=== PATIENT | female | born 1975 | race Hispanic/Latino ===

== ENCOUNTER 2019-12-01 23:22 | Emergency (ER) | payer SELFPAY ==
[2019-12-01] MEDS ORDERED: ONDANSETRON 4 MG (ODT) TAB ONE (23:56)
[2019-12-01] MEDS ORDERED: MECLIZINE HCL 12.5 MG TAB ONE (23:56)
--- NOTE | 2019-12-02 01:10 | ER ---
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 No other neuro deficits reported or assessed at this time. Coronavirus screen: The patient has NOT traveled to a country currently being monitored by the [facility] within the last 14 days. The patient has NOT had contact with any known and/or suspected case of coronavirus. Ebola Screen: Patient negative for fever greater than or equal to 101.5 degrees Fahrenheit, and additional compatible Ebola Virus Disease symptoms Patient denies exposure to infectious person. Patient denies travel to an Ebola-affected area in the 21 days before illness onset. No symptoms or risks identified at this time. Initial Sepsis Screen: Does the patient meet any 2 criteria? HR > 90 bpm. Does the patient have a suspected source of infection? No. Patient's initial sepsis screen is negative. Risk Assessment: Do you want to hurt yourself or someone else? Patient reports no desire to harm self or others. 23:40 Method Of Arrival: Ambulatory sg 23:40 Acuity: JOE 2 sg 23:40 Note pt observed to be incontinent of urine at this time. sg Historical: - Allergies: 23:42 No Known Allergies; sg - PMHx: 23:42 Hypothyroidism; sg - PSHx: 23:42 brain sugery; sg - Immunization history:: Adult Immunizations not up to date. - Social history:: Smoking status: Patient denies any tobacco usage or history of. Screenin:40 Abuse screen: Denies threats or abuse. Denies injuries from another. Nutritional sg screening: No deficits noted. Tuberculosis screening: No symptoms or risk factors identified. Never had TB. Fall Risk None identified. Assessment: 23:40 General: Appears in no apparent distress. well groomed, well developed, well nourished, sg Behavior is calm, cooperative, appropriate for age. Pain: Denies pain. 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 Gait is steady, Speech is normal, Facial symmetry appears normal, Reports dizziness, since 2300. Cardiovascular: Patient's skin is warm and dry. Respiratory: Airway is patent Respiratory effort is even, unlabored, Respiratory pattern is regular, symmetrical. GI: Abdomen is round non-distended, Reports nausea, vomiting. : No signs and/or symptoms were reported regarding the genitourinary system. EENT: No signs and/or symptoms were reported regarding the EENT system. Derm: Skin is pink, warm \\T\\ dry. Musculoskeletal: Circulation, motion, and sensation intact. Range of motion: intact in all extremities. 12/01 00:15 Reassessment: Patient and/or family updated on plan of care and expected duration. Pain ea level reassessed. Patient is alert, oriented x 3, equal unlabored respirations, skin warm/dry/pink. 01:43 Reassessment: Patient and/or family updated on plan of care and expected duration. Pain ea level reassessed. Patient is alert, oriented x 3, equal unlabored respirations, skin warm/dry/pink. Discharge instruction given to patient, verbalized the understanding of instruction, pt left ED accompanied by family. Pt tolerating well. Vital Signs: 11/30 23:40 BP 152 / 80; Pulse 80; Resp 18; Temp 97.7; Pulse Ox 100% on R/A; sg 12/01 01:43 BP 107 / 68; Pulse 68; Resp 18; Pulse Ox 100% on R/A; ea ED Course: 11/30 23:33 Patient arrived in ED. es 23:36 Alvin Jones MD is Attending Physician. tw4 23:42 Triage completed. sg 23:42 Arm band placed on. sg 23:42 Patient has correct armband on for positive identification. Bed in low position. Call ea light in reach. Side rails up X2. 23:49 Saumya Chi, MANUELA is Primary Nurse. ea 12/01 01:44 No provider procedures requiring assistance completed. Patient did not have IV access ea during this emergency room visit. Administered Medications: 11/30 23:54 Drug: Zofran (Ondansetron) 4 mg Route: PO; ea 12/01 01:40 Follow up: Response: No adverse reaction ea 00:15 Drug: Meclizine 25 mg Route: PO; ea 01:40 Follow up: Response: No adverse reaction ea Outcome: 01:09 Discharge ordered by . tw4 01:46 Discharged to home ambulatory, with family. ea 01:46 Condition: stable 01:46 Discharge instructions given to patient, Instructed on discharge instructions, follow up and referral plans. medication usage, Demonstrated understanding of instructions, follow-up care, medications, Prescriptions given X 2. 01:47 Patient left the ED. ea Signatures: Kuldeep Gallego, RN RN Elsa Somers Elena RN RN Alvin Martines MD MD tw4
[2019-12-02 01:55] VITALS: BP 107/68; O2SAT 100
[2019-12-02 02:28] VITALS: TEMP 97.7
--- NOTE | 2019-12-03 01:54 | EDPHYS ---
Physician Documentation [facility] Name: Mayra Gallo Age: 44 yrs Sex: Female : 1975 Arrival Date: 12/01/2019 Time: 23:33 Bed 5 Private MD: ED Physician Alvin Jones HPI: 12/01 03:56 This 44 yrs old Female presents to ER via Ambulatory with complaints of tw4 Dizziness, Headache, Vomiting. 03:56 The patient presents with sense of spinning. Onset: The symptoms/episode began/occurred tw4 just prior to arrival, today. Context: occurred at home. Modifying factors: The symptoms are alleviated by nothing, the symptoms are aggravated by nothing. Associated signs and symptoms: The patient has no apparent associated signs or symptoms. Severity of symptoms: At their worst the symptoms were mild in the emergency department the symptoms are unchanged. The patient has not experienced similar symptoms in the past. Historical: - Allergies: 11/30 23:42 No Known Allergies; sg - PMHx: 23:42 Hypothyroidism; sg - PSHx: 23:42 brain sugery; sg - Immunization history:: Adult Immunizations not up to date. - Social history:: Smoking status: Patient denies any tobacco usage or history of. ROS: 12/01 03:56 Constitutional: Negative for fever, chills, and weight loss, Eyes: Negative for injury, tw4 pain, redness, and discharge. ENT: Positive for ear pain. 03:56 Cardiovascular: Negative for chest pain, palpitations, and edema, Respiratory: Negative tw4 for shortness of breath, cough, wheezing, and pleuritic chest pain, Abdomen/GI: Negative for abdominal pain, nausea, vomiting, diarrhea, and constipation, Skin: Negative for injury, rash, and discoloration. 03:56 Neuro: Positive for dizziness, Negative for altered mental status, headache, hearing loss, loss of consciousness, numbness, seizure activity, speech changes, syncope, near syncope, tinnitus, tremor, visual changes, weakness. Exam: 03:56 Constitutional: This is a well developed, well nourished patient who is awake, alert, tw4 and in no acute distress. Head/Face: Normocephalic, atraumatic. Chest/axilla: Normal chest wall appearance and motion. Nontender with no deformity. No lesions are appreciated. Cardiovascular: Regular rate and rhythm with a normal S1 and S2. No gallops, murmurs, or rubs. Normal PMI, no JVD. No pulse deficits. Respiratory: Lungs have equal breath sounds bilaterally, clear to auscultation and percussion. No rales, rhonchi or wheezes noted. No increased work of breathing, no retractions or nasal flaring. Abdomen/GI: Soft, non-tender, with normal bowel sounds. No distension or tympany. No guarding or rebound. No evidence of tenderness throughout. MS/ Extremity: Pulses equal, no cyanosis. Neurovascular intact. Full, normal range of motion. Neuro: Awake and alert, GCS 15, oriented to person, place, time, and situation. Cranial nerves II-XII grossly intact. Motor strength 5/5 in all extremities. Sensory grossly intact. Cerebellar exam normal. Normal gait. Vital Signs: 11/30 23:40 BP 152 / 80; Pulse 80; Resp 18; Temp 97.7; Pulse Ox 100% on R/A; sg 12/01 01:43 BP 107 / 68; Pulse 68; Resp 18; Pulse Ox 100% on R/A; ea MDM: 00:04 Patient medically screened. tw4 03:56 Differential diagnosis: generalized weakness, idiopathic dizziness, near-syncope, tw4 vertigo. Data reviewed: vital signs, nurses notes. Counseling: I had a detailed discussion with the patient and/or guardian regarding: the historical points, exam findings, and any diagnostic results supporting the discharge/admit diagnosis. Medication response: Zofran relieved the patient's nausea. meclizine. Response to treatment: the patient's symptoms have markedly improved after treatment, and as a result, I will discharge patient. Special discussion: I discussed with the patient/guardian in detail that at this point there is no indication for admission to the hospital. It is understood, however, that if the symptoms persist or worsen the patient needs to return immediately for re-evaluation. Administered Medications: 11/30 23:54 Drug: Zofran (Ondansetron) 4 mg Route: PO; ea 12/01 01:40 Follow up: Response: No adverse reaction ea 00:15 Drug: Meclizine 25 mg Route: PO; ea 01:40 Follow up: Response: No adverse reaction ea Disposition: 04:05 Chart complete. tw4 Disposition: 12/02/19 01:09 Discharged to Home. Impression: Vertigo of central origin, right ear. - Condition is Stable. - Discharge Instructions: Dizziness, Vertigo, Vertigo, [id number]. - Prescriptions for Meclizine 25 mg Oral Tablet - take 1 tablet by ORAL route every 8 hours As needed; 30 tablet. Zofran 4 mg Oral Tablet - take 1 tablet by ORAL route every 12 hours As needed; 20 tablet. - Medication Reconciliation Form, Thank You Letter, Antibiotic Education, Prescription Opioid Use form. - Follow up: Private Physician; When: Upon discharge from the Emergency Department; Reason: Recheck today's complaints, Continuance of care, Re-evaluation by your physician. - Problem is new. - Symptoms have improved. Signatures: Kuldeep Gallego RN Saumya Rivers RN Alvin Anderson ea, MD MD tw4 Corrections: (The following items were deleted from the chart) 01:47 01:09 12/02/2019 01:09 Discharged to Home. Impression: Vertigo of central origin, right ea ear. Condition is Stable. Forms are Medication Reconciliation Form, Thank You Letter, Antibiotic Education, Prescription Opioid Use. Follow up: Private Physician; When: Upon discharge from the Emergency Department; Reason: Recheck today's complaints, Continuance of care, Re-evaluation by your physician. Problem is new. Symptoms have improved. tw4 03:59 03:56 Cardiovascular: Negative for chest pain, palpitations, and edema, Respiratory: tw4 Negative for shortness of breath, cough, wheezing, and pleuritic chest pain, Abdomen/GI: Negative for abdominal pain, nausea, vomiting, diarrhea, and constipation, Back: Negative for injury and pain, Skin: Negative for injury, rash, and discoloration, Neuro: Negative for headache, weakness, numbness, tingling, and seizure, tw4
== END 2019-12-02 01:47 | disposition home or self-care (01) ==
LOC: ER 23:22
DX: H81.4 Vertigo of central origin (principal)
CPT/HCPCS: 99283; J8597

== ENCOUNTER 2020-01-04 19:10 | Emergency (ER) | payer SELFPAY ==
--- NOTE | 2020-01-04 20:41 | EDPHYS ---
Physician Documentation [facility] Name: Mayra Gallo Age: 44 yrs Sex: Female : 1975 Arrival Date: 01/04/2020 Time: 19:12 Bed 15 Private MD: ED Physician Alvin Jones HPI: 01/03 23:53 This 44 yrs old Female presents to ER via Ambulatory with complaints of tw4 Anxious. 23:53 The patient presents to the emergency department with anxiety. Onset: The tw4 symptoms/episode began/occurred today. Past psychiatric history: Prior diagnosis: no previous psychiatric diagnosis known. Associated signs and symptoms: The patient has no apparent associated signs or symptoms. The patient has not experienced similar symptoms in the past. 23:53 Severity of symptoms: At their worst the symptoms were mild in the emergency department tw4 the symptoms are unchanged. 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 - Social history:: Smoking status: Patient denies any tobacco usage or history of. ROS: 23:53 Psych: Positive for anxiety, Negative for depression, drug dependence, alcohol tw4 dependence, auditory hallucinations. 23:53 Constitutional: Negative for fever, chills, and weight loss, Eyes: Negative for injury, tw4 pain, redness, and discharge, Respiratory: Negative for shortness of breath, cough, wheezing, and pleuritic chest pain, Abdomen/GI: Negative for abdominal pain, nausea, vomiting, diarrhea, and constipation. 23:53 Back: Negative for injury and pain, MS/Extremity: Negative for injury and deformity, Skin: Negative for injury, rash, and discoloration. 23:53 Cardiovascular: Positive for palpitations, Negative for chest pain, edema, orthopnea. Exam: 23:53 Constitutional: This is a well developed, well nourished patient who is awake, alert, tw4 and in no acute distress. Head/Face: Normocephalic, atraumatic. Chest/axilla: Normal chest wall appearance and motion. Nontender with no deformity. No lesions are appreciated. Cardiovascular: Regular rate and rhythm with a normal S1 and S2. No gallops, murmurs, or rubs. Normal PMI, no JVD. No pulse deficits. Respiratory: Lungs have equal breath sounds bilaterally, clear to auscultation and percussion. No rales, rhonchi or wheezes noted. No increased work of breathing, no retractions or nasal flaring. Abdomen/GI: Soft, non-tender, with normal bowel sounds. No distension or tympany. No guarding or rebound. No evidence of tenderness throughout. Skin: Warm, dry with normal turgor. Normal color with no rashes, no lesions, and no evidence of cellulitis. MS/ Extremity: Pulses equal, no cyanosis. Neurovascular intact. Full, normal range of motion. Neuro: Awake and alert, GCS 15, oriented to person, place, time, and situation. Cranial nerves II-XII grossly intact. Motor strength 5/5 in all extremities. Sensory grossly intact. Cerebellar exam normal. Normal gait. Vital Signs: 19:18 BP 126 / 88; Pulse 97; Resp 16 S; Temp 97.5(TE); Pulse Ox 99% on R/A; Weight 69.85 kg ca1 (R); Height 5 ft. 3 in. (160.02 cm) (R); 20:45 BP 122 / 68; Pulse 92; Resp 18; Temp 97.8; Pulse Ox 100% on R/A; mg2 19:18 Body Mass Index 27.28 (69.85 kg, 160.02 cm) ca1 MDM: 19:42 Patient medically screened. tw4 23:55 Differential diagnosis: acute psychotic break, depression. Data reviewed: vital signs, tw4 nurses notes, EKG. Data interpreted: Pulse oximetry: Interpretation: normal. Counseling: I had a detailed discussion with the patient and/or guardian regarding: the historical points, exam findings, and any diagnostic results supporting the discharge/admit diagnosis. Special discussion: I discussed with the patient/guardian in detail that at this point there is no indication for admission to the hospital. It is understood, however, that if the symptoms persist or worsen the patient needs to return immediately for re-evaluation. 01/03 19:44 Order name: EKG; Complete Time: 19:45 tw4 EC:53 Rate is 92 beats/min. Rhythm is regular. QRS [place] is Normal. [place] interval is normal. QRS tw4 interval is normal. QT interval is normal. No Q waves. T waves are Normal. No ST changes noted. Clinical impression: Normal ECG. Interpreted by me. Reviewed by me. Administered Medications: No medications were administered Disposition: 01/04/20 20:41 Discharged to Home. Impression: Anxiety disorder, unspecified. - Condition is Stable. - Discharge Instructions: Panic Attacks, Palpitations, Social Anxiety Disorder. - Medication Reconciliation Form, Thank You Letter, Antibiotic Education, Prescription Opioid Use form. - Follow up: Private Physician; When: Upon discharge from the Emergency Department; Reason: Recheck today's complaints, Continuance of care, Re-evaluation by your physician. - Problem is new. - Symptoms have improved. Signatures: Alvin Jones MD MD tw4 Luiz Laguna RN RN mg2 Sandeep, MANUELA Valentine RN ca1 Corrections: (The following items were deleted from the chart) 21:00 20:41 01/04/2020 20:41 Discharged to Home. Impression: Anxiety disorder, unspecified. mg2 Condition is Stable. Forms are Medication Reconciliation Form, Thank You Letter, Antibiotic Education, Prescription Opioid Use. Follow up: Private Physician; When: Upon discharge from the Emergency Department; Reason: Recheck today's complaints, Continuance of care, Re-evaluation by your physician. Problem is new. Symptoms have improved. tw4 23:55 23:53 Constitutional: Negative for fever, chills, and weight loss, Eyes: Negative for tw4 injury, pain, redness, and discharge, Cardiovascular: Negative for chest pain, palpitations, and edema, Respiratory: Negative for shortness of breath, cough, wheezing, and pleuritic chest pain, Abdomen/GI: Negative for abdominal pain, nausea, vomiting, diarrhea, and constipation, Back: Negative for injury and pain, MS/Extremity: Negative for injury and deformity, tw4
--- NOTE | 2020-01-04 20:41 | ER ---
Nurse's Notes [facility] Name: Mayra Gallo Age: 44 yrs Sex: Female : 1975 Arrival Date: 01/04/2020 Time: 19:12 Bed 15 Private MD: Diagnosis: Anxiety disorder, unspecified Presentation: 01/03 19:18 Chief complaint: Patient states: Took Cephalexin 500 mg, Ibuprofen 600 mg, energy ca1 drink, tea and coffee at the same time. I feel weird, blood rushing to me head, nervous and anxious. Coronavirus screen: Proceed with normal triage. Patient denies a cough. Patient denies shortness of breath or difficulty breathing. Patient denies measured and/or subjective temperature greater than 100.4F prior to today's visit. Patient denies travel on a cruise ship or to a country the [facility] currently lists as an affected area. Patient denies contact with known and/or suspected case of COVID-19. Ebola Screen: Patient negative for fever greater than or equal to 101.5 degrees Fahrenheit, and additional compatible Ebola Virus Disease symptoms Patient denies exposure to infectious person. Patient denies travel to an Ebola-affected area in the 21 days before illness onset. No symptoms or risks identified at this time. Initial Sepsis Screen: Does the patient meet any 2 criteria? No. Patient's initial sepsis screen is negative. Does the patient have a suspected source of infection? No. Patient's initial sepsis screen is negative. Risk Assessment: Do you want to hurt yourself or someone else? Patient reports no desire to harm self or others. Onset of symptoms was January 04, 2020 at 16:30. 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 - Social history:: Smoking status: Patient denies any tobacco usage or history of. Screenin:58 Abuse screen: Denies threats or abuse. Denies injuries from another. Nutritional mg2 screening: No deficits noted. Tuberculosis screening: No symptoms or risk factors identified. Fall Risk None identified. Assessment: 20:58 General: Appears in no apparent distress. comfortable, Behavior is calm, cooperative. mg2 Pain: Denies pain. Neuro: Level of Consciousness is awake, alert, obeys commands, Oriented to person, place, time, situation. Cardiovascular: Capillary refill < 3 seconds Patient's skin is warm and dry. Cardiovascular: Reports palpitations. Respiratory: Airway is patent Respiratory effort is even, unlabored, Respiratory pattern is regular, symmetrical. GI: No signs and/or symptoms were reported involving the gastrointestinal system. : No signs and/or symptoms were reported regarding the genitourinary system. EENT: No signs and/or symptoms were reported regarding the EENT system. Derm: Skin is intact, is healthy with good turgor, Skin is pink, warm \T\ dry. normal. Musculoskeletal: Circulation, motion, and sensation intact. Capillary refill < 3 seconds. Vital Signs: 19:18 BP 126 / 88; Pulse 97; Resp 16 S; Temp 97.5(TE); Pulse Ox 99% on R/A; Weight 69.85 kg ca1 (R); Height 5 ft. 3 in. (160.02 cm) (R); 20:45 BP 122 / 68; Pulse 92; Resp 18; Temp 97.8; Pulse Ox 100% on R/A; mg2 19:18 Body Mass Index 27.28 (69.85 kg, 160.02 cm) ca1 ED Course: 19:12 Patient arrived in ED. cl3 19:22 Triage completed. ca1 19:24 Arm band placed on right wrist. ca1 19:30 Luiz Laguna, RN is Primary Nurse. mg2 19:40 EKG done, by ED staff. lt1 19:41 Call light in reach. Door closed. Lights dimmed. Warm blanket given. Verbal reassurance lt1 given. 19:42 Alvin Jones MD is Attending Physician. tw4 20:59 No provider procedures requiring assistance completed. Patient did not have IV access mg2 during this emergency room visit. Administered Medications: No medications were administered Outcome: 20:41 Discharge ordered by . tw4 20:59 Discharged to home ambulatory. mg2 20:59 Condition: stable 20:59 Discharge instructions given to patient, Instructed on discharge instructions, follow up and referral plans. Demonstrated understanding of instructions, follow-up care. 21:00 Patient left the ED. mg2 Signatures: Alvin Jones MD MD tw4 Luiz Laguna RN RN mg2 Meme Hopkins RN RN ca1 Maryuri, Teetee 1 Brayden Chawla cl3
[2020-01-04 21:20] VITALS: BP 122/68; TEMP 97.8; O2SAT 100
--- NOTE | 2020-01-06 07:41 | EKG ---
Test Date: 2020-01-04 Test Time: 19:36:50 Certified Ophthalmic Technologist: XIAOT MEASUREMENT RESULTS: Intervals: Rate: 92 DE: 160 QRSD: 74 QT: 378 QTc: 467 [place]: P: 45 DE: 160 QRS: 18 T: 33 INTERPRETIVE STATEMENTS: Normal sinus rhythm Normal ECG No previous ECG available for comparison Electronically Signed On 01-06-20 07:39:14 CDT by Naveen Reynoso
== END 2020-01-04 21:00 | disposition home or self-care (01) ==
LOC: ER 19:10
DX: F41.9 Anxiety disorder, unspecified (principal); E03.9 Hypothyroidism, unspecified
CPT/HCPCS: 93005; 99283

== ENCOUNTER 2021-04-29 12:01 | Emergency (ER) | payer SELFPAY ==
--- OUTSIDE RECORDS SUMMARY | 2021-04-29 12:03 | XMS REPORT | Continuity of Care Document ---
:1975 Author Organization [facility] t Address [address] [place] [address] Care Team Providers Name Role Phone Unavailable Unavailable Unavailable Problems This patient has no known problems. Allergies, Adverse Reactions, Alerts This patient has no known allergies or adverse reactions. Medications This patient has no known medications. Procedures This patient has no known procedures. Results Test Description Test Time Test Comments Results Result [facility] e Comments SCR MAMM 2021-01-21 BILATERAL MARICARMEN 09:50:45 CAD DIGITAL Name: Mercedes : 1975 Sex: F - SCR MAMM BILATERAL MARICARMEN CAD DIGITALBILATERAL DIGITAL SCREENING MAMMOGRAM 3D/2D WITH CAD: 01/16/2021LINICAL: Asymptomatic. Digital breast tomosynthesis was performed in addition to routine CC and MLO views. Current mammographic images were evaluated by [employer] ImageVeriShow CAD (computed aided detection) software. Comparison is made to exam dated 12/09/2014 mammogram - [facility] Mammography. The tissue of both breasts is extremely dense, which lowers the sensitivity of mammography. There are nodular densities bilaterally that most likely represent benign fibroadenomas, cysts, or nodular breast tissue, however this must be confirmed with ultrasound. No suspicious mass, architectural distortion, malignant type calcification, or lymph node abnormality detected. IMPRESSION: INCOMPLETE: ADDITIONAL IMAGING EVALUATION NEEDEDBilateral ultrasound recommended. Chelsea castro/randi:01/21/2021 09:50:45 Trade Economist: Brittney Cardozo MM, [facility] Mammographyletter sent: Additional Imaging Mammogram BI-RADS: 0 Incomplete: Additional Imaging Evaluation Needed
[2021-04-29] MEDS ORDERED: ONDANSETRON 4 MG (ODT) TAB ONE (13:55)
[2021-04-29] MEDS ORDERED: NA CHLORIDE 0.9% 1,000 ML ONE (13:55)
[2021-04-29 14:05] LABS: Absolute Lymphocytes (CBC) 0.8 K/uL (0.7-4.9); Basophils % 0.6 % (0-1.3); Hematocrit 38.2 % (36.0-45.0); Lymphocytes % 19.4 % (15.3-44.8); MPV 7.7 fL (7.6-11.3); RBC Red Blood Cell Count 4.68 M/uL (3.86-4.86)
[2021-04-29 14:08] LABS: ALT/SGPT 24 U/L (12-78); AST/SGOT 16 U/L (15-37); Alkaline Phosphatase 63 U/L (45-117); BUN Blood Urea Nitrogen 11 mg/dL (7-18); Bicarbonate 28 mmol/L (21-32); Bilirubin Direct < 0.1 mg/dL (0-0.2); Bilirubin Total 0.1 mg/dL (0.2-1.0); Glucose Level 104 mg/dL (74-106); Lipase 132 U/L (73-393); Potassium 3.8 mmol/L (3.5-5.1); Sodium Level 138 mmol/L (136-145)
--- NOTE | 2021-04-29 14:50 | RAD REPORT ---
EXAM DESCRIPTION: CT - Abdomen Pelvis W Contrast - 04/29/2021 2:28 pm CLINICAL HISTORY: Abdominal pain COMPARISON: none. TECHNIQUE: Computed axial tomography of the abdomen pelvis was obtained. 100 cc Isovue-300 was admin istered intravenously. Oral contrast was not requested which limits evaluation of bowel. All CT scans are performed using dose optimization technique as appropriate and may include automated exposure control or mA/KV adjustment according to patient size. FINDINGS: Small hepatic cysts Spleen, pancreas, adrenal and kidneys appear unremarkable. There is no evidence of diverticulitis. Normal appendix IMPRESSION: No acute abnormality is displayed.
--- NOTE | 2021-04-29 16:12 | ER ---
Nurse's Notes [facility] Name: Mayra Gallo Age: 45 yrs Sex: Female : 1975 Arrival Date: 04/29/2021 Time: 12:04 Bed DIS11 Private MD: Diagnosis: Coronavirus infection, unspecified Presentation: 04/29 13:28 Chief complaint: Patient states: N/V x 2 days. Coronavirus screen: Client denies travel jl7 out of the [place] in the last 14 days. nausea, vomiting. Client presents with at least one sign or symptom that may indicate coronavirus-19. Standard/surgical mask placed on the client. Provider contacted for isolation considerations. Ebola Screen: No symptoms or risks identified at this time. Initial Sepsis Screen: Does the patient meet any 2 criteria? No. Patient's initial sepsis screen is negative. Does the patient have a suspected source of infection? No. Patient's initial sepsis screen is negative. Risk Assessment: Do you want to hurt yourself or someone else? Patient reports no desire to harm self or others. Onset of symptoms was April 28, 2021. 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 - Social history:: Smoking status: Patient denies any tobacco usage or history of. Vital Signs: 13:28 BP 99 / 81; Pulse 124; Resp 15; Temp 98.5; Pulse Ox 100% ; jl7 16:00 BP 105 / 72; Pulse 88; Resp 16 S; Pulse Ox 99% on R/A; aa5 ED Course: 12:04 Patient arrived in ED. ds1 13:30 Triage completed. jl7 13:30 Lyssa Nunez FNP-C is [facility]. kb 13:30 Steve Cole MD is Attending Physician. kb 13:30 Arm band placed on right wrist. Patient placed in waiting room, Patient notified of jl7 wait time. 14:28 CT Abd/Pelvis - IV Contrast Only In Process Unspecified. EDMS 16:30 IV discontinued, intact, bleeding controlled, No redness/swelling at site. ld1 Administered Medications: 13:35 Drug: NS 0.9% 1000 ml Route: IV; Rate: 1000 ml; Site: right antecubital; jl7 13:35 Drug: Zofran (Ondansetron) 4 mg Route: PO; aa5 14:48 Not Given (Physician Discretion): Zofran (Ondansetron) 4 mg IVP once; over 2 minutes aa5 Outcome: 16:12 Discharge ordered by . adonis 16:29 Discharged to home ambulatory. ld1 16:29 Condition: stable 16:29 Discharge instructions given to patient, Instructed on discharge instructions, follow up and referral plans. medication usage, Demonstrated understanding of instructions, follow-up care, medications. 16:30 Patient left the ED. ld1 Signatures: Dispatcher [employer] EDDC Lyssa Nunez, PASTRY SUPERVISOR-C PASTRY SUPERVISOR-Ckb Cyndi Geronimo ds1 Nevin Dyer RN RN aa5 Winsome Edouard RN RN jl7 Brittney Alexandre RN RN ld1
--- NOTE | 2021-04-29 16:12 | EDPHYS ---
Physician Documentation [facility] Name: Mayra Gallo Age: 45 yrs Sex: Female : 1975 Arrival Date: 04/29/2021 Time: 12:04 Bed DIS11 Private MD: ED Physician Steve Cole HPI: 04/29 14:11 This 45 yrs old Female presents to ER via Ambulatory with complaints of kb Abdominal Pain, Vomiting. 14:22 The patient presents to the emergency department with nausea, vomiting. Onset: The kb symptoms/episode began/occurred yesterday. Possible causes: unknown. The symptoms are aggravated by nothing. The symptoms are alleviated by nothing. Associated signs and symptoms: Pertinent positives: nausea, vomiting. Severity of symptoms: At their worst the symptoms were mild moderate in the emergency department the symptoms are unchanged. The patient has not experienced similar symptoms in the past. The patient has not recently seen a physician. 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 - Social history:: Smoking status: Patient denies any tobacco usage or history of. ROS: 14:11 Constitutional: Negative for fever, chills, and weight loss. kb 14:11 Respiratory: Positive for cough. 14:11 Abdomen/GI: Positive for nausea and vomiting. 14:11 All other systems are negative. Exam: 14:11 Constitutional: This is a well developed, well nourished patient who is awake, alert, kb and in no acute distress. Head/Face: Normocephalic, atraumatic. ENT: Moist Mucous membranes Cardiovascular: Regular rate and rhythm with a normal S1 and S2. No gallops, murmurs, or rubs. No pulse deficits. Respiratory: Respirations even and unlabored. No increased work of breathing, no retractions or nasal flaring. Skin: Warm, dry with normal turgor. Normal color. MS/ Extremity: Pulses equal, no cyanosis. Neurovascular intact. Full, normal range of motion. Neuro: Awake and alert, GCS 15, oriented to person, place, time, and situation. Moves all extremities. Normal gait. Psych: Awake, alert, with orientation to person, place and time. Behavior, mood, and affect are within normal limits. 14:12 Abdomen/GI: Inspection: abdomen appears normal, Bowel sounds: normal, in all quadrants, kb Palpation: soft, in all quadrants, mild abdominal tenderness, in the left upper quadrant and left lower quadrant. Vital Signs: 13:28 BP 99 / 81; Pulse 124; Resp 15; Temp 98.5; Pulse Ox 100% ; jl7 16:00 BP 105 / 72; Pulse 88; Resp 16 S; Pulse Ox 99% on R/A; aa5 MDM: 13:30 Patient medically screened. kb 14:11 Data reviewed: vital signs, nurses notes. Data interpreted: Pulse oximetry: on room air kb is 100 %. Interpretation: normal. 16:11 Counseling: I had a detailed discussion with the patient and/or guardian regarding: the kb historical points, exam findings, and any diagnostic results supporting the discharge/admit diagnosis, lab results, radiology results, the need for outpatient follow up, a family practitioner, to return to the emergency department if symptoms worsen or persist or if there are any questions or concerns that arise at home. 04/29 13:31 Order name: Basic Metabolic Panel; Complete Time: 14:09 kb 04/29 13:31 Order name: CBC with Diff; Complete Time: 14:26 kb 04/29 13:31 Order name: Hepatic Function; Complete Time: 14:09 kb 04/29 13:31 Order name: Lipase; Complete Time: 14:09 kb 04/29 16:12 Order name: SARS-COV-2 RT PCR; Complete Time: 16:12 EDMS 04/29 13:31 Order name: IV Saline Lock; Complete Time: 14:05 kb 04/29 13:31 Order name: Labs collected and sent; Complete Time: 14:05 kb 04/29 14:10 Order name: CT Abd/Pelvis - IV Contrast Only; Complete Time: 14:53 kb Administered Medications: 13:35 Drug: NS 0.9% 1000 ml Route: IV; Rate: 1000 ml; Site: right antecubital; jl7 13:35 Drug: Zofran (Ondansetron) 4 mg Route: PO; aa5 14:48 Not Given (Physician Discretion): Zofran (Ondansetron) 4 mg IVP once; over 2 minutes aa5 Disposition: 04/30 07:20 Co-signature as Attending Physician, Steve Cole MD I agree with the assessment and kdr plan of care. Disposition Summary: 04/29/21 16:12 Discharge Ordered Location: Home kb Condition: Stable kb Diagnosis - Coronavirus infection, unspecified kb Followup: kb - With: Emergency Department - When: As needed - Reason: Worsening of condition Followup: kb - With: Private Physician - When: 2 - 3 days - Reason: Recheck today's complaints, Continuance of care, Re-evaluation by your physician Discharge Instructions: - Discharge Summary Sheet kb - Viral Respiratory Infection, [id number] kb - COVID-19 kb Forms: - Medication Reconciliation Form kb - Thank You Letter kb - Antibiotic Education kb - Prescription Opioid Use kb Prescriptions: - Zofran 4 mg Oral Tablet - take 1 tablet by ORAL route every 6 hours As needed; 20 tablet; Refills: 0, kb Product Selection Permitted Signatures: Dispatcher [employer] EDMS Lyssa Nunez FNP-C FNP-Ckb Rittger, Kevin, MD MD kdr Calderon, Audri, RN RN aa5 Winsome Edouard RN RN jl7 Corrections: (The following items were deleted from the chart) 04/29 14:21 14:11 Constitutional: This is a well developed, well nourished patient who is awake, kb alert, and in no acute distress. Head/Face: Normocephalic, atraumatic. ENT: Moist Mucous membranes Cardiovascular: Regular rate and rhythm with a normal S1 and S2. No gallops, murmurs, or rubs. No pulse deficits. Respiratory: Respirations even and unlabored. No increased work of breathing, no retractions or nasal flaring. Abdomen/GI: Soft, non-tender. No distention Skin: Warm, dry with normal turgor. Normal color. MS/ Extremity: Pulses equal, no cyanosis. Neurovascular intact. Full, normal range of motion. Neuro: Awake and alert, GCS 15, oriented to person, place, time, and situation. Moves all extremities. Normal gait. Psych: Awake, alert, with orientation to person, place and time. Behavior, mood, and affect are within normal limits. kb 14:55 13:32 CORONAVIRUS+MR.LAB.BRZ ordered. EDMS EDMS
[2021-04-29 16:53] VITALS: TEMP 98.5
[2021-04-29 16:55] VITALS: BP 105/72; O2SAT 99
== END 2021-04-29 16:30 | disposition home or self-care (01) ==
LOC: ER 12:01
DX: U07.1 COVID-19 (principal)
CPT/HCPCS: 36415; 74177; 80048; 80076; 83690; 85025; 99283; J7030; Q9967; U0003

== ENCOUNTER 2021-05-07 19:32 | Emergency (ER) | payer SELFPAY ==
--- OUTSIDE RECORDS SUMMARY | 2021-05-07 19:36 | XMS REPORT | Continuity of Care Document ---
:1975 Author Organization [facility] t Address [address] [place] [address] Care Team Providers Name Role Phone Unavailable Unavailable Unavailable Problems This patient has no known problems. Allergies, Adverse Reactions, Alerts This patient has no known allergies or adverse reactions. Medications This patient has no known medications. Procedures This patient has no known procedures. Results Test Description Test Time Test Comments Results Result [facility] e Comments SCR MAMM 2021-01-21 BILATERAL MARICARMEN 09:50:45 CAD DIGITAL Name: Mercedes : 1975 Sex: F - SCR MAMM BILATERAL MARICARMEN CAD DIGITALBILATERAL DIGITAL SCREENING MAMMOGRAM 3D/2D WITH CAD: 01/16/2021LINICAL: Asymptomatic. Digital breast tomosynthesis was performed in addition to routine CC and MLO views. Current mammographic images were evaluated by [employer] CAD (computed aided detection) software. Comparison is made to exam dated 12/09/2014 mammogram - [facility]. The tissue of both breasts is extremely dense, which lowers the sensitivity of mammography. There are nodular densities bilaterally that most likely represent benign fibroadenomas, cysts, or nodular breast tissue, however this must be confirmed with ultrasound. No suspicious mass, architectural distortion, malignant type calcification, or lymph node abnormality detected. IMPRESSION: INCOMPLETE: ADDITIONAL IMAGING EVALUATION NEEDEDBilateral ultrasound recommended. Chelsea castro/randi:01/21/2021 09:50:45 Employment Appeals Examiner: Brittney Cardozo MM, [facility] Mammography[facility] sent: Additional Imaging Mammogram BI-RADS: 0 Incomplete: Additional Imaging Evaluation Needed
--- NOTE | 2021-05-07 22:22 | EDPHYS ---
Physician Documentation [facility] Name: Mayra Gallo Age: 45 yrs Sex: Female : 1975 Arrival Date: 05/07/2021 Time: 19:35 Bed DX1 Private MD: ED Physician Shy Rosas HPI: 05/07 22:17 This 45 yrs old Female presents to ER via Ambulatory with complaints of sp3 Anxiety. 22:17 45-year-old female with history of hypothyroidism and anxiety treated with sp3 [id number] [place]'s wort presents to the ED for anxiety and questions regarding her COVID-19 diagnosis made on 04/29. Patient states that she was anxious upon arrival but during her wait her anxiety has ceased as evident by her heart rate coming down. All questions regarding her COVID-19 have been answered as they were mainly surrounding, she will be infectious and questions regarding her isolation status. Patient has no further symptoms. She did mention knee pain and abdominal pain when she first got here but she states that those were completely minor and she no longer has them and does not wish to be evaluated for them.. 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 - Social history:: Smoking status: Patient denies any tobacco usage or history of. ROS: 22:19 Constitutional: Negative for fever, chills, and weight loss, Eyes: Negative for injury, sp3 pain, redness, and discharge, Cardiovascular: Negative for chest pain, palpitations, and edema, Respiratory: Negative for shortness of breath, cough, wheezing, and pleuritic chest pain, Abdomen/GI: Negative for abdominal pain, nausea, vomiting, diarrhea, and constipation, MS/Extremity: Negative for injury and deformity, Skin: Negative for injury, rash, and discoloration, Neuro: Negative for headache, weakness, numbness, tingling, and seizure, Allergy/Immunology: Negative for hives, rash, and allergies, Endocrine: Negative for neck swelling, polydipsia, polyuria, polyphagia, and marked weight changes. 22:19 All other systems are negative. Exam: 22:19 Constitutional: This is a well developed, well nourished patient who is awake, alert, sp3 and in no acute distress. Head/Face: Normocephalic, atraumatic. Eyes: Pupils equal round and reactive to light, extra-ocular motions intact. Lids and lashes normal. Conjunctiva and sclera are non-icteric and not injected. Cornea within normal limits. Periorbital areas with no swelling, redness, or edema. Neck: Trachea midline, no thyromegaly or masses palpated, and no cervical lymphadenopathy. Supple, full range of motion without nuchal rigidity, or vertebral point tenderness. No Meningismus. Chest/axilla: Normal chest wall appearance and motion. Nontender with no deformity. No lesions are appreciated. Cardiovascular: Regular rate and rhythm with a normal S1 and S2. No gallops, murmurs, or rubs. Normal PMI, no JVD. No pulse deficits. Respiratory: Lungs have equal breath sounds bilaterally, clear to auscultation and percussion. No rales, rhonchi or wheezes noted. No increased work of breathing, no retractions or nasal flaring. Abdomen/GI: Soft, non-tender, with normal bowel sounds. No distension or tympany. No guarding or rebound. No evidence of tenderness throughout. Back: No spinal tenderness. No costovertebral tenderness. Full range of motion. Skin: Warm, dry with normal turgor. Normal color with no rashes, no lesions, and no evidence of cellulitis. MS/ Extremity: Pulses equal, no cyanosis. Neurovascular intact. Full, normal range of motion. Neuro: Awake and alert, GCS 15, oriented to person, place, time, and situation. Cranial nerves II-XII grossly intact. Motor strength 5/5 in all extremities. Sensory grossly intact. Cerebellar exam normal. Normal gait. Vital Signs: 19:58 Weight 63.5 kg (R); Height 5 ft. 3 in. (160.02 cm) (R); Pain 1/10; kg 20:05 BP 106 / 71; Pulse 108; Resp 20; Temp 98.2(O); Pulse Ox 98% on R/A; Weight 63.5 kg (R); kg Height 5 ft. 3 in. (160.02 cm); Pain 1/10; 21:50 BP 110 / 75; Pulse 99; Resp 19; Pulse Ox 98% on R/A; ld1 20:05 Body Mass Index 24.80 (63.50 kg, 160.02 cm) kg MDM: 22:17 Patient medically screened. sp3 22:20 Data reviewed: vital signs, nurses notes. ED course: Patient sitting calmly in no acute sp3 distress with no further anxiety. Heart rate is 88 on my evaluation. Remainder vital signs remained normal and stable. I have advised her to follow-up with her PCP regarding her anxiety and all questions regarding COVID-19 have been answered. We will discharge patient at this time. No further work-up indicated and no critical emergency exists. Patient is not homicidal, suicidal or psychotic.. Administered Medications: No medications were administered Disposition Summary: 05/07/21 22:21 Discharge Ordered Location: Home sp3 Condition: Stable sp3 Diagnosis - Anxiety disorder, unspecified sp3 Followup: sp3 - With: Private Physician - When: - Reason: Recheck today's complaints, Re-evaluation by your physician Discharge Instructions: - Discharge Summary Sheet sp3 - Generalized Anxiety Disorder, Adult sp3 - 10 Things You Can Do to Manage Your COVID-19 Symptoms at Home - [facility] sp3 - COVID-19: Quarantine vs. Isolation - [facility] sp3 Forms: - Medication Reconciliation Form sp3 - Thank You Letter sp3 - Antibiotic Education sp3 - Prescription Opioid Use sp3 Signatures: India Mauricio, RN RN Shy Del Valle sp3
--- NOTE | 2021-05-07 22:22 | ER ---
Nurse's Notes [facility] Name: Mayra Gallo Age: 45 yrs Sex: Female : 1975 Arrival Date: 05/07/2021 Time: 19:35 Bed DX1 Private MD: Diagnosis: Anxiety disorder, unspecified Presentation: 05/07 19:58 Chief complaint:. Chief complaint: Patient states: Anxiety x 2 days, left knee pain kg that started on her drive to the ER. Pt stated she was diagnosed COVID + 04/29. Coronavirus screen: Client denies travel out of the [place] in the last 14 days. At this time, unable to obtain information related to travel outside the [place] At this time, the client does not indicate any symptoms associated with coronavirus-19. Ebola Screen: Patient negative for fever greater than or equal to 101.5 degrees Fahrenheit, and additional compatible Ebola Virus Disease symptoms Patient denies exposure to infectious person. Patient denies travel to an Ebola-affected area in the 21 days before illness onset. Initial Sepsis Screen: Does the patient meet any 2 criteria? No. Patient's initial sepsis screen is negative. Does the patient have a suspected source of infection? No. Patient's initial sepsis screen is negative. Risk Assessment: Do you want to hurt yourself or someone else? Patient reports no desire to harm self or others. Onset of symptoms was May 05, 2021. 19:58 Method Of Arrival: Ambulatory kg 19:58 Acuity: JOE 4 kg Triage Assessment: 20:01 General: Appears in no apparent distress. Behavior is calm, cooperative, appropriate kg for age, quiet. Pain: Complains of pain in left knee. 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 - Social history:: Smoking status: Patient denies any tobacco usage or history of. Screenin:50 Abuse screen: Denies threats or abuse. Denies injuries from another. Nutritional ld1 screening: No deficits noted. Tuberculosis screening: No symptoms or risk factors identified. Fall Risk None identified. Assessment: 21:50 General: Appears in no apparent distress. comfortable, Behavior is appropriate for age, ld1 anxious. Pain: Denies pain. Neuro: Level of Consciousness is awake, alert, obeys commands, Oriented to person, place, time, situation. Cardiovascular: Capillary refill < 3 seconds Patient's skin is warm and dry. Respiratory: Airway is patent Respiratory effort is even, unlabored, Respiratory pattern is regular, symmetrical. 21:50 GI: Abdomen is flat, non-distended, Bowel sounds present X 4 quads. Abd is soft Abdomen ld1 is tender to palpation X 4 quads. : No signs and/or symptoms were reported regarding the genitourinary system. EENT: No signs and/or symptoms were reported regarding the EENT system. Derm: No signs and/or symptoms reported regarding the dermatologic system. Musculoskeletal: No signs and/or symptoms reported regarding the musculoskeletal system. Vital Signs: 19:58 Weight 63.5 kg (R); Height 5 ft. 3 in. (160.02 cm) (R); Pain 1/10; kg 20:05 BP 106 / 71; Pulse 108; Resp 20; Temp 98.2(O); Pulse Ox 98% on R/A; Weight 63.5 kg (R); kg Height 5 ft. 3 in. (160.02 cm); Pain 1/10; 21:50 BP 110 / 75; Pulse 99; Resp 19; Pulse Ox 98% on R/A; ld1 20:05 Body Mass Index 24.80 (63.50 kg, 160.02 cm) kg ED Course: 19:35 Patient arrived in ED. cf2 20:01 Triage completed. kg 20:01 Arm band placed on left wrist. kg 21:50 Patient has correct armband on for positive identification. Bed in low position. Call ld1 light in reach. Pulse ox on. NIBP on. Warm blanket given. 21:50 No provider procedures requiring assistance completed. Patient did not have IV access ld1 during this emergency room visit. 22:12 Shy Rosas is Attending Physician. sp3 22:36 Brittney Alexandre, MANUELA is Primary Nurse. ld1 Administered Medications: No medications were administered Outcome: 22:21 Discharge ordered by . sp3 22:38 Discharged to home ambulatory. ld1 22:38 Condition: stable 22:38 Discharge instructions given to patient, Instructed on discharge instructions, follow up and referral plans. Demonstrated understanding of instructions, follow-up care. 22:38 Patient left the ED. ld1 Signatures: Guero Ceron cf2 Brittney Alexandre RN RN ld1 India Mauricio RN RN Shy Del Valle sp3 Corrections: (The following items were deleted from the chart) 22:37 21:50 BP 110 / 75; Pulse 99bpm; Resp 19bpm; Pulse Ox 98% RA; ld1 ld1
[2021-05-08 00:56] VITALS: TEMP 98.2; O2SAT 98
[2021-05-08 00:58] VITALS: BP 110/75
== END 2021-05-07 22:38 | disposition home or self-care (01) ==
LOC: ER 19:32
DX: F41.9 Anxiety disorder, unspecified (principal)
CPT/HCPCS: 99283

== ENCOUNTER 2022-02-26 19:44 | Emergency (ER) | payer SELFPAY ==
--- OUTSIDE RECORDS SUMMARY | 2022-02-26 19:47 | XMS REPORT | Continuity of Care Document ---
:1975 Author Organization [facility] t Address [address] [place] [address] [place] [id number] Care Team Providers Name Role Phone Unavailable Unavailable Unavailable Problems This patient has no known problems. Allergies, Adverse Reactions, Alerts This patient has no known allergies or adverse reactions. Medications This patient has no known medications. Procedures This patient has no known procedures. Results Test Description Test Time Test Comments Results Result Comments Source LIPID PANEL 2021-11-16 01:22:39 Test Item Value Reference Range Interpretation Comme nts CHOLESTEROL (test code = 2210) 226 MG/DL <200 H TRIGLYCERIDES (test code = 480 MG/DL <150 H 2231) HDL CHOLESTEROL (test code = 41 MG/DL >39 2219) CALC LDL CHOL (test code = (NOTE) MG/DL <100 U NABLE TO CALCULATE A VALID LDL 2236) CHOLESTEROL WHE N THE TRIGLYCERIDEVAL UE IS GREATER THAN 400 MG/DL. NOTE : CALCULATED LDL IS BASED ON PATRICK -ROBB METHOD WHICHINCLUDES A DJUSTABLE TRIGLYCERIDE:VL DL CHOLESTEROL RATIO.THIS FACT OR VARIES BY MEASURED TRIGLY CERIDE AND NON-HDLCHOLESTE ROL CONCENTRATIONS WITH INCREASED CALCULATED LDL SEENIN HIGHER T RIGLYCERIDE OR LOWER NON-HDL S PECIMENS. FOR MOREINFORMATION , SEE CLIENT ANNOUNCEMENT AT [email or web address] RISK RATIO LDL/HDL (test code 3.07 RATIO <3.22 UNABLE TO = 2238) CALCULATE COMPREHENSIVE METABOLIC [id number] 01:22:39 Test Item Value Reference Range Interpretation Comments GLUCOSE (test code = 107 MG/DL 70-99 H 2216) BUN (test code = 15 MG/DL 6-20 2207) CREATININE (test 0.58 MG/DL 0.60-1.30 L code = 2214) eGFR (2020 CKD-EPI) 112 >60 (test code = 43524) ML/MIN/1.73 CALC BUN/CREAT (test 26 RATIO 6-28 code = 2235) SODIUM (test code = 137 MEQ/L 272-239 1830) POTASSIUM (test code 4.6 MEQ/L 3.5-5.4 = 2228) CHLORIDE (test code 100 MEQ/L 95-107 = 2215) CARBON DIOXIDE (test 18 MEQ/L 19-31 L code = 2206) CALCIUM (test code = 8.9 MG/DL 8.5-10.5 2208) PROTEIN, TOTAL (test 7.2 G/DL 6.1-8.3 code = 222) ALBUMIN (test code = 4.3 G/DL 3.5-5.2 2200) CALC GLOBULIN (test 2.9 G/DL 1.9-3.7 code = 2240) CALC A/G RATIO (test 1.5 RATIO 1.0-2.6 code = 2234) BILIRUBIN, TOTAL <0.2 MG/DL See_Comment [Automated message] (test code = 2207) The [employer] which generated this result transmitted ref erence range: <=1.2. T he reference range was not used to int erpret this result as normal/abnormal . ALKALINE PHOSPHATASE 59 U/L 40-123 (test code = 220) AST (test code = 20 U/L 9-40 2217) ALT (test code = 16 U/L 5-40 UNLE SS 2218) OTHERWISE INDIC ATED, ALL TESTING PER [facility], I [address] [place] [address] LABORATORY DIRE CTOR: STEPHON GOMEZ M.D. CLIA NUMBER [id number] CAP ACCREDITATION N O. [id number] TSH, THIRD [id number] 01:03:53 Test Item Value Reference Range Interpretation Comments TSH, THIRD GENERATION (test code 3.030 UIU/ML 0.400-4.100 = 2821) HEMOGLOBIN [id number] 05:54:09 Test Item Value Reference Range Interpretation Comments HEMOGLOBIN A1c (test code = 31947) 5.5 % 4.2-5.6 CBC W/AUTO DIFF WITH [id number] 04:21:47 Test Item Value Reference Range Interpretation Comments WBC (test code = 7.6 K/UL 3.5-11.0 1001) RBC (test code = 4.41 M/UL 3.80-5.40 1002) HEMOGLOBIN (test code 12.5 G/DL 11.5-15.5 = 1003) HEMATOCRIT (test code 37.7 % 34.0-45.0 = 1004) MCV (test code = 85.5 fL 80.0-99.0 1005) MCH (test code = 28.3 PG 25.0-33.0 1006) MCHC (test code = 33.2 G/DL 31.0-36.0 1007) RDW (test code = 14.9 % 11.5-15.0 1038) NEUTROPHILS (test 60.6 % code = 1008) LYMPHOCYTES (test 27.9 % code = 1010) MONOCYTES (test code 7.4 % = 1011) EOSINOPHILS (test 3.0 % code = 1012) BASOPHILS (test code 0.7 % = 1013) IMMATURE GRANULOCYTES 0.4 % (test code = 1036) NUCLEATED RBCS (test 0.0 /100 See_Comment [Autom ated code = 1065) WBC'S message] The sy stem which generated this result transmitted reference range : 0.0. The refere nce range was not u sed to interpret th is result as normal/abnormal . PLATELET COUNT (test 367 K/UL 130-400 code = 1015) ABSOLUTE NEUTROPHILS 4.58 K/UL 1.50-7.50 (test code = 1066) ABSOLUTE LYMPHOCYTES 2.11 K/UL 1.00-4.00 (test code = 1067) ABSOLUTE MONOCYTES 0.56 K/UL 0.20-1.00 (test code = 1068) ABSOLUTE EOSINOPHILS 0.23 K/UL 0.00-0.50 (test code = 1040) ABSOLUTE BASOPHILS 0.05 K/UL 0.00-0.20 (test code = 1069) ABS IMMATURE 0.03 K/UL 0.00-0.10 GRANULOCYTES (test code = 1020) ABS NUCLEATED RBCS 0.00 K/UL 0.00-0.11 (test code = 65815) SCR MAMM BILATERAL MARICARMEN CAD [id number] 09:50:45 Name: Mercedes : 1975 Sex: F - SCR MAMM BILATERAL MARICARMEN CAD DIGITALBILATERAL DIGITAL SCREENING MAMMOGRAM 3D/2D WITH CAD: 01/16/2021LINICAL: Asymptomatic. Digital breast tomosynthesis was performed in addition to routine CC and MLO views. Current mammographic images were evaluated by [employer] CAD (computed aided detection) software. Com parison is made to exam dated 12/09/2014 mammogram - [facility]. The tissue of both breasts is extremely dense, which lowers the sensitivity of mammography. There are nodular densities bilaterally that most likely represent benign fibroadenomas, cysts, or nodular breast tissue, however this must be confirmed with ultrasound. No suspicious mass, architectural distortion, malignant type calcification, or lymph node abnormality detected. IMPRESSION: INCOMPLETE: ADDITIONAL IMAGING EVALUATION NEEDEDBilateral ultrasound recommended. Chelsea castro/penrad:01/21/2021 09:50:45 Ammonia Solution Preparer: Brittney Cardozo MM, [facility] sent: Additional Imaging Mammogram BI-RADS: 0 Incomplete: Additional Imaging Evaluation Needed
[2022-02-26] MEDS ORDERED: METHYLPREDNISOLONE 125 MG INJ ONE (20:21)
[2022-02-26] MEDS ORDERED: FAMOTIDINE 20 MG TAB ONE (20:22)
[2022-02-26] MEDS ORDERED: NA CHLORIDE 0.9% 1,000 ML ONE (20:22)
[2022-02-26] MEDS ORDERED: DIPHENHYDRAMINE 50 MG/ML VIAL ONE (20:22)
[2022-02-26 20:32] LABS: Absolute Lymphocytes (CBC) 2.2 K/uL (0.7-4.9); Hematocrit 37.9 % (36.0-45.0); Lymphocytes % 32.7 % (15.3-44.8); MPV 7.5 fL (7.6-11.3); RBC Red Blood Cell Count 4.44 M/uL (3.86-4.86)
[2022-02-26 21:01] LABS: AST/SGOT 22 U/L (15-37); Albumin 3.6 g/dL (3.4-5.0); Alkaline Phosphatase 62 U/L (45-117); BUN Blood Urea Nitrogen 16 mg/dL (7-18); Bicarbonate 29 mmol/L (21-32); Bilirubin Total 0.1 mg/dL (0.2-1.0); Glomerular Filtration Rate 107 ml/min (=/>90); Glucose Level 99 mg/dL (74-106); Potassium 3.6 mmol/L (3.5-5.1); Protein, Total 7.3 g/dL (6.4-8.2); Sodium Level 138 mmol/L (136-145)
--- NOTE | 2022-02-26 21:38 | RAD REPORT ---
EXAM DESCRIPTION: CT - Soft Tissue Neck W/Contr - 02/26/2022 9:25 pm CLINICAL HISTORY: possible fb COMPARISON: No comparisons TECHNIQUE: During dynamic enhancement using 100 milliliters nonionic IV contrast, axial 5 millimeter thick images of the neck were obtained. All CT scans are performed using dose optimization technique as appropriate and may include automated exposure control or mA/KV adjustment according to patient size. FINDINGS: Intracranial portion the examination is unremarkable. No globe or orbital content abnormal ity. Mastoid air cells and paranasal sinuses are clear. There is significant left deviation of the na michell septum. No pharyngeal mucosal mass or asymmetry. Tonsillar and tongue base tissues are unremarkable. Epiglott is is normal. No laryngeal abnormality seen. No vascular abnormality seen. No mass or lymphadenopathy in the soft tissues. A few nonspecific bilat eral cervical lymph nodes are present. Cervical esophagus shows no retained food or foreign body within the lumen. No wall thickening or brandee ma. IMPRESSION: Unremarkable contrast soft tissue neck examination. No retained food, foreign body or other abnormality of the cervical esophagus.
--- NOTE | 2022-02-26 21:54 | ER ---
Nurse's Notes [facility] Name: Mayra Gallo Age: 46 yrs Sex: Female : 1975 Arrival Date: 02/26/2022 Time: 19:47 Bed 6 Private MD: Diagnosis: Allergic Reaction Presentation: 02/26 19:51 Chief complaint: Patient states: I ate tunafish sandwich - I think it is lodged in my ld1 throat. Pt c/o difficulty speaking/ throat pain. SpO2 98% RA. Coronavirus screen: At this time, the client does not indicate any symptoms associated with coronavirus-19. Ebola Screen: No symptoms or risks identified at this time. Initial Sepsis Screen: Does the patient meet any 2 criteria? No. Patient's initial sepsis screen is negative. Does the patient have a suspected source of infection? No. Patient's initial sepsis screen is negative. Risk Assessment: Do you want to hurt yourself or someone else? Patient reports no desire to harm self or others. Onset of symptoms was February 26, 2022. 19:51 Method Of Arrival: Ambulatory ld1 19:51 Acuity: JOE 2 ld1 Triage Assessment: 19:51 General: Appears in no apparent distress. uncomfortable, Behavior is calm, cooperative, ld1 appropriate for age. Pain: Complains of pain in uvula, left aspect of posterior pharynx, right aspect of posterior pharynx and tongue Pain does not radiate. Pain currently is 8 out of 10 on a pain scale. EENT: Reports Something lodged in throat. Painful. Neuro: Level of Consciousness is awake, alert, obeys commands, Oriented to person, place, time, situation. Cardiovascular: Capillary refill < 3 seconds Patient's skin is warm and dry. Respiratory: Airway obstructed, Respiratory effort is even, unlabored. GI: No signs and/or symptoms were reported involving the gastrointestinal system. : No signs and/or symptoms were reported regarding the genitourinary system. Derm: No signs and/or symptoms reported regarding the dermatologic system. Musculoskeletal: No signs and/or symptoms reported regarding the musculoskeletal system. 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 - Social history:: Smoking status: Patient denies any tobacco usage or history of. Patient/guardian denies using alcohol. Screenin:09 Abuse screen: Denies threats or abuse. Denies injuries from another. Nutritional sm5 screening: No deficits noted. Tuberculosis screening: No symptoms or risk factors identified. Fall Risk None identified. 20:33 The patient has not been NPO before screening. The patient is alert, able to follow sm5 commands. The patient does not exhibit slurred or garbled speech The patient is not exhibiting difficulty speaking. The patient does not exhibit difficulty understanding words. The patient is able to swallow own secretions with no drooling or need for suction. Patient tolerated one teaspoon of water. No drooling, immediate coughing, gurgling, or clearing of the throat was noted. The patient tolerated 90mL of water. No drooling, immediate coughing, gurgling, or clearing of the throat was noted. The patient passed the bedside swallow screening. Oral medications may be given as ordered. Contact Physician for further diet orders. Assessment: 20:32 General: Appears in no apparent distress. Behavior is cooperative. Neuro: No deficits sm5 noted. Solomon Agitation-Sedation Scale (RASS): 0 - Alert and Calm Level of Consciousness is awake, alert, obeys commands, Oriented to person, place, time, situation. Cardiovascular: No deficits noted. Capillary refill < 3 seconds Patient's skin is warm and dry. Respiratory: Reports throat swelling, feels like something is stuck Airway is patent Trachea midline Respiratory effort is even, unlabored. Vital Signs: 19:51 BP 135 / 76; Pulse 98; Resp 18; Temp 98.6(TE); Pulse Ox 98% on R/A; Weight 68.49 kg; ld1 Height 5 ft. 6 in. (167.64 cm); Pain 8/10; 22:04 Pulse 83; Resp 17; Pulse Ox 97% ; kd3 19:51 Body Mass Index 24.37 (68.49 kg, 167.64 cm) ld1 NIH Stroke Scale Scores: 19:55 NIHSS Score: 0 [facility] ED Course: 19:47 Patient arrived in ED. jj6 19:51 Arm band placed on right wrist. ld1 19:53 Triage completed. ld1 19:59 [facility] jh7 19:59 Clay Jose MD is Attending Physician. jh7 20:05 Nena Han, MANUELA is Primary Nurse. sm5 20:08 Inserted saline lock: 20 gauge in right antecubital area, using aseptic technique. sm5 Blood collected. 21:27 CT Soft Tissue Neck W/contr In Process Unspecified. EDMS 22:04 Patient has correct armband on for positive identification. kd3 22:04 No provider procedures requiring assistance completed. IV discontinued, intact, kd3 bleeding controlled, No redness/swelling at site. Pressure dressing applied. Administered Medications: 20:20 Drug: NS 0.9% 1000 ml Route: IV; Rate: 1 bolus; Site: right antecubital; sm5 21:00 Follow up: IV Status: Completed infusion; IV Intake: 1000ml sm5 20:20 Drug: Pepcid (famotidine) 20 mg Route: PO; sm5 21:31 Follow up: Response: No adverse reaction sm5 20:32 Drug: SOLU-Medrol (methylPrednisoLONE) 125 mg Route: IVP; Site: right antecubital; sm5 21:31 Follow up: Response: No adverse reaction sm5 20:32 Drug: diphenhydrAMINE 25 mg Route: IVP; Site: right antecubital; sm5 21:31 Follow up: Response: No adverse reaction sm5 Medication: 22:04 VIS not applicable for this client. kd3 Intake: 21:00 IV: 1000ml; Total: 1000ml. 5 Outcome: 21:53 Discharge ordered by . 7 22:04 Discharged to home ambulatory, with family. kd3 22:04 Condition: stable 22:04 Condition: stable 22:04 Discharge instructions given to patient, Instructed on discharge instructions, follow up and referral plans. Demonstrated understanding of instructions, follow-up care. 22:05 Patient left the ED. kd3 NIH Stroke Scale - NIH Stroke Score Date: 02/26/2022 Time: 19:55 Total Score = 0 1a. Level of Consciousness (LOC) - 0(Alert) 1b. Level of Consciousness (LOC) (Month \T\ Age) - 0(Both) 1c. LOC Commands (Open \T\ Closes Eyes/Envelope Machine Operator) - 0(Both) 2. Best Gaze (Lateral Gaze Paresis) - 0(Normal) 3. Visual Field Loss - 0(No visual loss) 4. Facial Palsy - 0(Normal) 5a. Left Arm: Motor (10-second hold) - 0(No drift) 5b. Right Arm: Motor (10-second hold) - 0(No drift) 6a. Left Leg: Motor (5-second hold - always test supine) - 0(No drift) 6b. Right Leg: Motor (5-second hold - always test supine) - 0(No drift) 7. Limb Ataxia (finger/nose \T\ heel/fritz - test with eyes open) - 0(Absent) 8. Sensory Loss (pinprick arms/legs/face) - 0(Normal) 9. Best Language: Aphasia (description/naming/reading) - 0(No aphasia) 10. Dysarthria (speech clarity - read or repeat words) - 0(Normal) 11. Extinction and Inattention (visual/tactile/auditory/spatial/personal) - 0(No abnormality) Initials: jh7 Signatures: Dispatcher [employer] EDIL Brittney Alexandre RN RN ld1 Brooke Garcia jj6 Dipika Rueda RN RN kd3 Nena Han RN RN sm5 Brooke Barnett, PAL PERSONNEL WORKER 7
--- NOTE | 2022-02-26 21:54 | EDPHYS ---
Physician Documentation [facility] Name: Mayra Gallo Age: 46 yrs Sex: Female : 1975 Arrival Date: 02/26/2022 Time: 19:47 Bed 6 Private MD: ED Physician Clay Jose HPI: 02/26 19:55 This 46 yrs old Female presents to ER via Ambulatory with complaints of jh7 Patient is having difficulty speaking, sore throat, and facial rash. Patient states it feels like there is a foreign body lodged in throat, Also c/o tingling to her lips. 19:55 Onset: The symptoms/episode began/occurred acutely. Patient states she was eating jh7 chicken and rice and suddenly felt like her throat was closing and that something was caught in her throat. Also complains of tingling to her lips and facial itching. Denies difficulty with speech, weakness, facial droop, or any other symptoms at this time.. 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 - Social history:: Smoking status: Patient denies any tobacco usage or history of. Patient/guardian denies using alcohol. ROS: 19:55 ENT: Positive for foreign body sensation, sore throat. jh7 19:55 Constitutional: Negative for fever, chills, and weight loss, Eyes: Negative for injury, jh7 pain, redness, and discharge, Cardiovascular: Negative for chest pain, palpitations, and edema, Respiratory: Negative for shortness of breath, cough, wheezing, and pleuritic chest pain, Abdomen/GI: Negative for abdominal pain, nausea, vomiting, diarrhea, and constipation, MS/Extremity: Negative for injury and deformity, Skin: Negative for injury, rash, and discoloration. 19:55 Neuro: Positive for tingling, Negative for altered mental status, dizziness, headache, loss of consciousness, numbness, speech changes, syncope, visual changes, weakness. 19:55 All other systems are negative. Exam: 19:55 Constitutional: This is a well developed, well nourished patient who is awake, alert, jh7 and in no acute distress. Cardiovascular: Regular rate and rhythm with a normal S1 and S2. No gallops, murmurs, or rubs. Normal PMI, no JVD. No pulse deficits. Respiratory: Lungs have equal breath sounds bilaterally, clear to auscultation and percussion. No rales, rhonchi or wheezes noted. No increased work of breathing, no retractions or nasal flaring. 19:55 Neck: Trachea midline, no thyromegaly or masses palpated, and no cervical lymphadenopathy. Supple, full range of motion without nuchal rigidity, or vertebral point tenderness. No Meningismus. Chest/axilla: Normal chest wall appearance and motion. Nontender with no deformity. No lesions are appreciated. Abdomen/GI: Soft, non-tender, with normal bowel sounds. No distension or tympany. No guarding or rebound. No evidence of tenderness throughout. Back: No spinal tenderness. No costovertebral tenderness. Full range of motion. Skin: Warm, dry with normal turgor. Normal color with no rashes, no lesions, and no evidence of cellulitis. MS/ Extremity: Pulses equal, no cyanosis. Neurovascular intact. Full, normal range of motion. Neuro: Awake and alert, GCS 15, oriented to person, place, time, and situation. Cranial nerves II-XII grossly intact. Motor strength 5/5 in all extremities. Sensory grossly intact. Cerebellar exam normal. Normal gait. 19:55 ENT: Posterior pharynx: is normal, airway is patent, no acute changes. 19:55 ENT: FB sensation in the back of throat. Reports that it "feels swollen and that food may be stuck".. 19:55 Skin: Appearance: flushing, that are mild. Vital Signs: 19:51 BP 135 / 76; Pulse 98; Resp 18; Temp 98.6(TE); Pulse Ox 98% on R/A; Weight 68.49 kg; ld1 Height 5 ft. 6 in. (167.64 cm); Pain 8/10; 22:04 Pulse 83; Resp 17; Pulse Ox 97% ; kd3 19:51 Body Mass Index 24.37 (68.49 kg, 167.64 cm) ld1 NIH Stroke Scale Scores: 19:55 NIHSS Score: 0 [facility] MDM: 19:59 Patient medically screened. [facility] 21:00 Differential diagnosis: Allergic reaction. [facility] 21:00 Data reviewed: vital signs, nurses notes, lab test result(s), radiologic studies, CT [facility] scan. Data interpreted: Pulse oximetry: is 97 %. Interpretation: normal. Counseling: I had a detailed discussion with the patient and/or guardian regarding: the historical points, exam findings, and any diagnostic results supporting the discharge/admit diagnosis, to return to the emergency department if symptoms worsen or persist or if there are any questions or concerns that arise at home. Response to treatment: the patient's symptoms have resolved after treatment, Patient reports symptoms have resolved. ED course: The patient stated that her symptoms resolved after medication administration. Informed her that her CT scan and lab work were normal. Advised her to return to the ER if her symptoms return, or she develops any new concerning symptoms.. 02/26 20:04 Order name: CBC with Diff; Complete Time: 20:53 [facility] 02/26 20:04 Order name: CMP [facility] 02/26 20:24 Order name: CT Soft Tissue Neck W/contr; Complete Time: 22:46 [facility] 02/26 20:04 Order name: Swallow Screen; Complete Time: 20:32 [facility] Administered Medications: 20:20 Drug: NS 0.9% 1000 ml Route: IV; Rate: 1 bolus; Site: right antecubital; sm5 21:00 Follow up: IV Status: Completed infusion; IV Intake: 1000ml 5 20:20 Drug: Pepcid (famotidine) 20 mg Route: PO; sm5 21:31 Follow up: Response: No adverse reaction sm5 20:32 Drug: SOLU-Medrol (methylPrednisoLONE) 125 mg Route: IVP; Site: right antecubital; sm5 21:31 Follow up: Response: No adverse reaction sm5 20:32 Drug: diphenhydrAMINE 25 mg Route: IVP; Site: right antecubital; sm5 21:31 Follow up: Response: No adverse reaction 5 Disposition: 02/27 04:58 Co-signature as Attending Physician, Brooke GARCIA [facility] Disposition Summary: 02/26/22 21:53 Discharge Ordered Location: Home [facility] Problem: new [facility] Symptoms: have improved [facility] Condition: Stable [facility] Diagnosis - Allergic Reaction [facility] Followup: [facility] - With: Private Physician - When: 1 - 2 days - Reason: Recheck today's complaints Discharge Instructions: - Discharge Summary Sheet [facility] - Anaphylactic Reaction, Adult [facility] Forms: - Medication Reconciliation Form [facility] - Thank You Letter [facility] NIH Stroke Scale - NIH Stroke Score Date: 02/26/2022 Time: 19:55 Total Score = 0 1a. Level of Consciousness (LOC) - 0(Alert) 1b. Level of Consciousness (LOC) (Month \\T\\ Age) - 0(Both) 1c. LOC Commands (Open \\T\\ Closes Eyes/Medieval English Literature Professor) - 0(Both) 2. Best Gaze (Lateral Gaze Paresis) - 0(Normal) 3. Visual Field Loss - 0(No visual loss) 4. Facial Palsy - 0(Normal) 5a. Left Arm: Motor (10-second hold) - 0(No drift) 5b. Right Arm: Motor (10-second hold) - 0(No drift) 6a. Left Leg: Motor (5-second hold - always test supine) - 0(No drift) 6b. Right Leg: Motor (5-second hold - always test supine) - 0(No drift) 7. Limb Ataxia (finger/nose \\T\\ heel/fritz - test with eyes open) - 0(Absent) 8. Sensory Loss (pinprick arms/legs/face) - 0(Normal) 9. Best Language: Aphasia (description/naming/reading) - 0(No aphasia) 10. Dysarthria (speech clarity - read or repeat words) - 0(Normal) 11. Extinction and Inattention (visual/tactile/auditory/spatial/personal) - 0(No abnormality) Initials: [facility] Signatures: Dispatcher [employer] EDClay Vargas MD MD 7 Brittney Alexandre RN RN ld1 Nena Han RN RN [id number] Brooke Barnett FNP FNP [facility] Corrections: (The following items were deleted from the chart) 02/26 22:34 19:55 Patient states she was eating chicken and rice and suddenly felt like her [facility] throat was closing and that something was caught in her throat. Also complains of numbness/tingling to her lips and facial itching. Denies difficulty with speech, weakness, facial droop, or any other symptoms at this time.. jh7 22:34 19:55 This 46 yrs old Female presents to ER via Ambulatory with jh7 complaints of Patient is having difficulty speaking, sore throat, and facial rash. Patient states it feels like there is a foreign body lodged in throat, Also c/o numbness/tingling to her lips. jh7 :34 19:55 Neuro: Positive for karolyn7 jh7
[2022-02-26 22:36] VITALS: BP 135/76; TEMP 98.6
[2022-02-26 22:42] VITALS: O2SAT 97
[2022-02-26 23:08] LABS: ALT/SGPT ND U/L (12-78)
== END 2022-02-26 22:05 | disposition home or self-care (01) ==
LOC: ER 19:44
DX: T78.1XXA Other adverse food reactions, not elsewhere classified, initial encounter (principal)
CPT/HCPCS: 36415; 70491; 80053; 85025; 96361; 96374; 96375; 99284; J1200; J2930; J7030; Q9967

== ENCOUNTER 2022-02-27 15:36 | Emergency (ER) | payer SELFPAY ==
--- OUTSIDE RECORDS SUMMARY | 2022-02-27 15:39 | XMS REPORT | Continuity of Care Document ---
:1975 Author Organization [facility] t Address [address] [place] [address] [place] [id number] Care Team Providers Name Role Phone Unavailable [...] UNABLE TO = [phone]) CALCULATE COMPREHENSIVE METABOLIC [id number] 01:22:39 Test Item Value Reference Range Interpretation Comments GLUCOSE (test code = 107 MG/DL 70-99 H 2216) BUN (test code = 15 MG/DL 6-20 2207) CREATININE (test 0.58 MG/DL 0.60-1.30 L code = 2214) eGFR (2020 CKD-EPI) 112 >60 (test code = 15547) ML/MIN/1.73 CALC BUN/CREAT (test 26 RATIO 6-28 code = 2235) SODIUM (test code = 137 MEQ/L 630-103 7599) POTASSIUM (test code 4.6 MEQ/L 3.5-5.4 = [...] [Automated message] (test code = 2207) The [employer] which generated this result transmitted ref erence range: <=1.2. T he reference range was not used to int erpret this result as normal/abnormal . ALKALINE PHOSPHATASE 59 U/L 40-123 (test code = 220) AST (test code = 20 U/L 9-40 2217) ALT (test code = 16 U/L 5-40 UNLE SS 2218) OTHERWISE INDIC ATED, ALL TESTING PER [facility] [address] [place] [address] LABORATORY DIRE CTOR: STEHPON GOMEZ M.D. CLIA NUMBER [id number] CAP ACCREDITATION N O. [id number] TSH, THIRD [id number] 01:03:53 Test Item Value Reference Range Interpretation Comments TSH, THIRD GENERATION (test code 3.030 UIU/ML 0.400-4.100 = 2821) HEMOGLOBIN [id number] 05:54:09 Test Item Value Reference Range Interpretation Comments HEMOGLOBIN A1c (test code = 61957) 5.5 % 4.2-5.6 CBC W/AUTO DIFF WITH [id number] 04:21:47 Test Item Value Reference Range Interpretation [...] RBCS 0.00 K/UL 0.00-0.11 (test code = 18359) SCR MAMM BILATERAL MARICARMEN CAD [id number] 09:50:45 Name: Mercedes : 1975 Sex: F - SCR MAMM BILATERAL MARICARMEN CAD DIGITALBILATERAL DIGITAL SCREENING MAMMOGRAM 3D/2D WITH CAD: 01/16/2021LINICAL: Asymptomatic. Digital breast tomosynthesis was performed in addition to routine CC and MLO views. Current mammographic images were evaluated by ComplyMD CAD (computed aided detection) software. Com parison is made to exam dated 12/09/2014 mammogram - [facility]. The tissue of both breasts is extremely dense, which lowers the sensitivity of mammography. There are nodular densities bilaterally that most likely represent benign fibroadenomas, cysts, or nodular breast tissue, however this must be confirmed with ultrasound. No suspicious mass, architectural distortion, malignant type calcification, or lymph node abnormality detected. IMPRESSION: INCOMPLETE: ADDITIONAL IMAGING EVALUATION NEEDEDBilateral ultrasound recommended. Chelsea castro/penrad:01/21/2021 09:50:45 Boat Hand: Brittney Cardozo MM, [facility] sent: Additional Imaging Mammogram BI-RADS: 0 Incomplete: Additional Imaging Evaluation Needed
[2022-02-27] MEDS ORDERED: MORPHINE 2 MG/ML SYR ONE (16:16)
[2022-02-27] MEDS ORDERED: ONDANSETRON 4 MG/2 ML VIAL ONE (16:16)
[2022-02-27 16:32] LABS: Absolute Lymphocytes (CBC) 2.7 K/uL (0.7-4.9); Hematocrit 37.2 % (36.0-45.0); Lymphocytes % 21.7 % (15.3-44.8); MPV 7.3 fL (7.6-11.3); RBC Red Blood Cell Count 4.39 M/uL (3.86-4.86)
--- NOTE | 2022-02-27 16:48 | RAD REPORT ---
EXAM DESCRIPTION: CT - Head Brain Wo Cont - 02/27/2022 4:28 pm CLINICAL HISTORY: Headache, sudden, severe COMPARISON: CT January 2015 TECHNIQUE: Axial 5 mm thick images of the head were obtained without IV contrast. All CT scans are performed using dose optimization technique as appropriate and may include automated exposure control or mA/KV adjustment according to patient size. FINDINGS: No intracranial hemorrhage, mass, edema or shift of mid-line structures. No acute infarcti on changes seen. No abnormal extra-axial fluid collections. Ventricles are normal. Intracranial simil ar comparison. Mastoid air cells and visualized portions of the paranasal sinuses are clear. No acute bony findings. IMPRESSION: Negative non-contrast CT head examination for acute finding.
[2022-02-27 16:49] LABS: Potassium 2.9 mmol/L (3.5-5.1)
[2022-02-27] MEDS ORDERED: POTASSIUM 25 MEQ EFFERV TAB ONE (17:03)
[2022-02-27] MEDS ORDERED: NA CHLORIDE 0.9% 500 ML ONE (17:04)
[2022-02-27] MEDS ORDERED: KCL 20 MEQ/100 mL IVPB 100 ML IV ONE (17:04)
[2022-02-27 19:15] LABS: CSF Glucose 75 mg/dL (40-70)
--- NOTE | 2022-02-27 19:18 | RAD REPORT ---
EXAM DESCRIPTION: CT - Head angio - 02/27/2022 7:09 pm CLINICAL HISTORY: Headache, sudden, severe TECHNIQUE: During dynamic enhancement using nonionic IV contrast, axial 1 millimeter thick images of the head were obtained. Sagittal and axial reconstruction images were generated using MIP technique and reviewed. All CT scans are performed using dose optimization technique as appropriate and may include automated exposure control or mA/KV adjustment according to patient size. COMPARISON: CT head same date FINDINGS: No aneurysm or vascular malformation identified. Major venous sinuses are patent. No stenosis, named branch occlusion, vasculitis or other significant vascular finding identifiable. IMPRESSION: Negative CT angio head examination.
[2022-02-27 20:08] LABS: Appearance CLEAR (CLEAR); Body Fluid Source CSF; Color of fluid Colorless (COLORLESS); Fluid Total Volume 15.5 ml
[2022-02-27 20:09] LABS: Body Fluid WBC 0 /mm^3
[2022-02-27 20:10] LABS: Appearance CLEAR (CLEAR); Body Fluid Source CSF; Body Fluid WBC 0 /mm^3; Color of fluid Colorless (COLORLESS)
[2022-02-27] MEDS ORDERED: METOCLOPRAMIDE 10 MG/2mL INJ ONE (20:10)
[2022-02-27] MEDS ORDERED: NA CHLORIDE 0.9% 1,000 ML ONE (20:10)
[2022-02-27] MEDS ORDERED: DIPHENHYDRAMINE 50 MG/ML VIAL ONE (20:10)
[2022-02-27 20:16] LABS: Urine Blood Trace-intact (Negative); Urine Glucose Negative (Negative); Urine Protein Negative (Negative); Urine pH 8.5 (5.0-7.0)
--- NOTE | 2022-02-27 23:01 | EDPHYS ---
Physician Documentation [facility] Name: Mayra Gallo Age: 46 yrs Sex: Female : 1975 Arrival Date: 02/27/2022 Time: 15:38 Bed 8 Private MD: ED Physician Clay Jose HPI: 02/27 17:05 This 46 yrs old Female presents to ER via Ambulatory with complaints of kdr Headache, Nausea. 17:05 The patient complains of pain to the top of head and forehead. The patient describes kdr the headache as aching, a pressure. Onset: The symptoms/episode began/occurred acutely, just prior to arrival. Associated signs and symptoms: The patient has no apparent associated signs or symptoms. Severity of symptoms: At its worst the pain was mild, in the emergency department the pain is unchanged. Headache History: The patient has had previous headaches and this one is less severe than previous episodes. The symptoms are alleviated by nothing. the symptoms are aggravated by nothing. The patient has not experienced similar symptoms in the past, The patient has experienced similar episodes in the past, several times. Patient states that she had acute onset of a headache about 30 minutes prior to arrival. She states that about an hour and a half prior to that she had drank a cappuccino. She is feeling nauseated with the current headache. This is not the worst headache of her life. She has had some bleeding previously which was reportedly more severe than this current headache. Nonetheless she is concerned about possibly having a bleed. She appears mildly uncomfortable but otherwise not in significant acute distress. 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 - Social history:: Smoking status: Patient denies any tobacco usage or history of. ROS: 17:05 Constitutional: Negative for fever, chills, and weight loss, Eyes: Negative for injury, kdr pain, redness, and discharge, ENT: Negative for injury, pain, and discharge, Neck: Negative for injury, pain, and swelling, Cardiovascular: Negative for chest pain, palpitations, and edema, Respiratory: Negative for shortness of breath, cough, wheezing, and pleuritic chest pain, Abdomen/GI: Negative for abdominal pain, nausea, vomiting, diarrhea, and constipation, Back: Negative for injury and pain, : Negative for injury, bleeding, discharge, and swelling, MS/Extremity: Negative for injury and deformity, Skin: Negative for injury, rash, and discoloration, Psych: Negative for depression, anxiety, suicide ideation, homicidal ideation, and hallucinations, Allergy/Immunology: Negative for hives, rash, and allergies, Endocrine: Negative for neck swelling, polydipsia, polyuria, polyphagia, and marked weight changes, Hematologic/Lymphatic: Negative for swollen nodes, abnormal bleeding, and unusual bruising. 17:05 Neuro: Positive for headache, Negative for altered mental status, dizziness, gait disturbance, loss of consciousness, seizure activity, speech changes, syncope, tinnitus, tremor, visual changes, weakness, acute changes. Exam: 17:05 Constitutional: This is a well developed, well nourished patient who is awake, alert, kdr and in mild distress. Head/Face: Normocephalic, atraumatic. Eyes: Pupils equal round and reactive to light, extra-ocular motions intact. Lids and lashes normal. Conjunctiva and sclera are non-icteric and not injected. Cornea within normal limits. Periorbital areas with no swelling, redness, or edema. Neck: Trachea midline, no thyromegaly or masses palpated, and no cervical lymphadenopathy. Supple, full range of motion without nuchal rigidity, or vertebral point tenderness. No Meningismus. Chest/axilla: Normal chest wall appearance and motion. Nontender with no deformity. No lesions are appreciated. Cardiovascular: Regular rate and rhythm with a normal S1 and S2. No gallops, murmurs, or rubs. Normal PMI, no JVD. No pulse deficits. Respiratory: Lungs have equal breath sounds bilaterally, clear to auscultation and percussion. No rales, rhonchi or wheezes noted. No increased work of breathing, no retractions or nasal flaring. Abdomen/GI: Soft, non-tender, with normal bowel sounds. No distension or tympany. No guarding or rebound. No evidence of tenderness throughout. Back: No spinal tenderness. No costovertebral tenderness. Full range of motion. Skin: Warm, dry with normal turgor. Normal color with no rashes, no lesions, and no evidence of cellulitis. MS/ Extremity: Pulses equal, no cyanosis. Neurovascular intact. Full, normal range of motion. Neuro: Awake and alert, GCS 15, oriented to person, place, time, and situation. Cranial nerves II-XII grossly intact. Motor strength 5/5 in all extremities. Sensory grossly intact. Cerebellar exam normal. Normal gait. Psych: Awake, alert, with orientation to person, place and time. Behavior, mood, and affect are within normal limits. Vital Signs: 15:46 BP 137 / 65; Pulse 103; Resp 16; Temp 97.8(TE); Pulse Ox 100% on R/A; Weight 68.49 kg jb4 (R); Height 5 ft. 3 in. (160.02 cm) (R); Pain 5/10; 17:09 BP 95 / 72; Pulse 86; Resp 16; Pulse Ox 100% on R/A; iw 18:27 BP 98 / 76; Pulse 87; Resp 17 S; Pulse Ox 100% on R/A; jd3 19:45 BP 115 / 61; Pulse 74; Resp 19; Pulse Ox 97% on R/A; ll3 20:30 BP 97 / 63; Pulse 93; Resp 20; Pulse Ox 99% on R/A; ll3 21:50 BP 93 / 61; Pulse 92; Resp 18; Pulse Ox 100% on R/A; ll3 22:29 BP 101 / 70; Pulse 76; Resp 14; Pulse Ox 100% on R/A; ll3 15:46 Body Mass Index 26.75 (68.49 kg, 160.02 cm) jb4 Norma Coma Score: 22:53 Eye Response: spontaneous(4). Verbal Response: oriented(5). Motor Response: obeys mh7 commands(6). Total: 15. Procedures: 18:36 Lumbar Puncture: Patient placed in left lateral decubitus position. Prepped with kdr Betadine. Draped using sterile technique. Collected 160 ml's of clear fluid. Sample sent to lab. Puncture site dressed with band aid, Patient tolerated well. MDM: 17:05 Data reviewed: vital signs, nurses notes, lab test result(s), radiologic studies. kdr Counseling: I had a detailed discussion with the patient and/or guardian regarding: lab results, radiology results, the need for outpatient follow up. 22:53 Differential diagnosis: cluster headache, intracerebral hemorrhage, migraine, mh7 subarachnoid bleed, tension headache. Data interpreted: Pulse oximetry: on room air is 100 %. Interpretation: normal. Response to treatment: the patient's symptoms have resolved after treatment, the patient's blood pressure is in an acceptable range, mental status has returned to baseline, the patient no longer shows bradycardia, the patient is not short of breath, the patient is not tachycardic, the patient's pain is gone, the patient's temperature has normalized, the patient is now symptom free, patient is well hydrated. ED course: Feels better, well appearing, NAD, VSS, no focal neurological deficits. No headache, nausea, vomiting, or other complaints. Tolerating PO intake and ambulating without difficulty. Discussed test results and findings and offered admission for observation and further evaluation. Patient declined and requested to be discharged home. She will follow up with her doctor. Advised to return to the ER if return of symptoms.. 23:00 Patient medically screened. mh7 02/27 16:08 Order name: CBC with Diff; Complete Time: 16:55 [facility] 02/27 16:08 Order name: Chem 7; Complete Time: 16:55 [facility] 02/27 18:35 Order name: Csf Culture; Complete Time: 08:08 [facility] 02/27 18:35 Order name: Spinal Fluid Profile; Complete Time: 22:15 [facility] 02/27 16:07 Order name: CT Head Brain wo Cont; Complete Time: 16:55 [facility] 02/27 18:35 Order name: CT Head Angio; Complete Time: 19:43 [facility] 02/27 18:36 Order name: Fluid Cell Count,Body; Complete Time: 22:15 eb 02/27 20:16 Order name: Urine Dipstick-Ancillary; Complete Time: 20:18 EDMS 02/27 20:16 Order name: Urine --Ancillary (enter results); Complete Time: 20:34 2 02/27 18:35 Order name: LP Consents; Complete Time: 18:39 [facility] 02/27 18:35 Order name: LP Setup; Complete Time: 18:39 [facility] 02/27 20:00 Order name: Urine Dipstick-Ancillary (obtain specimen); Complete Time: 20:16 [facility] 02/27 20:00 Order name: Urine Test (obtain specimen); Complete Time: 20:16 7 Administered Medications: 16:20 Drug: morphine 2 mg Route: IVP; Infused Over: 4 mins; Site: left antecubital; jd3 17:00 Follow up: Response: No adverse reaction; RASS: Alert and Calm (0) jd3 16:20 Drug: Zofran (Ondansetron) 2 mg Route: IVP; Site: left antecubital; jd3 17:00 Follow up: Response: No adverse reaction jd3 17:09 Drug: Potassium Chloride 20 mEq Route: IV; Rate: calculated rate; Site: left iw antecubital; 17:09 Drug: Potassium Effervescent Tablet 50 mEq Route: PO; iw 18:00 Follow up: Response: No adverse reaction jd3 20:10 Drug: Reglan (metoCLOPramide) 10 mg Route: IVP; Site: left antecubital; sm5 20:10 Drug: Benadryl (diphenhydrAMINE) 50 mg Route: IVP; Site: left antecubital; sm5 20:10 Drug: NS 0.9% 1000 ml Route: IV; Rate: 1000 ml; Site: left antecubital; sm5 Disposition Summary: 02/27/22 23:00 Discharge Ordered Location: Home [facility] Problem: an acute exacerbation 7 Symptoms: have improved 7 Condition: Stable 7 Diagnosis - Headache 7 Followup: 7 - With: Private Physician - When: 1 - 2 days - Reason: Worsening of condition, Recheck today's complaints, Continuance of care, Re-evaluation by your physician Followup: [facility] - With: Shukri Soares MD - When: 1 - 2 days - Reason: Worsening of condition, Recheck today's complaints Discharge Instructions: - Discharge Summary Sheet 7 - General Headache Without Cause [facility] Forms: - Medication Reconciliation Form [facility] - Thank You Letter 7 - Antibiotic Education 7 - Prescription Opioid Use [facility] Signatures: Dispatcher [employer] EDMS Steve Cole MD MD kdr Williams, Irene, RN RN iw Adam Hinson RN RN jb4 Elton Patel RN RN jClay Benites MD MD 7 Emely, Nena, RN RN sm5 Corrections: (The following items were deleted from the chart) 19: 18:36 FLUID CELL COUNT,BODY+H.LAB.BRZ ordered. EDMS EDMS : 18:36 CSF Culture+BA.LAB.BRZ ordered. EDMS EDMS : 18:36 SPINAL FLUID PROFILE+LAB.LAB.BRZ ordered. EDMS EDMS
--- NOTE | 2022-02-27 23:01 | ER ---
Nurse's Notes [facility] Name: Mayra Gallo Age: 46 yrs Sex: Female : 1975 Arrival Date: 02/27/2022 Time: 15:38 Bed 8 Private MD: Diagnosis: Headache Presentation: 02/27 15:46 Chief complaint: Patient states: I have a headache that started 20 minutes ago. I have jb4 had a headache like this before. It started about an hour and 30 minutes after drinking a capuccino. Its making me feel nauseous. Coronavirus screen: At this time, the client does not indicate any symptoms associated with coronavirus-19. Ebola Screen: No symptoms or risks identified at this time. Initial Sepsis Screen: Does the patient meet any 2 criteria? HR > 90 bpm. Yes Does the patient have a suspected source of infection? No. Patient's initial sepsis screen is negative. Risk Assessment: Do you want to hurt yourself or someone else? Patient reports no desire to harm self or others. Onset of symptoms was February 27, 2022. Transition of care: patient was not received from another setting of care. 15:46 Method Of Arrival: Ambulatory [facility] 15:46 Acuity: JOE 3 jb4 Triage Assessment: 15:48 Headache History: The patient has had previous headaches and this one is similar to jb4 previous episodes. General: Appears in no apparent distress. comfortable, Behavior is calm, cooperative. Pain: Pain currently is 5 out of 10 on a pain scale. Pain began 30 min ago. Also complains of nausea. Neuro: Solomon Agitation-Sedation Scale (RASS): 0 - Alert and Calm Level of Consciousness is awake, alert, obeys commands, Oriented to person, place, time, situation. 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 - Social history:: Smoking status: Patient denies any tobacco usage or history of. Screenin:53 Abuse screen: Denies threats or abuse. Nutritional screening: No deficits noted. jd3 Tuberculosis screening: No symptoms or risk factors identified. Fall Risk Ambulatory Aid- None/Bed Rest/Nurse Assist (0 pts). Gait- Normal/Bed Rest/Wheelchair (0 pts) Mental Status- Oriented to own ability (0 pts). Total Veliz Fall Scale indicates No Risk (0-24 pts). Assessment: 16:00 General: Appears in no apparent distress. comfortable, Behavior is calm, cooperative, jd3 appropriate for age, Reports "I am having a funny feeling in my head. and all over my body. and I am nauseous, and my head hurts.". Pain: Complains of pain in head Quality of pain is described as aching, pressure. Neuro: Solomon Agitation-Sedation Scale (RASS): +1 Restless Level of Consciousness is awake, alert, obeys commands, Oriented to person, place, time, situation, Moves all extremities. Full function Speech is normal, Facial symmetry appears normal, Pupils are PERRLA, Reports headache. Cardiovascular: Denies chest pain, Capillary refill < 3 seconds Patient's skin is warm and dry. Respiratory: Airway is patent Respiratory effort is even, unlabored, Respiratory pattern is regular, symmetrical, Denies cough, shortness of breath. GI: Abdomen is non-distended, Reports nausea. : No signs and/or symptoms were reported regarding the genitourinary system. EENT: No signs and/or symptoms were reported regarding the EENT system. Derm: Skin is intact, Skin is dry, Skin is normal, Skin temperature is warm. Musculoskeletal: Circulation, motion, and sensation intact. Range of motion: intact in all extremities. 18:08 Reassessment: pt set up for LP, consent form signed. 18:27 Reassessment: Patient appears in no apparent distress at this time. Patient and/or jd3 family updated on plan of care and expected duration. Pain level reassessed. Patient is alert, oriented x 3, equal unlabored respirations, skin warm/dry/pink. provider at bedside preforming LP. 18:37 Reassessment: LP complete, pt tolerated procedure well, CSF collected, walked to Lab by field technician , pt educated on need to lie in supine position. 21:50 Reassessment: Patient and/or family updated on plan of care and expected duration. Pain ll3 level reassessed. Patient is alert, oriented x 3, equal unlabored respirations, skin warm/dry/pink. 22:30 Reassessment: Patient and/or family updated on plan of care and expected duration. Pain ll3 level reassessed. Patient is alert, oriented x 3, equal unlabored respirations, skin warm/dry/pink. Patient states feeling better. 23:18 Reassessment: No changes from previously documented assessment. Patient and/or family sm5 updated on plan of care and expected duration. Pain level reassessed. Vital Signs: 15:46 BP 137 / 65; Pulse 103; Resp 16; Temp 97.8(TE); Pulse Ox 100% on R/A; Weight 68.49 kg jb4 (R); Height 5 ft. 3 in. (160.02 cm) (R); Pain 5/10; 17:09 BP 95 / 72; Pulse 86; Resp 16; Pulse Ox 100% on R/A; iw 18:27 BP 98 / 76; Pulse 87; Resp 17 S; Pulse Ox 100% on R/A; jd3 19:45 BP 115 / 61; Pulse 74; Resp 19; Pulse Ox 97% on R/A; ll3 20:30 BP 97 / 63; Pulse 93; Resp 20; Pulse Ox 99% on R/A; ll3 21:50 BP 93 / 61; Pulse 92; Resp 18; Pulse Ox 100% on R/A; ll3 22:29 BP 101 / 70; Pulse 76; Resp 14; Pulse Ox 100% on R/A; ll3 15:46 Body Mass Index 26.75 (68.49 kg, 160.02 cm) jb4 Norma Coma Score: 22:53 Eye Response: spontaneous(4). Verbal Response: oriented(5). Motor Response: obeys mh7 commands(6). Total: 15. ED Course: 15:38 Patient arrived in ED. jj6 15:48 Triage completed. jb4 15:52 Elton Patel RN is Primary Nurse. jd3 15:52 Arm band placed on. jd3 15:53 Steve Cole MD is Attending Physician. kdr 15:53 Patient has correct armband on for positive identification. Bed in low position. Call jd3 light in reach. Side rails up X 1. Pulse ox on. NIBP on. 16:20 Inserted saline lock: 22 gauge in left antecubital area, using aseptic technique. Blood jd3 collected. 16:30 CT Head Brain wo Cont In Process Unspecified. EDMS 18:07 Consent for a lumbar puncture explained by staff, explained by physician, signed by patient. 18:28 Assist provider with lumbar puncture: Set up LP tray. Performed by Steve Cole MD CSF jd3 is clear. Puncture site dressed with band aid, Procedure was successful. Patient tolerated well. 19:05 Attending Physician role handed off by Steve Cole MD [facility] 19:05 Clay Jose MD is Attending Physician. 7 19:11 CT Head Angio In Process Unspecified. EDMS 19:18 Primary Nurse role handed off by Elton Patel RN 19:18 Nena Han, MANUELA is Primary Nurse. sm5 23:00 Shukri Soares MD is Referral Physician. 7 23:19 IV discontinued, intact, bleeding controlled, No redness/swelling at site. Pressure sm5 dressing applied. Administered Medications: 16:20 Drug: morphine 2 mg Route: IVP; Infused Over: 4 mins; Site: left antecubital; jd3 17:00 Follow up: Response: No adverse reaction; RASS: Alert and Calm (0) jd3 16:20 Drug: Zofran (Ondansetron) 2 mg Route: IVP; Site: left antecubital; jd3 17:00 Follow up: Response: No adverse reaction jd3 17:09 Drug: Potassium Chloride 20 mEq Route: IV; Rate: calculated rate; Site: left iw antecubital; 17:09 Drug: Potassium Effervescent Tablet 50 mEq Route: PO; iw 18:00 Follow up: Response: No adverse reaction jd3 20:10 Drug: Reglan (metoCLOPramide) 10 mg Route: IVP; Site: left antecubital; sm5 20:10 Drug: Benadryl (diphenhydrAMINE) 50 mg Route: IVP; Site: left antecubital; sm5 20:10 Drug: NS 0.9% 1000 ml Route: IV; Rate: 1000 ml; Site: left antecubital; sm5 Medication: 15:53 VIS not applicable for this client. jd3 Outcome: 23:00 Discharge ordered by . sherrill 23:18 Discharged to home ambulatory, with family. [email or web address] 23:18 Condition: stable 23:18 Discharge instructions given to patient, family, Instructed on discharge instructions, follow up and referral plans. Demonstrated understanding of instructions, follow-up care. 23:19 Patient left the ED. sm5 Signatures: Dispatcher [employer] EDMS Steve Cole MD MD kdr Williams, Irene RN RN iw Adam Hinson RN RN jb4 Elton Patel RN RN jd3 Meghan Lobo Maurice, MD MD 7 Brooke Garciaj6 López Posey RN RN ll3 Nena Han RN RN sm5
[2022-02-27 23:24] VITALS: TEMP 97.8
[2022-02-27 23:32] VITALS: O2SAT 100
[2022-02-27 23:33] VITALS: BP 101/70
== END 2022-02-27 23:19 | disposition home or self-care (01) ==
LOC: ER 15:36
PROC: 009U3ZX Drainage of Spinal Canal, Percutaneous Approach, Diagnostic (ICD-10-PCS; principal; 2022-02-27)
DX: R51.9 Headache, unspecified (principal); R11.0 Nausea; E03.9 Hypothyroidism, unspecified
CPT/HCPCS: 36415; 62270; 70450; 70496; 80048; 81003; 81025; 82945; 84157; 85025; 87070; 89050; 96374; 96375; 99285; J1200; J2270; J2405; J2765; J3480; J7030; J7040; Q9967

== ENCOUNTER 2023-08-31 10:14 | Emergency (ER) | payer SELFPAY ==
--- OUTSIDE RECORDS SUMMARY | 2023-08-31 10:19 | XMS REPORT | Continuity of Care Document ---
Author Name Unknown Address [address] [facility] [address] [place] [address] [facility] thconnect Address [address] [facility] 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 Name Role Phone Pcp, Patient Does Not Have A Primary Care Physic zenaida Mario Ramirez MD Attending Clinician Lab, Ang - Db Attending Clinician Unavailable MARIO RAMIREZ Attending Clinician Unavail able MARIO RAMIREZ Attending Clinician Unavail able Doctor Unassigned, [place] Attending Clinician U navailable MARIO RAMIREZ Admitting Clinician Unavail able Problems Condition Name Condition Details Condition Category Status Onset Date Resolution Date Last Treatment Date Treating Clinician Comments Source H/O aneurysm H/O aneurysm Disease Active 01-28 00:00: 00 [facility] Memory changes Memory changes Disease Active 01-28 00:00: 00 [facility] History of stroke History of stroke Disease Active 12-24 00:00: 00 [facility] Family history of brain aneurysm Family history of brain aneurysm Disease Active 12-24 00:00: 00 [facility] General counseling and advice for contracept aimee management General counseling and advice for contracept aimee management Disease Active 12-24 00:00: 00 [facility] Hypothyroi d Hypothyroi d Disease Active 12-24 00:00: 00 [facility] High cholestero l High cholestero l Disease Active 12-24 00:00: 00 [facility] Allergies, Adverse Reactions, Alerts Allergy Name Allergy Type Status Severity Reaction(s) Onset Date Inactive Date Treating Clinician Comments Source NO KNOWN ALLERGIE S Drug Class Active [facility] Social History Social Habit Start Date Stop Date Quantity Comments Source Exposure to SARS-CoV-2 (event) 2022-06-26 00:00:00 2022-07-06 09:37:00 Not sure [facility] Alcohol intake 2016-01-29 00:00:00 2016-01-29 00:00:00 0 /d [facility] Sex Assigned At 1975 00:00:00 1975 00:00:00 [facility] Smoking Status Start Date Stop Date Source Never smoked tobacco [facility] Medications Ordered Medication Name Filled Medication Name Start Date Stop Date Current Medication? Ordering Clinician Indication Dosage Frequency Signature (SIG) Comments Components Source Dose Unknown 2021-09 00:00: 00 No rosuvastati n (CRESTOR) 10 mg tablet 2021-09 10:25: 19 Yes 10mg Take 10 mg by mouth at bedtime. [facility] levothyroxi ne (SYNTHROID) 75 mcg tablet 2021-09 10:25: 19 Yes 75ug Take 75 mcg by mouth every morning. [facility] rosuvastati n (CRESTOR) 10 mg tablet 2021-09 10:25: 19 Yes 10mg Take 10 mg by mouth at bedtime. [facility] levothyroxi ne (SYNTHROID) 75 mcg tablet 2021-09 10:25: 19 Yes 75ug Take 75 mcg by mouth every morning. [facility] rosuvastati n (CRESTOR) 10 mg tablet 2021-09 10:25: 19 Yes 10mg Take 10 mg by mouth at bedtime. [facility] levothyroxi ne (SYNTHROID) 75 mcg tablet 2021-09 10:25: 19 Yes 75ug Take 75 mcg by mouth every morning. [facility] rosuvastati n (CRESTOR) 10 mg tablet 2021-09 10:25: 19 Yes 10mg Take 10 mg by mouth at bedtime. [facility] levothyroxi ne (SYNTHROID) 75 mcg tablet 2021-09 0-18 10:25: 19 Yes 75ug Take 75 mcg by mouth every morning. [facility] Dose Unknown 8 00:00: 00 No Dose Unknown 8 00:00: 00 No Dose Unknown 7 00:00: 00 No Dose Unknown 2- 00:00: 00 No Dose Unknown 0 2 00:00: 00 No Dose Unknown 8 00:00: 00 No Dose Unknown 8 00:00: 00 No hydroxyzine HCl 25 mg tablet 04-13 00:00: 00 No 1mg Dose Unknown 5 00:00: 00 No levothyroxi ne 75 mcg capsule 2-05 00:00: 00 No 1mcg meclizine 25 mg tablet 0 04-10 00:00: 00 No 1mg levothyroxi ne 75 mcg capsule 7 00:00: 00 No 1mcg mupirocin 2 % topical ointment 6- 00:00: 00 No 1% hydroxyzine HCl 25 mg tablet 6 00:00: 00 No 1mg hydroxyzine HCl 25 mg tablet 6- 00:00: 00 No 1mg levothyroxi ne 75 mcg capsule 0 4-20 00:00: 00 No 1mcg ibuprofen 600 mg tablet -18 00:00: 00 No 1mg cephalexin 500 mg tablet 4-18 00:00: 00 No 1mg ondansetron 4 mg disintegrat ing tablet 3-16 00:00: 00 No 1mg meclizine 25 mg tablet -16 00:00: 00 No 1mg levothyroxi ne 75 mcg capsule 3-16 00:00: 00 No 1mcg Debrox 6.5 % ear drops 0 3-12 00:00: 00 No 5% amoxicillin 500 mg capsule 3-12 00:00: 00 No 1mg Debrox 6.5 % ear drops 01-09 00:00: 00 No 5% rosuvastati n (CRESTOR) 10 mg tablet 01-28 15:34: 27 Yes 10mg Take 10 mg by mouth at bedtime. [facility] levothyroxi ne (SYNTHROID) 75 mcg tablet 01-28 15:34: 27 Yes 75ug Take 75 mcg by mouth every morning. [facility] rosuvastati n (CRESTOR) 10 mg tablet 01-28 15:34: 27 Yes 10mg Take 10 mg by mouth at bedtime. [facility] levothyroxi ne (SYNTHROID) 75 mcg tablet 01-28 15:34: 27 Yes 75ug Take 75 mcg by mouth every morning. [facility] rosuvastati n (CRESTOR) 10 mg tablet 01-28 15:34: 27 Yes 10mg Take 10 mg by mouth at bedtime. [facility] levothyroxi ne (SYNTHROID) 75 mcg tablet 01-28 15:34: 27 Yes 75ug Take 75 mcg by mouth every morning. [facility] levothyroxi ne 75 mcg capsule 2014-09 00:00: 00 No 1mcg Vital Signs Vital Name Observation Time Observation Value Comments S sridevifausto Systolic blood pressure 2022-07-06 15:11:00 113 mm[Hg] [facility] Diastolic blood pressure 2022-07-06 15:11:00 76 mm[Hg] [facility] Body height 2022-07-06 15:11:00 160 cm [facility] Body weight 2022-07-06 15:11:00 70.761 kg [facility] BMI 2022-07-06 15:11:00 27.63 kg/m2 [facility] Oxygen saturation in Arterial blood by Pulse oximetry 2022-07-06 15:11:00 96 /min [facility] BP Systolic 2022-07-29 08:19:00 106 mm[Hg] BP Diastolic 2022-07-29 08:19:00 74 mm[Hg] Weight Measured 2022-07-29 08:19:00 156.00 pounds Height Measured 2022-07-29 08:19:00 62.00 inches Body Temperature 2022-07-29 08:19:00 98.20 degrees Heart Rate 2022-07-29 08:19:00 78.00 /min Respiratory Rate 2022-07-29 08:19:00 18.00 /min BP Systolic 2022-03-05 11:29:00 107 mm[Hg] BP Diastolic 2022-03-05 11:29:00 75 mm[Hg] Weight Measured 2022-03-05 11:29:00 157.00 pounds Height Measured 2022-03-05 11:29:00 62.00 inches Body Temperature 2022-03-05 11:29:00 98.40 degrees Heart Rate 2022-03-05 11:29:00 94.00 /min Respiratory Rate 2022-03-05 11:29:00 18.00 /min BP Systolic 2021-11-14 14:01:00 105 mm[Hg] BP Diastolic 2021-11-14 14:01:00 70 mm[Hg] Weight Measured 2021-11-14 14:01:00 155.80 pounds Height Measured 2021-11-14 14:01:00 62.00 inches Body Temperature 2021-11-14 14:01:00 97.40 degrees Heart Rate 2021-11-14 14:01:00 89.00 /min Respiratory Rate 2021-11-14 14:01:00 BP Systolic 2021-06-04 16:53:00 113 mm[Hg] BP Diastolic 2021-06-04 16:53:00 79 mm[Hg] Weight Measured 2021-06-04 16:53:00 132.40 pounds Height Measured 2021-06-04 16:53:00 62.00 inches Body Temperature 2021-06-04 16:53:00 98.60 degrees Heart Rate 2021-06-04 16:53:00 96.00 /min Respiratory Rate 2021-06-04 16:53:00 BP Systolic 2021-02-09 08:56:00 90 mm[Hg] BP Diastolic 2021-02-09 08:56:00 56 mm[Hg] Weight Measured 2021-02-09 08:56:00 143.60 pounds Height Measured 2021-02-09 08:56:00 62.00 inches Body Temperature 2021-02-09 08:56:00 97.60 degrees Heart Rate 2021-02-09 08:56:00 74.00 /min Respiratory Rate 2021-02-09 08:56:00 BP Systolic 2021-02-09 08:48:00 90 mm[Hg] BP Diastolic 2021-02-09 08:48:00 56 mm[Hg] Weight Measured 2021-02-09 08:48:00 143.60 pounds Height Measured 2021-02-09 08:48:00 62.00 inches Body Temperature 2021-02-09 08:48:00 97.60 degrees Heart Rate 2021-02-09 08:48:00 74.00 /min Respiratory Rate 2021-02-09 08:48:00 BP Systolic 2020-10-24 08:59:00 102 mm[Hg] BP Diastolic 2020-10-24 08:59:00 71 mm[Hg] Weight Measured 2020-10-24 08:59:00 151.40 pounds Height Measured 2020-10-24 08:59:00 62.50 inches Body Temperature 2020-10-24 08:59:00 97.90 degrees Heart Rate 2020-10-24 08:59:00 77.00 /min Respiratory Rate 2020-10-24 08:59:00 17.00 /min BP Systolic 2020-04-10 08:18:00 92 mm[Hg] BP Diastolic 2020-04-10 08:18:00 66 mm[Hg] Weight Measured 2020-04-10 08:18:00 159.00 pounds Height Measured 2020-04-10 08:18:00 62.50 inches Body Temperature 2020-04-10 08:18:00 98.00 degrees Heart Rate 2020-04-10 08:18:00 79.00 /min Respiratory Rate 2020-04-10 08:18:00 16.00 /min BP Systolic 2020-04-04 15:43:00 102 mm[Hg] BP Diastolic 2020-04-04 15:43:00 69 mm[Hg] Weight Measured 2020-04-04 15:43:00 160.00 pounds Height Measured 2020-04-04 15:43:00 62.50 inches Body Temperature 2020-04-04 15:43:00 98.70 degrees Heart Rate 2020-04-04 15:43:00 80.00 /min Respiratory Rate 2020-04-04 15:43:00 16.00 /min BP Systolic 2020-03-07 10:22:00 101 mm[Hg] BP Diastolic 2020-03-07 10:22:00 69 mm[Hg] Weight Measured 2020-03-07 10:22:00 162.00 pounds Height Measured 2020-03-07 10:22:00 62.50 inches Body Temperature 2020-03-07 10:22:00 98.00 degrees Heart Rate 2020-03-07 10:22:00 68.00 /min Respiratory Rate 2020-03-07 10:22:00 16.00 /min Procedures Procedure Date / Time Performed Performing Clinicia n Source MR BRAIN WO CONTRAST 2022-06-29 16:46:[address] [facility] ASSIGNMENT OF BENEFITS 2022-06-29 14:25:57 Docto r Unassigned, [facility] Plan of Care Planned Activity Planned Date Details Comments Source Goal Plan of Care Note [code = 22759-4] Goal Plan of Care Note [code = 97305-4] Goal Plan of Care Note [code = 91459-0] Goal Plan of Care Note [code = 92194-9] Goal Plan of Care Note [code = 01058-8] Goal Plan of Care Note [code = 94419-1] Goal Plan of Care Note [code = 86531-7] Goal Plan of Care Note [code = 19500-5] Goal Plan of Care Note [code = 16155-0] Goal Plan of Care Note [code = 23366-3] Goal Plan of Care Note [code = 93739-8] Goal Plan of Care Note [code = 14067-5] Goal Plan of Care Note [code = 50672-3] Goal Plan of Care Note [code = 27017-6] Goal Plan of Care Note [code = 00606-7] Goal Plan of Care Note [code = 12335-8] Goal Plan of Care Note [code = 28527-6] Goal Plan of Care Note [code = 96373-6] Goal Plan of Care Note [code = 38508-9] Goal Plan of Care Note [code = 06625-9] Goal Plan of Care Note [code = 72407-4] Goal Plan of Care Note [code = 24236-8] Goal Plan of Care Note [code = 30315-6] Goal Plan of Care Note [code = 73921-6] Goal Plan of Care Note [code = 18920-8] Goal Plan of Care Note [code = 06106-8] Goal Plan of Care Note [code = 68889-6] Goal Plan of Care Note [code = 21954-4] Goal Plan of Care Note [code = 20851-2] Goal Plan of Care Note [code = 92026-1] Goal Plan of Care Note [code = 64430-8] Goal Plan of Care Note [code = 53757-1] Goal Plan of Care Note [code = 05889-1] Goal Plan of Care Note [code = 30111-7] Goal Plan of Care Note [code = 22005-5] Goal Plan of Care Note [code = 68475-5] Goal Plan of Care Note [code = 55118-9] Encounters Start Date/Time End Date/Time Encounter Type Admission Type Attending [facility] Facility Care Department Encounter ID Source 2023-08-30 10:31:38 2023-08-30 10:31:38 Outpatient [facility] [id number] 2023-07-11 15:37:34 2023-07-11 15:37:34 Outpatient S[facility] 10[address] 2023-07-06 08:56:19 2023-07-06 08:56:19 Outpatient SFA [facility] 1018 N[address] Rivas 2023-07-05 16:39:34 2023-07-05 16:39:34 Outpatient SFA [facility] 1017 N[address] Rivas 2023-03-03 14:33:33 2023-03-03 14:33:33 Outpatient SFA [facility] 0615 N[address]away 2023-02-18 09:37:52 2023-02-18 09:37:52 Outpatient SFA [facility] [id number] [address] Rivas 2022-11-11 08:19:07 2022-11-11 08:19:07 Outpatient S[facility] 0223 Nilo Hathaway 2022-09-07 00:00:00 2022-09-07 00:00:00 Telephone James Mario [facility] [id number] 350.1.13.10 4.2.7.2.686 [id number] [facility] 2022-08-17 08:41:39 2022-08-17 08:41:39 Outpatient SFA [facility] [id number] 2022-07-29 08:08:27 2022-07-29 08:08:27 Outpatient [facility] [id number] 2022-07-29 00:00:00 2022-07-29 00:00:00 Outpatient Visit [id number] 2022-07-06 10:45:00 2022-07-06 11:00:00 Payroll Manager Visit Lab, Hao - Mario Olson [facility] [id number] 350.1.13.10 4.2.7.2.686 [id number] [facility] 2022-07-06 10:00:00 2022-07-06 10:36:22 Outpatient MARIO PAL HOWARD [facility] [id number] [facility] 2022-07-06 10:00:00 2022-07-06 10:36:22 Office Visit Mario aRmirez [facility] [id number] 350.1.13.10 4.2.7.2.686 [id number] [facility] 2022-06-29 09:29:26 2022-06-29 23:59:00 Outpatient MARIO PAL HOWARD [facility] [id number] [facility] 2022-06-29 09:29:26 2022-06-29 23:59:00 Hospital Encounter Mario Ramirez [facility] 1.284.114 350.1.13.10 4.2.7.2.686 [id number] [facility] 2022-06-29 00:00:00 2022-06-29 00:00:00 Orders Only Doctor Unassigned, [place] [facility] 1.2.114 350.1.13.10 4.2.7.2.686 [id number] [facility] 2022-05-04 10:00:00 2022-05-04 10:00:00 [facility] 1.84.114 350.1.13.10 4.2.7.2.686 [id number] [facility] 2022-05-04 10:00:00 2022-05-04 09:30:52 Outpatient MARIO PAL HOWARD [facility] [id number] [facility] 2022-05-04 10:00:00 2022-05-04 09:30:52 Outpatient MARIO PAL HOWARD [facility] [id number] [facility] 2022-05-04 00:00:00 2022-05-04 00:00:00 Telephone Mario Ramirez [facility] 1.840.114 350.1.13.10 4.2.7.2.686 [id number] [facility] 2022-05-04 00:00:00 2022-05-04 00:00:00 Orders Only Doctor Unassigned, [place] [facility] 1.2.114 350.1.13.10 4.2.7.2.686 [id number] [facility] 2022-05-04 00:00:00 2022-05-04 00:00:00 Telephone Mario Ramirez [facility] [id number] 350.1.13.10 4.2.7.2.686 [id number] [facility] Results Test Description Test Time Test Comments Results Result Co mments Source HEMOGLOBIN [id number] 03:08:03* Test Item Value Reference Range Interpretation Comme nts HEMOGLOBIN A1c (test code = 39810) 5.3 % 4.2-5.6 CLOVER (ANTI-NUCLEAR AB) WITH REFLEX [id number] 01:09:29* Test Item Value Reference Range Interpretation Comme nts ANTI-NUCLEAR ANTIBODIES (test code = 3506) NEGATIVE NEGATIVE Methodology is I ndirect Immunofluorescent Assay (IFA) with a titering system using [id number] cells (Hep2 cells transfected with SS-A/Ro). CLOVER PATTERN (REPORTED TITER) (test code = 22647) SEE BELOW HOMOGENEOUS (test code = 96624) NEGATIVE TITER NEGATIVE SPECKLED (test code = 993697) NEGATIVE TITER NEGATIVE DENSE FINE SPECKLED (test code = 21277) NEGATIVE TITER NEGATIVE CENTROMERE (test code = 820658) NEGATIVE TITER NEGATIVE COARSE SPECKLED (test code = 232825) NEGATIVE TITER NEGATIVE DISCRETE NUCLEAR DOTS (test code = 619751) NEGATIVE TITER NEGATIVE NUCLEOLAR (test code = 029151) NEGATIVE TITER NEGATIVE NUCLEAR MEMBRANE (test code = 049868) NEGATIVE TITER NEGATIVE CYTO. RETICULAR (YVONNE) (test code = 239510) NEGATIVE NEGATIVE COMMENTS (test code = 236653) NONE METHOD (test code = 28774) (NOTE) TESTING PERFORME D BY [employer] IFA PLATFORM.THE METHOD INCLUDES A SCREEN THRESHOLD OF 1:80, DIGITIZED AND COMPUTER ALGORITHM-ASSISTED INTERPRETATION OF TITERS AND DIGITAL PATTERNS, AND HEp-2 CELL LINE SUBSTRATE. ADDITIONAL UNUSUAL PATTERNS WILL BE GIVEN COMMENTS.FOR MORE INFORMATION, SEE [email or web address] CCP [id number] 06:11:34* Test Item Value Reference Range Interpretation Comme nts CCP IgG (test code = 19564) <0.5 U/ML <3.0 INTERPRETIVE INFORMATION INTERPRETATION RESULT NEGATIVE <3.0 U/ML POSITIVE >=3.0 U/ML RHEUMATOID FACTOR, [id number] 04:38:41* Test Item Value Reference Range Interpretation Comme nts RHEUMATOID FACTOR, QUANT (te st code = 3502) <10 IU/ML <14 SEDIMENTATION [id number] 04:27:55* Test Item Value Reference Range Interpretation Comme nts SEDIMENTATION RATE (test code = 1017) 24 MM/HOUR 0-20 H UNLESS OTHERW ISE INDICATED, ALL TESTING PERFORMED AT [facility] [address] [place] [address] EXECUTIVE TEAM LEADER: RICK WHITING M.D. CLIA NUMBER [id number] [facility] [place]. [id number] URIC [id number] 04:10:25* Test Item Value Reference Range Interpretation Comme nts URIC ACID (test code = 2233) 3.3 MG/DL 2.7-6.1 TSH, THIRD [id number] 04:24:19* Test Item Value Reference Range Interpretation Comme nts TSH, THIRD GENERATION (test code = 2821) 2.970 UIU/ML 0.400-4.100 LIPID [id number] 04:21:31* Test Item Value Reference Range Interpretation Comme nts CHOLESTEROL (test code = 2210) 200 MG/DL <200 H TRIGLYCERIDES (test code = 2232) 83 MG/DL <150 HDL CHOLESTEROL (test code = 2220) 52 MG/DL >39 CALC LDL CHOL (test code = 2237) 130 MG/DL <100 H NOTE: CALCULATED LDL IS BASED ON PATRICK-ROBB METHOD WHICHINCLUDES ADJUSTABLE TRIGLYCERIDE:VLDL CHOLESTEROL RATIO.THIS FACTOR VARIES BY MEASURED TRIGLYCERIDE AND NON-HDLCHOLESTEROL CONCENTRATIONS WITH INCREASED CALCULATED LDL SEENIN HIGHER TRIGLYCERIDE OR LOWER NON-HDL SPECIMENS. FOR MOREINFORMATION, SEE CLIENT ANNOUNCEMENT AT [email or web address] /CalcLDL-C RISK RATIO LDL/HDL (test code = 2238) 2.50 RATIO <3.22 [facility] has i mportant pathology staff changes effective 11/17/2022. New pathology staff will provide uninterrupted, excellent patient care and clinical consultation. See URL: [email or web address]. UNLESS OTHERWISE INDICATED, ALL TESTING PERFORMED AT [facility] [address] [place] [address] EXECUTIVE TEAM LEADER: STEPHON FRANKLIN M.D. [place] NUMBER [id number] [facility] [place]. [id number] COMPREHENSIVE METABOLIC [id number] 05:18:29* Test Item Value Reference Range Interpretation Comme nts GLUCOSE (test code = 2217) 84 MG/DL 70-99 BUN (test code = 2208) 11 MG/DL 6-20 CREATININE (test code = 2214) 0.73 MG/DL 0.60-1.30 eGFR (2020 CKD-EPI) (test code = 35383) 101 ML/MIN/1.73 >60 CALC BUN/CREAT (test code = 2235) 15 RATIO 6-28 SODIUM (test code = 2231) 137 MEQ/L 133-146 POTASSIUM (test code = 2228) 4.5 MEQ/L 3.5-5.4 CHLORIDE (test code = 2215) 99 MEQ/L 95-107 CARBON DIOXIDE (test code = 2206) 26 MEQ/L 19-31 CALCIUM (test code = 2209) 8.9 MG/DL 8.5-10.5 PROTEIN, TOTAL (test code = 2229) 6.8 G/DL 6.1-8.3 ALBUMIN (test code = 2201) 4.3 G/DL 3.5-5.2 CALC GLOBULIN (test code = 2240) 2.5 G/DL 1.9-3.7 CALC A/G RATIO (test code = 2234) 1.7 RATIO 1.0-2.6 BILIRUBIN, TOTAL (test code = 2207) <0.2 MG/DL See_Comment [Automated me ssage] The system which generated this result transmitted reference range: <=1.2. The reference range was not used to interpret this result as normal/abnormal. ALKALINE PHOSPHATASE (test code = 2204) 59 U/L 40-123 AST (test code = 2218) 16 U/L 9-40 ALT (test code = 2219) 17 U/L 5-40 UNLESS OTHERWISE INDICATED, [facility] [address] [place] [address] EXECUTIVE TEAM LEADER: STEPHON FRANKLIN M.D. CLIA NUMBER [id number] [facility] [place]. [id number] CBC W/AUTO DIFF WITH [id number] 03:18:03* Test Item Value Reference Range Interpretation Comme nts WBC (test code = 1001) 7.4 K/UL 3.5-11.0 RBC (test code = 1002) 4.39 M/UL 3.80-5.40 HEMOGLOBIN (test code = 1003) 12.4 G/DL 11.5-15.5 HEMATOCRIT (test code = 1004) 37.9 % 34.0-45.0 MCV (test code = 1005) 86.3 fL 80.0-99.0 MCH (test code = 1006) 28.2 PG 25.0-33.0 MCHC (test code = 1007) 32.7 G/DL 31.0-36.0 RDW (test code = 1038) 15.7 % 11.5-15.0 H NEUTROPHILS (test code = 1008) 62.6 % LYMPHOCYTES (test code = 1010) 25.7 % MONOCYTES (test code = 1011) 7.8 % EOSINOPHILS (test code = 1012) 2.7 % BASOPHILS (test code = 1013) 0.8 % IMMATURE GRANULOCYTES (test code = 1036) 0.4 % NUCLEATED RBCS (test code = 1065) 0.0 /100 WBC'S See_Comment [Automated messa ge] The system which generated this result transmitted reference range: 0.0. The reference range was not used to interpret this result as normal/abnormal. PLATELET COUNT (test code = 1015) 328 K/UL 130-400 ABSOLUTE NEUTROPHILS (test code = 1066) 4.64 K/UL 1.50-7.50 ABSOLUTE LYMPHOCYTES (test code = 1067) 1.91 K/UL 1.00-4.00 ABSOLUTE MONOCYTES (test code = 1068) 0.58 K/UL 0.20-1.00 ABSOLUTE EOSINOPHILS (test code = 1040) 0.20 K/UL 0.00-0.50 ABSOLUTE BASOPHILS (test code = 1069) 0.06 K/UL 0.00-0.20 ABS IMMATURE GRANULOCYTES (test code = 1020) 0.03 K/UL 0.00-0.10 ABS NUCLEATED RBCS (test code = 37646) 0.00 K/UL 0.00-0.11 CBC W/AUTO [id number] 00:00:00* Test Item Value Reference Range Interpretation Comme nts WBC (test code = 1001) 7.4 K/UL RBC (test code = 1002) 4.39 M/UL HEMOGLOBIN (test code = 1003) 12.4 G/DL HEMATOCRIT (test code = 1004) 37.9 % MCV (test code = 1005) 86.3 fL MCH (test code = 1006) 28.2 PG MCHC (test code = 1007) 32.7 G/DL RDW (test code = 1038) 15.7 % NEUTROPHILS (test code = 1008) 62.6 % LYMPHOCYTES (test code = 1010) 25.7 % MONOCYTES (test code = 1011) 7.8 % EOSINOPHILS (test code = 1012) 2.7 % BASOPHILS (test code = 1013) 0.8 % IMMATURE GRANULOCYTES (test code = 1036) 0.4 % NUCLEATED RBCS (test code = 1065) 0.0 /100WBC'S PLATELET COUNT (test code = 1015) 328 K/UL ABSOLUTE NEUTROPHILS (test c ode = 1066) 4.64 K/UL ABSOLUTE LYMPHOCYTES (test c ode = 1067) 1.91 K/UL ABSOLUTE MONOCYTES (test cod e = 1068) 0.58 K/UL ABSOLUTE EOSINOPHILS (test c ode = 1040) 0.20 K/UL ABSOLUTE BASOPHILS (test cod e = 1069) 0.06 K/UL ABS IMMATURE GRANULOCYTES (t est code = 1020) 0.03 K/UL ABS NUCLEATED RBCS (test cod e = 99281) 0.00 K/UL CBC W/AUTO [id number] 00:00:00* Test Item Value Reference Range Interpretation Comme nts WBC (test code = 1001) 7.4 K/UL RBC (test code = 1002) 4.39 M/UL HEMOGLOBIN (test code = 1003) 12.4 G/DL HEMATOCRIT (test code = 1004) 37.9 % MCV (test code = 1005) 86.3 fL MCH (test code = 1006) 28.2 PG MCHC (test code = 1007) 32.7 G/DL RDW (test code = 1038) 15.7 % NEUTROPHILS (test code = 1008) 62.6 % LYMPHOCYTES (test code = 1010) 25.7 % MONOCYTES (test code = 1011) 7.8 % EOSINOPHILS (test code = 1012) 2.7 % BASOPHILS (test code = 1013) 0.8 % IMMATURE GRANULOCYTES (test code = 1036) 0.4 % NUCLEATED RBCS (test code = 1065) 0.0 /100WBC'S PLATELET COUNT (test code = 1015) 328 K/UL ABSOLUTE NEUTROPHILS (test c ode = 1066) 4.64 K/UL ABSOLUTE LYMPHOCYTES (test c ode = 1067) 1.91 K/UL ABSOLUTE MONOCYTES (test cod e = 1068) 0.58 K/UL ABSOLUTE EOSINOPHILS (test c ode = 1040) 0.20 K/UL ABSOLUTE BASOPHILS (test cod e = 1069) 0.06 K/UL ABS IMMATURE GRANULOCYTES (t est code = 1020) 0.03 K/UL ABS NUCLEATED RBCS (test cod e = 55547) 0.00 K/UL CBC W/AUTO [id number] 00:00:00* Test Item Value Reference Range Interpretation Comme nts WBC (test code = 1001) 7.4 K/UL RBC (test code = 1002) 4.39 M/UL HEMOGLOBIN (test code = 1003) 12.4 G/DL HEMATOCRIT (test code = 1004) 37.9 % MCV (test code = 1005) 86.3 fL MCH (test code = 1006) 28.2 PG MCHC (test code = 1007) 32.7 G/DL RDW (test code = 1038) 15.7 % NEUTROPHILS (test code = 1008) 62.6 % LYMPHOCYTES (test code = 1010) 25.7 % MONOCYTES (test code = 1011) 7.8 % EOSINOPHILS (test code = 1012) 2.7 % BASOPHILS (test code = 1013) 0.8 % IMMATURE GRANULOCYTES (test code = 1036) 0.4 % NUCLEATED RBCS (test code = 1065) 0.0 /100WBC'S PLATELET COUNT (test code = 1015) 328 K/UL ABSOLUTE NEUTROPHILS (test c ode = 1066) 4.64 K/UL ABSOLUTE LYMPHOCYTES (test c ode = 1067) 1.91 K/UL ABSOLUTE MONOCYTES (test cod e = 1068) 0.58 K/UL ABSOLUTE EOSINOPHILS (test c ode = 1040) 0.20 K/UL ABSOLUTE BASOPHILS (test cod e = 1069) 0.06 K/UL ABS IMMATURE GRANULOCYTES (t est code = 1020) 0.03 K/UL ABS NUCLEATED RBCS (test cod e = 98569) 0.00 K/UL COMPREHENSIVE METABOLIC [id number] 00:00:00* Test Item Value Reference Range Interpretation Comme nts GLUCOSE (test code = 2217) 84 MG/DL BUN (test code = 2208) 11 MG/DL CREATININE (test code = 2214) 0.73 MG/DL eGFR (2020 CKD-EPI) (test code = 60399) 101 ML/MIN/1.73 CALC BUN/CREAT (test code = 2235) 15 RATIO SODIUM (test code = 2231) 137 MEQ/L POTASSIUM (test code = 2228) 4.5 MEQ/L CHLORIDE (test code = 2215) 99 MEQ/L CARBON DIOXIDE (test code = 2206) 26 MEQ/L CALCIUM (test code = 2209) 8.9 MG/DL PROTEIN, TOTAL (test code = 2229) 6.8 G/DL ALBUMIN (test code = 2201) 4.3 G/DL CALC GLOBULIN (test code = 2240) 2.5 G/DL CALC A/G RATIO (test code = 2234) 1.7 RATIO BILIRUBIN, TOTAL (test code = 2207) <0.2 MG/DL ALKALINE PHOSPHATASE (test code = 2204) 59 U/L AST (test code = 2218) 16 U/L ALT (test code = 2219) 17 U/L COMPREHENSIVE METABOLIC [id number] 00:00:00* Test Item Value Reference Range Interpretation Comme nts GLUCOSE (test code = 2217) 84 MG/DL BUN (test code = 2208) 11 MG/DL CREATININE (test code = 2214) 0.73 MG/DL eGFR (2020 CKD-EPI) (test code = 97759) 101 ML/MIN/1.73 CALC BUN/CREAT (test code = 2235) 15 RATIO SODIUM (test code = 2231) 137 MEQ/L POTASSIUM (test code = 2228) 4.5 MEQ/L CHLORIDE (test code = 2215) 99 MEQ/L CARBON DIOXIDE (test code = 2206) 26 MEQ/L CALCIUM (test code = 2209) 8.9 MG/DL PROTEIN, TOTAL (test code = 222) 6.8 G/DL ALBUMIN (test code = 2201) 4.3 G/DL CALC GLOBULIN (test code = 2240) 2.5 G/DL CALC A/G RATIO (test code = 2234) 1.7 RATIO BILIRUBIN, TOTAL (test code = 2206) <0.2 MG/DL ALKALINE PHOSPHATASE (test code = 220) 59 U/L AST (test code = 2218) 16 U/L ALT (test code = 221) 17 U/L LIPID [id number] 01:22:39* Test Item Value Reference Range Interpretation Comme nts CHOLESTEROL (test code = 2209) 226 MG/DL <200 H TRIGLYCERIDES (test code = 2231) 480 MG/DL <150 H HDL CHOLESTEROL (test code = 2219) 41 MG/DL >39 CALC LDL CHOL (test code = 2236) (NOTE) MG/DL <100 UNABLE TO CALCUL ATE A VALID LDL CHOLESTEROL WHEN THE TRIGLYCERIDEVALUE IS GREATER THAN 400 MG/DL. NOTE: CALCULATED LDL IS BASED ON PATRICK-ROBB METHOD WHICHINCLUDES ADJUSTABLE TRIGLYCERIDE:VLDL CHOLESTEROL RATIO.THIS FACTOR VARIES BY MEASURED TRIGLYCERIDE AND NON-HDLCHOLESTEROL CONCENTRATIONS WITH INCREASED CALCULATED LDL SEENIN HIGHER TRIGLYCERIDE OR LOWER NON-HDL SPECIMENS. FOR MOREINFORMATION, SEE CLIENT ANNOUNCEMENT AT [email or web address]/ CalcLDL-C RISK RATIO LDL/HDL (test code = 2237) 3.07 RATIO <3.22 UNABLE TO CAIT CULATE COMPREHENSIVE METABOLIC [id number] 01:22:39* Test Item Value Reference Range Interpretation Comme nts GLUCOSE (test code = 2216) 107 MG/DL 70-99 H BUN (test code = 2207) 15 MG/DL 6-20 CREATININE (test code = 2214) 0.58 MG/DL 0.60-1.30 L eGFR (2020 CKD-EPI) (test code = 89937) 112 ML/MIN/1.73 >60 CALC BUN/CREAT (test code = 2235) 26 RATIO 6-28 SODIUM (test code = 223) 137 MEQ/L 133-146 POTASSIUM (test code = 2228) 4.6 MEQ/L 3.5-5.4 CHLORIDE (test code = 2215) 100 MEQ/L 95-107 CARBON DIOXIDE (test code = 2206) 18 MEQ/L 19-31 L CALCIUM (test code = 2209) 8.9 MG/DL 8.5-10.5 PROTEIN, TOTAL (test code = 2229) 7.2 G/DL 6.1-8.3 ALBUMIN (test code = 2201) 4.3 G/DL 3.5-5.2 CALC GLOBULIN (test code = 2240) 2.9 G/DL 1.9-3.7 CALC A/G RATIO (test code = 2234) 1.5 RATIO 1.0-2.6 BILIRUBIN, TOTAL (test code = 2207) <0.2 MG/DL See_Comment [Automated me ssage] The system which generated this result transmitted reference range: <=1.2. The reference range was not used to interpret this result as normal/abnormal. ALKALINE PHOSPHATASE (test code = 2204) 59 U/L 40-123 AST (test code = 2218) 20 U/L 9-40 ALT (test code = 2219) 16 U/L 5-40 UNLESS OTHERWISE INDICATED, ALL TESTING PERFORMED [facility] [employer] [employer] [address] [place] [address] EXECUTIVE TEAM LEADER: STEPHON FRANKLIN M.D. CLIA NUMBER [id number] [facility] [place]. [id number] TSH, THIRD [id number] 01:03:53* Test Item Value Reference Range Interpretation Comme nts TSH, THIRD GENERATION (test code = 2821) 3.030 UIU/ML 0.400-4.100 LIPID [id number] 00:00:00* Test Item Value Reference Range Interpretation Comme nts CHOLESTEROL (test code = 2210) 226 MG/DL TRIGLYCERIDES (test code = 2232) 480 MG/DL HDL CHOLESTEROL (test code = 2220) 41 MG/DL CALC LDL CHOL (test code = 2237) (NOTE) MG/DL RISK RATIO LDL/HDL (test cod e = 2238) 3.07 RATIO COMPREHENSIVE METABOLIC [id number] 00:00:00* Test Item Value Reference Range Interpretation Comme nts GLUCOSE (test code = 2217) 107 MG/DL BUN (test code = 2208) 15 MG/DL CREATININE (test code = 2214) 0.58 MG/DL eGFR (2020 CKD-EPI) (test code = 47680) 112 ML/MIN/1.73 CALC BUN/CREAT (test code = 2235) 26 RATIO SODIUM (test code = 2231) 137 MEQ/L POTASSIUM (test code = 2228) 4.6 MEQ/L CHLORIDE (test code = 2215) 100 MEQ/L CARBON DIOXIDE (test code = 2206) 18 MEQ/L CALCIUM (test code = 2209) 8.9 MG/DL PROTEIN, TOTAL (test code = 2229) 7.2 G/DL ALBUMIN (test code = 2201) 4.3 G/DL CALC GLOBULIN (test code = 2240) 2.9 G/DL CALC A/G RATIO (test code = 2234) 1.5 RATIO BILIRUBIN, TOTAL (test code = 2207) <0.2 MG/DL ALKALINE PHOSPHATASE (test code = 2204) 59 U/L AST (test code = 2218) 20 U/L ALT (test code = 2219) 16 U/L COMPREHENSIVE METABOLIC [id number] 00:00:00* Test Item Value Reference Range Interpretation Comme nts GLUCOSE (test code = 2217) 107 MG/DL BUN (test code = 2208) 15 MG/DL CREATININE (test code = 2214) 0.58 MG/DL eGFR (2020 CKD-EPI) (test code = 21831) 112 ML/MIN/1.73 CALC BUN/CREAT (test code = 2235) 26 RATIO SODIUM (test code = 2231) 137 MEQ/L POTASSIUM (test code = 2228) 4.6 MEQ/L CHLORIDE (test code = 2215) 100 MEQ/L CARBON DIOXIDE (test code = 2206) 18 MEQ/L CALCIUM (test code = 2209) 8.9 MG/DL PROTEIN, TOTAL (test code = 2229) 7.2 G/DL ALBUMIN (test code = 2201) 4.3 G/DL CALC GLOBULIN (test code = 2240) 2.9 G/DL CALC A/G RATIO (test code = 2234) 1.5 RATIO BILIRUBIN, TOTAL (test code = 2207) <0.2 MG/DL ALKALINE PHOSPHATASE (test code = 2204) 59 U/L AST (test code = 2218) 20 U/L ALT (test code = 2219) 16 U/L [id number] 00:00:00* Test Item Value Reference Range Interpretation Comme nts TSH, THIRD GENERATION (test code = 2821) 3.030 UIU/ML [id number] 00:00:00* Test Item Value Reference Range Interpretation Comme nts TSH, THIRD GENERATION (test code = 2821) 3.030 UIU/ML [id number] 00:00:00* Test Item Value Reference Range Interpretation Comme nts TSH, THIRD GENERATION (test code = 2821) 3.030 UIU/ML LIPID [id number] 00:00:00* Test Item Value Reference Range Interpretation Comme nts CHOLESTEROL (test code = 2210) 226 MG/DL TRIGLYCERIDES (test code = 2232) 480 MG/DL HDL CHOLESTEROL (test code = 2220) 41 MG/DL CALC LDL CHOL (test code = 2237) (NOTE) MG/DL RISK RATIO LDL/HDL (test cod e = 2238) 3.07 RATIO HEMOGLOBIN [id number] 05:54:09* Test Item Value Reference Range Interpretation Comme nts HEMOGLOBIN A1c (test code = 29804) 5.5 % 4.2-5.6 CBC W/AUTO DIFF WITH [id number] 04:21:47* Test Item Value Reference Range Interpretation Comme nts WBC (test code = 1001) 7.6 K/UL 3.5-11.0 RBC (test code = 1002) 4.41 M/UL 3.80-5.40 HEMOGLOBIN (test code = 1003) 12.5 G/DL 11.5-15.5 HEMATOCRIT (test code = 1004) 37.7 % 34.0-45.0 MCV (test code = 1005) 85.5 fL 80.0-99.0 MCH (test code = 1006) 28.3 PG 25.0-33.0 MCHC (test code = 1007) 33.2 G/DL 31.0-36.0 RDW (test code = 1038) 14.9 % 11.5-15.0 NEUTROPHILS (test code = 1008) 60.6 % LYMPHOCYTES (test code = 1010) 27.9 % MONOCYTES (test code = 1011) 7.4 % EOSINOPHILS (test code = 1012) 3.0 % BASOPHILS (test code = 1013) 0.7 % IMMATURE GRANULOCYTES (test code = 1036) 0.4 % NUCLEATED RBCS (test code = 1065) 0.0 /100 WBC'S See_Comment [Automated messa ge] The system which generated this result transmitted reference range: 0.0. The reference range was not used to interpret this result as normal/abnormal. PLATELET COUNT (test code = 1015) 367 K/UL 130-400 ABSOLUTE NEUTROPHILS (test code = 1066) 4.58 K/UL 1.50-7.50 ABSOLUTE LYMPHOCYTES (test code = 1067) 2.11 K/UL 1.00-4.00 ABSOLUTE MONOCYTES (test code = 1068) 0.56 K/UL 0.20-1.00 ABSOLUTE EOSINOPHILS (test code = 1040) 0.23 K/UL 0.00-0.50 ABSOLUTE BASOPHILS (test code = 1069) 0.05 K/UL 0.00-0.20 ABS IMMATURE GRANULOCYTES (test code = 1020) 0.03 K/UL 0.00-0.10 ABS NUCLEATED RBCS (test code = 31497) 0.00 K/UL 0.00-0.11 CBC W/AUTO [id number] 00:00:00* Test Item Value Reference Range Interpretation Comme nts WBC (test code = 1001) 7.6 K/UL RBC (test code = 1002) 4.41 M/UL HEMOGLOBIN (test code = 1003) 12.5 G/DL HEMATOCRIT (test code = 1004) 37.7 % MCV (test code = 1005) 85.5 fL MCH (test code = 1006) 28.3 PG MCHC (test code = 1007) 33.2 G/DL RDW (test code = 1038) 14.9 % NEUTROPHILS (test code = 1008) 60.6 % LYMPHOCYTES (test code = 1010) 27.9 % MONOCYTES (test code = 1011) 7.4 % EOSINOPHILS (test code = 1012) 3.0 % BASOPHILS (test code = 1013) 0.7 % IMMATURE GRANULOCYTES (test code = 1036) 0.4 % NUCLEATED RBCS (test code = 1065) 0.0 /100WBC'S PLATELET COUNT (test code = 1015) 367 K/UL ABSOLUTE NEUTROPHILS (test c ode = 1066) 4.58 K/UL ABSOLUTE LYMPHOCYTES (test c ode = 1067) 2.11 K/UL ABSOLUTE MONOCYTES (test cod e = 1068) 0.56 K/UL ABSOLUTE EOSINOPHILS (test c ode = 1040) 0.23 K/UL ABSOLUTE BASOPHILS (test cod e = 1069) 0.05 K/UL ABS IMMATURE GRANULOCYTES (t est code = 1020) 0.03 K/UL ABS NUCLEATED RBCS (test cod e = 23188) 0.00 K/UL CBC W/AUTO [id number] 00:00:00* Test Item Value Reference Range Interpretation Comme nts WBC (test code = 1001) 7.6 K/UL RBC (test code = 1002) 4.41 M/UL HEMOGLOBIN (test code = 1003) 12.5 G/DL HEMATOCRIT (test code = 1004) 37.7 % MCV (test code = 1005) 85.5 fL MCH (test code = 1006) 28.3 PG MCHC (test code = 1007) 33.2 G/DL RDW (test code = 1038) 14.9 % NEUTROPHILS (test code = 1008) 60.6 % LYMPHOCYTES (test code = 1010) 27.9 % MONOCYTES (test code = 1011) 7.4 % EOSINOPHILS (test code = 1012) 3.0 % BASOPHILS (test code = 1013) 0.7 % IMMATURE GRANULOCYTES (test code = 1036) 0.4 % NUCLEATED RBCS (test code = 1065) 0.0 /100WBC'S PLATELET COUNT (test code = 1015) 367 K/UL ABSOLUTE NEUTROPHILS (test c ode = 1066) 4.58 K/UL ABSOLUTE LYMPHOCYTES (test c ode = 1067) 2.11 K/UL ABSOLUTE MONOCYTES (test cod e = 1068) 0.56 K/UL ABSOLUTE EOSINOPHILS (test c ode = 1040) 0.23 K/UL ABSOLUTE BASOPHILS (test cod e = 1069) 0.05 K/UL ABS IMMATURE GRANULOCYTES (t est code = 1020) 0.03 K/UL ABS NUCLEATED RBCS (test cod e = 08595) 0.00 K/UL CBC W/AUTO [id number] 00:00:00* Test Item Value Reference Range Interpretation Comme nts WBC (test code = 1001) 7.6 K/UL RBC (test code = 1002) 4.41 M/UL HEMOGLOBIN (test code = 1003) 12.5 G/DL HEMATOCRIT (test code = 1004) 37.7 % MCV (test code = 1005) 85.5 fL MCH (test code = 1006) 28.3 PG MCHC (test code = 1007) 33.2 G/DL RDW (test code = 1038) 14.9 % NEUTROPHILS (test code = 1008) 60.6 % LYMPHOCYTES (test code = 1010) 27.9 % MONOCYTES (test code = 1011) 7.4 % EOSINOPHILS (test code = 1012) 3.0 % BASOPHILS (test code = 1013) 0.7 % IMMATURE GRANULOCYTES (test code = 1036) 0.4 % NUCLEATED RBCS (test code = 1065) 0.0 /100WBC'S PLATELET COUNT (test code = 1015) 367 K/UL ABSOLUTE NEUTROPHILS (test c ode = 1066) 4.58 K/UL ABSOLUTE LYMPHOCYTES (test c ode = 1067) 2.11 K/UL ABSOLUTE MONOCYTES (test cod e = 1068) 0.56 K/UL ABSOLUTE EOSINOPHILS (test c ode = 1040) 0.23 K/UL ABSOLUTE BASOPHILS (test cod e = 1069) 0.05 K/UL ABS IMMATURE GRANULOCYTES (t est code = 1020) 0.03 K/UL ABS NUCLEATED RBCS (test cod e = 05690) 0.00 K/UL HEMOGLOBIN [id number] 00:00:00* Test Item Value Reference Range Interpretation Comme nts HEMOGLOBIN A1c (test code = 38381) 5.5 % HEMOGLOBIN [id number] 00:00:00* Test Item Value Reference Range Interpretation Comme nts HEMOGLOBIN A1c (test code = 48517) 5.5 % HEMOGLOBIN [id number] 00:00:00* Test Item Value Reference Range Interpretation Comme nts HEMOGLOBIN A1c (test code = 07446) 5.5 % SARS-CoV-2 (COVID-19) by RT-PCR (HIGH RISK)2021-05-20 00:00:00* Test Item Value Reference Range Interpretation Comme nts SARS-CoV-2 INTERPRETATION (t est code = 53124) NEGATIVE SOURCE (test code = 39148) NOT SPECIFIED SARS-CoV-2 (COVID-19) by RT-PCR (HIGH RISK)2021-05-20 00:00:00* Test Item Value Reference Range Interpretation Comme nts SARS-CoV-2 INTERPRETATION (t est code = 09735) NEGATIVE SOURCE (test code = 87758) NOT SPECIFIED SARS-CoV-2 (COVID-19) by RT-PCR (HIGH RISK)2021-05-16 00:00:00* Test Item Value Reference Range Interpretation Comme nts SARS-CoV-2 INTERPRETATION (test code = 63274) TEST NOT PERFORMED SOURCE (test code = 61265) TEST NOT PERFORMED SARS-CoV-2 (COVID-19) by RT-PCR (HIGH RISK)2021-05-16 00:00:00* Test Item Value Reference Range Interpretation Comme nts SARS-CoV-2 INTERPRETATION (test code = 79449) TEST NOT PERFORMED SOURCE (test code = 08368) TEST NOT PERFORMED CBC W/AUTO [id number] 00:00:00* Test Item Value Reference Range Interpretation Comme nts WBC (test code = 1001) 5.5 K/UL RBC (test code = 1002) 4.57 M/UL HEMOGLOBIN (test code = 1003) 11.6 G/DL HEMATOCRIT (test code = 1004) 36.8 % MCV (test code = 1005) 80.5 fL MCH (test code = 1006) 25.4 PG MCHC (test code = 1007) 31.5 G/DL RDW (test code = 1038) 17.5 % NEUTROPHILS (test code = 1008) 60.2 % LYMPHOCYTES (test code = 1010) 29.0 % MONOCYTES (test code = 1011) 6.8 % EOSINOPHILS (test code = 1012) 2.9 % BASOPHILS (test code = 1013) 0.7 % IMMATURE GRANULOCYTES (test code = 1036) 0.4 % NUCLEATED RBCS (test code = 1065) 0.0 /100WBC'S PLATELET COUNT (test code = 1015) 348 K/UL ABSOLUTE NEUTROPHILS (test c ode = 1066) 3.30 K/UL ABSOLUTE LYMPHOCYTES (test c ode = 1067) 1.59 K/UL ABSOLUTE MONOCYTES (test cod e = 1068) 0.37 K/UL ABSOLUTE EOSINOPHILS (test c ode = 1040) 0.16 K/UL ABSOLUTE BASOPHILS (test cod e = 1069) 0.04 K/UL ABS IMMATURE GRANULOCYTES (t est code = 1020) 0.02 K/UL ABS NUCLEATED RBCS (test cod e = 95540) 0.00 K/UL CBC W/AUTO [id number] 00:00:00* Test Item Value Reference Range Interpretation Comme nts WBC (test code = 1001) 5.5 K/UL RBC (test code = 1002) 4.57 M/UL HEMOGLOBIN (test code = 1003) 11.6 G/DL HEMATOCRIT (test code = 1004) 36.8 % MCV (test code = 1005) 80.5 fL MCH (test code = 1006) 25.4 PG MCHC (test code = 1007) 31.5 G/DL RDW (test code = 1038) 17.5 % NEUTROPHILS (test code = 1008) 60.2 % LYMPHOCYTES (test code = 1010) 29.0 % MONOCYTES (test code = 1011) 6.8 % EOSINOPHILS (test code = 1012) 2.9 % BASOPHILS (test code = 1013) 0.7 % IMMATURE GRANULOCYTES (test code = 1036) 0.4 % NUCLEATED RBCS (test code = 1065) 0.0 /100WBC'S PLATELET COUNT (test code = 1015) 348 K/UL ABSOLUTE NEUTROPHILS (test c ode = 1066) 3.30 K/UL ABSOLUTE LYMPHOCYTES (test c ode = 1067) 1.59 K/UL ABSOLUTE MONOCYTES (test cod e = 1068) 0.37 K/UL ABSOLUTE EOSINOPHILS (test c ode = 1040) 0.16 K/UL ABSOLUTE BASOPHILS (test cod e = 1069) 0.04 K/UL ABS IMMATURE GRANULOCYTES (t est code = 1020) 0.02 K/UL ABS NUCLEATED RBCS (test cod e = 74701) 0.00 K/UL CBC W/AUTO [id number] 00:00:00* Test Item Value Reference Range Interpretation Comme nts WBC (test code = 1001) 5.5 K/UL RBC (test code = 1002) 4.57 M/UL HEMOGLOBIN (test code = 1003) 11.6 G/DL HEMATOCRIT (test code = 1004) 36.8 % MCV (test code = 1005) 80.5 fL MCH (test code = 1006) 25.4 PG MCHC (test code = 1007) 31.5 G/DL RDW (test code = 1038) 17.5 % NEUTROPHILS (test code = 1008) 60.2 % LYMPHOCYTES (test code = 1010) 29.0 % MONOCYTES (test code = 1011) 6.8 % EOSINOPHILS (test code = 1012) 2.9 % BASOPHILS (test code = 1013) 0.7 % IMMATURE GRANULOCYTES (test code = 1036) 0.4 % NUCLEATED RBCS (test code = 1065) 0.0 /100WBC'S PLATELET COUNT (test code = 1015) 348 K/UL ABSOLUTE NEUTROPHILS (test c ode = 1066) 3.30 K/UL ABSOLUTE LYMPHOCYTES (test c ode = 1067) 1.59 K/UL ABSOLUTE MONOCYTES (test cod e = 1068) 0.37 K/UL ABSOLUTE EOSINOPHILS (test c ode = 1040) 0.16 K/UL ABSOLUTE BASOPHILS (test cod e = 1069) 0.04 K/UL ABS IMMATURE GRANULOCYTES (t est code = 1020) 0.02 K/UL ABS NUCLEATED RBCS (test cod e = 83377) 0.00 K/UL [id number] 00:00:00* Test Item Value Reference Range Interpretation Comme nts TSH, THIRD GENERATION (test code = 2821) 3.880 UIU/ML [id number] 00:00:00* Test Item Value Reference Range Interpretation Comme nts TSH, THIRD GENERATION (test code = 2821) 3.880 UIU/ML [id number] 00:00:00* Test Item Value Reference Range Interpretation Comme nts TSH, THIRD GENERATION (test code = 2821) 3.880 UIU/ML VITAMIN B 12 AND FOLIC [id number] 00:00:00* Test Item Value Reference Range Interpretation Comme nts VITAMIN B-12 (test code = 2840) 398 PG/ML FOLIC ACID (test code = 2695) 16.5 UG/L VITAMIN B 12 AND FOLIC [id number] 00:00:00* Test Item Value Reference Range Interpretation Comme nts VITAMIN B-12 (test code = 2840) 398 PG/ML FOLIC ACID (test code = 2695) 16.5 UG/L VITAMIN D, 25 [id number] 00:00:00* Test Item Value Reference Range Interpretation Comme nts VITAMIN D, 25 OH (test code = 4958) 29 NG/ML VITAMIN D, 25 [id number] 00:00:00* Test Item Value Reference Range Interpretation Comme nts VITAMIN D, 25 OH (test code = 4958) 29 NG/ML SCR MAMM BILATERAL MARICARMEN CAD [id number] 09:50:45 Name: Mayra : 1975 Sex: F - SCR MAMM BILATERAL MARICARMEN CAD DIGITALBILATERAL DIGITAL SCREENING MAMMOGRAM 3D/2D WITH CAD: 01/16/2021LINICAL: Asymptomatic. Digital breast tomosynthesis was performed in addition to routine CC and MLO views. Current mammographic images were evaluated by Dr. TATTOFF CAD (computed aided detection) software. Comparison is m nichole to exam dated 12/09/2014 mammogram - [facility]. The tissue of both breasts is extremely dense, which lowers the sensitivity of mammography. There are nodular densities bilaterally that most likely represent benign fibroadenomas, cysts, or nodular breast tissue, however this must be confirmed with ultrasound. No suspicious mass, architectural distortion, malignant type calcification, or lymph node abnormality detected. IMPRESSION: INCOMPLETE: ADDITIONAL IMAGING EVALUATION NEEDEDBilateral ultrasound recommended. Chelsea Harris M.D. dm/penrad:01/21/2021 09:50:45 Cleaning Supervisor: Brittney Cardozo MM, [facility] sent: Additional Imaging Mammogram BI-RA DS: 0 Incomplete: Additional Imaging Evaluation NeededPAP TEST, THINPREP, IMAGED 2020-10-28 00:00:00* Test Item Value Reference Range Interpretation Comme nts SOURCE: (test code = 8001) Cervical/Endocervical SLIDES: (test code = 8011) 1 LMP: (test code = 8021) 10/03/2020 SPECIMEN ADEQUACY: (test code = 75632) (NOTE) INTERPRETATION: (test code = 62436) NILM/NO EPITH. ABNORMALITY;SEE BELOW FLOOR PLAN ADJUSTER: (test code = 8101) DEONNA Conteh(ASCP)IA C LOCATION: (test code = 53549) (NOTE) CPT: (test code = 8140) (NOTE) PAP TEST, THINPREP, [id number] 00:00:00* Test Item Value Reference Range Interpretation Comme nts SOURCE: (test code = 8001) Cervical/Endocervical SLIDES: (test code = 8011) 1 LMP: (test code = 8021) 10/03/2020 SPECIMEN ADEQUACY: (test code = 65622) (NOTE) INTERPRETATION: (test code = 59570) NILM/NO EPITH. ABNORMALITY;SEE BELOW FLOOR PLAN ADJUSTER: (test code = 8101) DEONNA Conteh(ASCP)IA C LOCATION: (test code = 97062) (NOTE) CPT: (test code = 8140) (NOTE) HPV HIGH RISK WITH GENOTYPE, [id number] 00:00:00* Test Item Value Reference Range Interpretation Comme nts HPV HIGH RISK INTERP (test c ode = 95966) NEGATIVE HPV 16 (test code = 20982) NEGATIVE HPV 18 (test code = 17196) NEGATIVE HPV, HR, OTHER GENOTYPES (te st code = 37385) NEGATIVE HPV HIGH RISK WITH GENOTYPE, [id number] 00:00:00* Test Item Value Reference Range Interpretation Comme nts HPV HIGH RISK INTERP (test c ode = 19133) NEGATIVE HPV 16 (test code = 17119) NEGATIVE HPV 18 (test code = 32508) NEGATIVE HPV, HR, OTHER GENOTYPES (te st code = 17838) NEGATIVE [id number] 00:00:00* Test Item Value Reference Range Interpretation Comme nts TSH, THIRD GENERATION (test code = 2821) 2.170 UIU/ML [id number] 00:00:00* Test Item Value Reference Range Interpretation Comme nts TSH, THIRD GENERATION (test code = 2821) 2.170 UIU/ML [id number] 00:00:00* Test Item Value Reference Range Interpretation Comme nts TSH, THIRD GENERATION (test code = 2821) 2.170 UIU/ML CBC W/AUTO [id number] 00:00:00* Test Item Value Reference Range Interpretation Comme nts WBC (test code = 1001) 5.5 K/UL RBC (test code = 1002) 4.61 M/UL HEMOGLOBIN (test code = 1003) 11.3 G/DL HEMATOCRIT (test code = 1004) 35.4 % MCV (test code = 1005) 76.8 fL MCH (test code = 1006) 24.5 PG MCHC (test code = 1007) 31.9 G/DL RDW (test code = 1038) 16.5 % NEUTROPHILS (test code = 1008) 58.4 % LYMPHOCYTES (test code = 1010) 30.2 % MONOCYTES (test code = 1011) 7.4 % EOSINOPHILS (test code = 1012) 3.1 % BASOPHILS (test code = 1013) 0.9 % PLATELET COUNT (test code = 1015) 314 K/UL CBC W/AUTO [id number] 00:00:00* Test Item Value Reference Range Interpretation Comme nts WBC (test code = 1001) 5.5 K/UL RBC (test code = 1002) 4.61 M/UL HEMOGLOBIN (test code = 1003) 11.3 G/DL HEMATOCRIT (test code = 1004) 35.4 % MCV (test code = 1005) 76.8 fL MCH (test code = 1006) 24.5 PG MCHC (test code = 1007) 31.9 G/DL RDW (test code = 1038) 16.5 % NEUTROPHILS (test code = 1008) 58.4 % LYMPHOCYTES (test code = 1010) 30.2 % MONOCYTES (test code = 1011) 7.4 % EOSINOPHILS (test code = 1012) 3.1 % BASOPHILS (test code = 1013) 0.9 % PLATELET COUNT (test code = 1015) 314 K/UL CBC W/AUTO [id number] 00:00:00* Test Item Value Reference Range Interpretation Comme nts WBC (test code = 1001) 5.5 K/UL RBC (test code = 1002) 4.61 M/UL HEMOGLOBIN (test code = 1003) 11.3 G/DL HEMATOCRIT (test code = 1004) 35.4 % MCV (test code = 1005) 76.8 fL MCH (test code = 1006) 24.5 PG MCHC (test code = 1007) 31.9 G/DL RDW (test code = 1038) 16.5 % NEUTROPHILS (test code = 1008) 58.4 % LYMPHOCYTES (test code = 1010) 30.2 % MONOCYTES (test code = 1011) 7.4 % EOSINOPHILS (test code = 1012) 3.1 % BASOPHILS (test code = 1013) 0.9 % PLATELET COUNT (test code = 1015) 314 K/UL HEMOGLOBIN [id number] 00:00:00* Test Item Value Reference Range Interpretation Comme nts HEMOGLOBIN A1c (test code = 67344) 5.8 % HEMOGLOBIN [id number] 00:00:00* Test Item Value Reference Range Interpretation Comme nts HEMOGLOBIN A1c (test code = 85326) 5.8 % HEMOGLOBIN [id number] 00:00:00* Test Item Value Reference Range Interpretation Comme nts HEMOGLOBIN A1c (test code = 87381) 5.8 % LIPID [id number] 00:00:00* Test Item Value Reference Range Interpretation Comme nts CHOLESTEROL (test code = 2210) 201 MG/DL TRIGLYCERIDES (test code = 2232) 121 MG/DL HDL CHOLESTEROL (test code = 2220) 53 MG/DL CALC LDL CHOL (test code = 2237) 125 MG/DL RISK RATIO LDL/HDL (test cod e = 2238) 2.36 RATIO LIPID [id number] 00:00:00* Test Item Value Reference Range Interpretation Comme nts CHOLESTEROL (test code = 2210) 201 MG/DL TRIGLYCERIDES (test code = 2232) 121 MG/DL HDL CHOLESTEROL (test code = 2220) 53 MG/DL CALC LDL CHOL (test code = 2237) 125 MG/DL RISK RATIO LDL/HDL (test cod e = 2238) 2.36 RATIO COMPREHENSIVE METABOLIC [id number] 00:00:00* Test Item Value Reference Range Interpretation Comme nts GLUCOSE (test code = 2217) 88 MG/DL BUN (test code = 2208) 9 MG/DL CREATININE (test code = 2214) 0.58 MG/DL eGFR AMER. (test cod e = 02258) 127 ML/MIN/1.73 eGFR NON- AMER. (test code = 22926) 110 ML/MIN/1.73 CALC BUN/CREAT (test code = 2235) 16 RATIO SODIUM (test code = 2231) 139 MEQ/L POTASSIUM (test code = 2228) 4.8 MEQ/L CHLORIDE (test code = 2215) 100 MEQ/L CARBON DIOXIDE (test code = 2206) 25 MEQ/L CALCIUM (test code = 2209) 9.4 MG/DL PROTEIN, TOTAL (test code = 2229) 7.6 G/DL ALBUMIN (test code = 2201) 4.6 G/DL CALC GLOBULIN (test code = 2240) 3.0 G/DL CALC A/G RATIO (test code = 2234) 1.5 RATIO BILIRUBIN, TOTAL (test code = 2207) 0.3 MG/DL ALKALINE PHOSPHATASE (test code = 2204) 67 U/L AST (test code = 2218) 25 U/L ALT (test code = 2219) 17 U/L COMPREHENSIVE METABOLIC [id number] 00:00:00* Test Item Value Reference Range Interpretation Comme nts GLUCOSE (test code = 2217) 88 MG/DL BUN (test code = 2208) 9 MG/DL CREATININE (test code = 2214) 0.58 MG/DL eGFR AMER. (test cod e = 21072) 127 ML/MIN/1.73 eGFR NON- AMER. (test code = 73860) 110 ML/MIN/1.73 CALC BUN/CREAT (test code = 2235) 16 RATIO SODIUM (test code = 2231) 139 MEQ/L POTASSIUM (test code = 2228) 4.8 MEQ/L CHLORIDE (test code = 2215) 100 MEQ/L CARBON DIOXIDE (test code = 2206) 25 MEQ/L CALCIUM (test code = 2209) 9.4 MG/DL PROTEIN, TOTAL (test code = 2229) 7.6 G/DL ALBUMIN (test code = 2201) 4.6 G/DL CALC GLOBULIN (test code = 2240) 3.0 G/DL CALC A/G RATIO (test code = 2234) 1.5 RATIO BILIRUBIN, TOTAL (test code = 2207) 0.3 MG/DL ALKALINE PHOSPHATASE (test code = 2204) 67 U/L AST (test code = 2218) 25 U/L ALT (test code = 2219) 17 U/L [id number] 00:00:00* Test Item Value Reference Range Interpretation Comme nts TSH, THIRD GENERATION (test code = 2821) 1.410 UIU/ML [id number] 00:00:00* Test Item Value Reference Range Interpretation Comme nts TSH, THIRD GENERATION (test code = 2821) 1.410 UIU/ML [id number] 00:00:00* Test Item Value Reference Range Interpretation Comme nts TSH, THIRD GENERATION (test code = 2821) 1.410 UIU/ML [id number] 00:00:00* Test Item Value Reference Range Interpretation Comme nts TSH, THIRD GENERATION (test code = 2821) 2.780 UIU/ML [id number] 00:00:00* Test Item Value Reference Range Interpretation Comme nts TSH, THIRD GENERATION (test code = 2821) 2.780 UIU/ML [id number] 00:00:00* Test Item Value Reference Range Interpretation Comme nts TSH, THIRD GENERATION (test code = 2821) 2.780 UIU/ML [id number] 00:00:00* Test Item Value Reference Range Interpretation Comme nts TSH, THIRD GENERATION (test code = 2821) 8.480 UIU/ML [id number] 00:00:00* Test Item Value Reference Range Interpretation Comme nts TSH, THIRD GENERATION (test code = 2821) 8.480 UIU/ML [id number] 00:00:00* Test Item Value Reference Range Interpretation Comme nts TSH, THIRD GENERATION (test code = 2821) 8.480 UIU/ML COMPREHENSIVE METABOLIC [id number] 00:00:00* Test Item Value Reference Range Interpretation Comme nts GLUCOSE (test code = 2217) 91 MG/DL BUN (test code = 2208) 10 MG/DL CREATININE (test code = 2214) 0.57 MG/DL eGFR AMER. (test cod e = 21112) 129 ML/MIN/1.73 eGFR NON- AMER. (test code = 41025) 111 ML/MIN/1.73 CALC BUN/CREAT (test code = 2235) 18 RATIO SODIUM (test code = 2231) 142 MEQ/L POTASSIUM (test code = 2228) 5.1 MEQ/L CHLORIDE (test code = 2215) 101 MEQ/L CARBON DIOXIDE (test code = 2206) 28 MEQ/L CALCIUM (test code = 2209) 9.8 MG/DL PROTEIN, TOTAL (test code = 2229) 7.7 G/DL ALBUMIN (test code = 2201) 4.8 G/DL CALC GLOBULIN (test code = 2240) 2.9 G/DL CALC A/G RATIO (test code = 2234) 1.7 RATIO BILIRUBIN, TOTAL (test code = 2207) <0.2 MG/DL ALKALINE PHOSPHATASE (test code = 2204) 68 U/L AST (test code = 2218) 23 U/L ALT (test code = 2219) 24 U/L COMPREHENSIVE METABOLIC [id number] 00:00:00* Test Item Value Reference Range Interpretation Comme nts GLUCOSE (test code = 2217) 91 MG/DL BUN (test code = 2208) 10 MG/DL CREATININE (test code = 2214) 0.57 MG/DL eGFR AMER. (test cod e = 56027) 129 ML/MIN/1.73 eGFR NON- AMER. (test code = 32359) 111 ML/MIN/1.73 CALC BUN/CREAT (test code = 2235) 18 RATIO SODIUM (test code = 2231) 142 MEQ/L POTASSIUM (test code = 2228) 5.1 MEQ/L CHLORIDE (test code = 2215) 101 MEQ/L CARBON DIOXIDE (test code = 2206) 28 MEQ/L CALCIUM (test code = 2209) 9.8 MG/DL PROTEIN, TOTAL (test code = 2229) 7.7 G/DL ALBUMIN (test code = 2201) 4.8 G/DL CALC GLOBULIN (test code = 2240) 2.9 G/DL CALC A/G RATIO (test code = 2234) 1.7 RATIO BILIRUBIN, TOTAL (test code = 2207) <0.2 MG/DL ALKALINE PHOSPHATASE (test code = 2204) 68 U/L AST (test code = 2218) 23 U/L ALT (test code = 2219) 24 U/L LIPID [id number] 00:00:00* Test Item Value Reference Range Interpretation Comme nts CHOLESTEROL (test code = 2210) 203 MG/DL TRIGLYCERIDES (test code = 2232) 114 MG/DL HDL CHOLESTEROL (test code = 2220) 60 MG/DL CALC LDL CHOL (test code = 2237) 121 MG/DL RISK RATIO LDL/HDL (test cod e = 2238) 2.02 RATIO LIPID [id number] 00:00:00* Test Item Value Reference Range Interpretation Comme nts CHOLESTEROL (test code = 2210) 203 MG/DL TRIGLYCERIDES (test code = 2232) 114 MG/DL HDL CHOLESTEROL (test code = 2220) 60 MG/DL CALC LDL CHOL (test code = 2237) 121 MG/DL RISK RATIO LDL/HDL (test cod e = 2238) 2.02 RATIO HEMOGLOBIN [id number] 00:00:00* Test Item Value Reference Range Interpretation Comme nts HEMOGLOBIN A1c (test code = 74623) 5.5 % HEMOGLOBIN [id number] 00:00:00* Test Item Value Reference Range Interpretation Comme nts HEMOGLOBIN A1c (test code = 01431) 5.5 % HEMOGLOBIN [id number] 00:00:00* Test Item Value Reference Range Interpretation Comme nts HEMOGLOBIN A1c (test code = 85197) 5.5 % CBC W/AUTO [id number] 00:00:00* Test Item Value Reference Range Interpretation Comme nts WBC (test code = 1001) 6.1 K/UL RBC (test code = 1002) 4.66 M/UL HEMOGLOBIN (test code = 1003) 11.6 G/DL HEMATOCRIT (test code = 1004) 36.5 % MCV (test code = 1005) 78.3 fL MCH (test code = 1006) 24.9 PG MCHC (test code = 1007) 31.8 G/DL RDW (test code = 1038) 16.6 % NEUTROPHILS (test code = 1008) 50.6 % LYMPHOCYTES (test code = 1010) 38.6 % MONOCYTES (test code = 1011) 7.8 % EOSINOPHILS (test code = 1012) 2.3 % BASOPHILS (test code = 1013) 0.7 % PLATELET COUNT (test code = 1015) 398 K/UL CBC W/AUTO [id number] 00:00:00* Test Item Value Reference Range Interpretation Comme nts WBC (test code = 1001) 6.1 K/UL RBC (test code = 1002) 4.66 M/UL HEMOGLOBIN (test code = 1003) 11.6 G/DL HEMATOCRIT (test code = 1004) 36.5 % MCV (test code = 1005) 78.3 fL MCH (test code = 1006) 24.9 PG MCHC (test code = 1007) 31.8 G/DL RDW (test code = 1038) 16.6 % NEUTROPHILS (test code = 1008) 50.6 % LYMPHOCYTES (test code = 1010) 38.6 % MONOCYTES (test code = 1011) 7.8 % EOSINOPHILS (test code = 1012) 2.3 % BASOPHILS (test code = 1013) 0.7 % PLATELET COUNT (test code = 1015) 398 K/UL CBC W/AUTO [id number] 00:00:00* Test Item Value Reference Range Interpretation Comme nts WBC (test code = 1001) 6.1 K/UL RBC (test code = 1002) 4.66 M/UL HEMOGLOBIN (test code = 1003) 11.6 G/DL HEMATOCRIT (test code = 1004) 36.5 % MCV (test code = 1005) 78.3 fL MCH (test code = 1006) 24.9 PG MCHC (test code = 1007) 31.8 G/DL RDW (test code = 1038) 16.6 % NEUTROPHILS (test code = 1008) 50.6 % LYMPHOCYTES (test code = 1010) 38.6 % MONOCYTES (test code = 1011) 7.8 % EOSINOPHILS (test code = 1012) 2.3 % BASOPHILS (test code = 1013) 0.7 % PLATELET COUNT (test code = 1015) 398 K/UL HEMOGLOBIN [id number] 00:00:00* Test Item Value Reference Range Interpretation Comme nts HEMOGLOBIN A1c (test code = 15104) 5.6 % HEMOGLOBIN [id number] 00:00:00* Test Item Value Reference Range Interpretation Comme nts HEMOGLOBIN A1c (test code = 99130) 5.6 % HEMOGLOBIN [id number] 00:00:00* Test Item Value Reference Range Interpretation Comme nts HEMOGLOBIN A1c (test code = 65450) 5.6 % LIPID [id number] 00:00:00* Test Item Value Reference Range Interpretation Comme nts CHOLESTEROL (test code = 2210) 167 MG/DL TRIGLYCERIDES (test code = 2232) 119 MG/DL HDL CHOLESTEROL (test code = 2220) 44 MG/DL CALC LDL CHOL (test code = 2237) 99 MG/DL RISK RATIO LDL/HDL (test cod e = 2238) 2.25 RATIO LIPID [id number] 00:00:00* Test Item Value Reference Range Interpretation Comme nts CHOLESTEROL (test code = 2210) 167 MG/DL TRIGLYCERIDES (test code = 2232) 119 MG/DL HDL CHOLESTEROL (test code = 2220) 44 MG/DL CALC LDL CHOL (test code = 2237) 99 MG/DL RISK RATIO LDL/HDL (test cod e = 2238) 2.25 RATIO [id number] 00:00:00* Test Item Value Reference Range Interpretation Comme nts TSH, THIRD GENERATION (test code = 2821) 4.140 UIU/ML [id number] 00:00:00* Test Item Value Reference Range Interpretation Comme nts TSH, THIRD GENERATION (test code = 2821) 4.140 UIU/ML [id number] 00:00:00* Test Item Value Reference Range Interpretation Comme nts TSH, THIRD GENERATION (test code = 2821) 4.140 UIU/ML THYROID II PROFILE (T3U, T4, T7, TSH)2015-07-02 00:00:00* Test Item Value Reference Range Interpretation Comme nts T3 UPTAKE (test code = 2817) 25.0 % T4 (THYROXINE) (test code = 2819) 9.4 UG/DL CALCULATED T7 (FTI) (test co de = 2820) 2.35 TSH (test code = 2821) 3.8 UIU/ML THYROID II PROFILE (T3U, T4, T7, TSH)2015-07-02 00:00:00* Test Item Value Reference Range Interpretation Comme nts T3 UPTAKE (test code = 2817) 25.0 % T4 (THYROXINE) (test code = 2819) 9.4 UG/DL CALCULATED T7 (FTI) (test co de = 2820) 2.35 TSH (test code = 2821) 3.8 UIU/ML THYROID II PROFILE (T3U, T4, T7, TSH)2015-03-28 00:00:00* Test Item Value Reference Range Interpretation Comme nts T3 UPTAKE (test code = 2817) 26.0 % T4 (THYROXINE) (test code = 2819) 9.0 UG/DL CALCULATED T7 (FTI) (test co de = 2820) 2.34 TSH (test code = 2821) 2.0 UIU/ML THYROID II PROFILE (T3U, T4, T7, TSH)2015-03-28 00:00:00* Test Item Value Reference Range Interpretation Comme nts T3 UPTAKE (test code = 2817) 26.0 % T4 (THYROXINE) (test code = 2819) 9.0 UG/DL CALCULATED T7 (FTI) (test co de = 2820) 2.34 TSH (test code = 2821) 2.0 UIU/ML
[2023-08-31 11:01] LABS: SARS-CoV-2 Antigen Rapid Res Negative (Negative)
--- NOTE | 2023-08-31 11:20 | EDPHYS ---
Physician Documentation [facility] Name: Mayra Gallo Age: 48 yrs Sex: Female : 1975 Arrival Date: 08/31/2023 Time: 10:14 Bed 7 Private MD: ED Physician Sim Cleary HPI: 08/31 11:20 This 48 yrs old Female presents to ER via Ambulatory with complaints of Flu ms3 Symptoms. 11:20 48-year-old female with past medical history of brain bleed, hypothyroidism presents to [facility] the emergency department for fever, cough, sore throat, body aches that began this morning. Patient states her pain is a 7/10. Patient denies any alleviating or inciting factors. Historical: - Allergies: 10:22 No Known Drug Allergies; hb - PMHx: 10:22 Brain bleed; Hypothyroidism; hb - PSHx: 10:22 brain surgery; hb - Immunization history:: Adult Immunizations up to date. - Social history:: Smoking status: Patient denies any tobacco usage or history of. ROS: 11:20 Constitutional: Negative for fever, and chills. Neck: Negative for injury, pain, and ms3 swelling, Cardiovascular: Negative for chest pain, and palpitations. Abdomen/GI: Negative for abdominal pain, nausea, vomiting, diarrhea, and constipation, MS/Extremity: Negative for injury and deformity, Skin: Negative for injury, rash, and discoloration, 11:20 ENT: Positive for sore throat, 11:20 Respiratory: Positive for cough, Exam: 11:20 Constitutional: This is a well developed, well nourished patient who is awake, alert, ms3 and in no acute distress. Head/Face: Normocephalic, atraumatic. Neck: Trachea midline, no cervical lymphadenopathy. Supple, full range of motion without nuchal rigidity, or vertebral point tenderness. No Meningismus. Chest/axilla: Normal chest wall appearance and motion. Nontender with no deformity. 11:20 Back: No spinal tenderness. No costovertebral tenderness. Full range of motion. 11:20 Cardiovascular: Rate: tachycardic, Rhythm: regular, Pulses: no pulse deficits are appreciated, Vital Signs: 10:21 BP 123 / 83; Pulse 149; Resp 18; Temp 99.3(O); Pulse Ox 96% on R/A; Weight 68.04 kg; hb Height 5 ft. 2 in. ; Pain 0/10; 11:24 BP 126 / 79; Pulse 122; Resp 18; Pulse Ox 97% on R/A; ld1 10:21 Body Mass Index 27.44 (68.04 kg, 157.48 cm) hb 10:21 Pain Scale: Adult hb MDM: 10:32 Patient medically screened. ms3 11:20 Differential diagnosis: flu, URI. Data reviewed: vital signs, nurses notes, lab test ms3 result(s), and as a result, I will discharge patient. Care significantly affected by the following Social Determinants of Health: Poor access to healthcare and/or lack of insurance. Counseling: I had a detailed discussion with the patient and/or guardian regarding the historical points, exam findings, and any diagnostic results supporting the discharge/admit diagnosis, lab results, the need for outpatient follow up, to return to the emergency department if symptoms worsen or persist or if there are any questions or concerns that arise at home. Special discussion: I discussed with the patient/guardian in detail that at this point there is no indication for admission to the hospital. It is understood, however, that if the symptoms persist or worsen the patient needs to return immediately for re-evaluation. ED course: Discussed positive flu results with patient. Patient to follow-up with primary care physician in 2 to 3 days. Patient understands agrees with plan. All questions were answered. Return precautions discussed include worsening symptoms, or any other concerns. 08/31 10:33 Order name: SARS RAPID; Complete Time: 11:13 ms3 08/31 10:33 Order name: Flu; Complete Time: 11:13 ms3 Administered Medications: No medications were administered Disposition Summary: 08/31/23 11:20 Discharge Ordered Notes: Location: Home ms3 Condition: Stable ms3 Diagnosis - Influenza due to identified novel influenza A virus ms3 Followup: ms3 - With: Kali Rosas DO - When: 2 - 3 days - Reason: Recheck today's complaints Discharge Instructions: - Discharge Summary Sheet ms3 - Influenza, Adult ms3 Forms: - Medication Reconciliation Form ms3 - Thank You Letter ms3 - Antibiotic Education ms3 - Prescription Opioid Use ms3 - Patient Portal Instructions ms3 - Leadership Thank You Letter ms3 - Work release form bc6 Prescriptions: - Tamiflu 75 mg Oral capsule - take 1 tablet ORAL route every 12 hours for 5 days; 10 tablet; Refills: 0, ms3 Product Selection Permitted Signatures: Dispatcher [employer] Victorina Marcano RN RN Sim Wilson, DO ms3
--- NOTE | 2023-08-31 11:20 | ER ---
Nurse's Notes [facility] Name: Mayra Gallo Age: 48 yrs Sex: Female : 1975 Arrival Date: 08/31/2023 Time: 10:14 Bed 7 Private MD: Diagnosis: Influenza due to identified novel influenza A virus Presentation: 08/31 10:21 Chief complaint: Patient states: Cough, congestion, fatigue, high fever started today. hb Some nausea. Coronavirus screen: Vaccine status: Patient reports receiving the 2nd dose of the covid vaccine. Client denies travel out of the [place] in the last 14 days. congestion, cough unrelated to allergies, fatigue, fever, muscle pain, Client presents with at least one sign or symptom that may indicate coronavirus-19. Standard/surgical mask placed on the client. Ebola Screen: Patient denies travel to an Ebola-affected area in the 21 days before illness onset. Initial Sepsis Screen: Does the patient meet any 2 criteria? HR > 90 bpm. No. Patient's initial sepsis screen is negative. Does the patient have a suspected source of infection? Yes: Productive cough/pneumonia. Risk Assessment: Do you want to hurt yourself or someone else? Patient reports no desire to harm self or others. Onset of symptoms was August 31, 2023. 10:21 Method Of Arrival: Ambulatory hb 10:21 Acuity: JOE 3 hb Historical: - Allergies: 10:22 No Known Drug Allergies; hb - PMHx: 10:22 Brain bleed; Hypothyroidism; hb - PSHx: 10:22 brain surgery; hb - Immunization history:: Adult Immunizations up to date. - Social history:: Smoking status: Patient denies any tobacco usage or history of. Screenin:50 [facility] ED Fall Risk Assessment (Adult) Score/Fall Risk Level 0 - 2 = Low Risk nj1 Oriented to surroundings, Maintained a safe environment, Hourly rounding (assess needs \T\ fall precautionary measures) done. Abuse screen: Denies threats or abuse. Denies injuries from another. Nutritional screening: No deficits noted. Tuberculosis screening: No symptoms or risk factors identified. Assessment: 10:45 General: Appears in no apparent distress. comfortable, Behavior is calm, cooperative, nj1 appropriate for age. Pain: Complains of pain in back. Neuro: Level of Consciousness is awake, alert, obeys commands, Oriented to person, place, time, situation, Reports Fatigue. Cardiovascular: Patient's skin is warm and dry. Respiratory: Airway is patent Respiratory effort is even, unlabored. 10:45 Respiratory: Reports cough that is. nj1 11:24 Reassessment: Patient appears in no apparent distress at this time. No changes from ld1 previously documented assessment. Patient and/or family updated on plan of care and expected duration. Pain level reassessed. Patient is alert, oriented x 3, equal unlabored respirations, skin warm/dry/pink. Vital Signs: 10:21 BP 123 / 83; Pulse 149; Resp 18; Temp 99.3(O); Pulse Ox 96% on R/A; Weight 68.04 kg; hb Height 5 ft. 2 in. ; Pain 0/10; 11:24 BP 126 / 79; Pulse 122; Resp 18; Pulse Ox 97% on R/A; ld1 10:21 Body Mass Index 27.44 (68.04 kg, 157.48 cm) hb 10:21 Pain Scale: Adult hb ED Course: 10:21 Patient arrived in ED. hb 10:22 Triage completed. hb 10:22 Arm band placed on Patient placed in an exam room, on a stretcher. hb 10:23 Sim Cleary DO is Attending Physician. ms3 10:23 Brittney Cleary, MANUELA is Primary Nurse. ld1 10:51 Patient has correct armband on for positive identification. Bed in low position. Call nj1 light in reach. Provided Education on: call light, fall precautions. 11:19 Kali Rosas DO is Referral Physician. ms3 11:25 No provider procedures requiring assistance completed. Patient did not have IV access ld1 during this emergency room visit. Administered Medications: No medications were administered Medication: 11:25 VIS not applicable for this client. ld1 Outcome: 11:20 Discharge ordered by MD. ms3 11:25 Discharged to home ambulatory, ld1 11:25 Condition: good 11:25 Discharge instructions given to patient, Instructed on discharge instructions, follow up and referral plans. medication usage, Demonstrated understanding of instructions, follow-up care, medications, Prescriptions given X 1, 11:25 Patient left the ED. ld1 Signatures: Victorina Petit RN RN Sim Cleary DO DO ms3 Brittney Cleary RN RN ld1 Jessica Sierra RN RN nj1 Corrections: (The following items were deleted from the chart) 10:50 10:45 Neuro: Level of Consciousness is awake, alert, obeys commands, Oriented to nj1 person, place, time, situation, nj1
[2023-08-31 12:10] VITALS: BP 126/79; TEMP 99.3; O2SAT 97
== END 2023-08-31 11:25 | disposition home or self-care (01) ==
LOC: ER 10:14
DX: J10.1 Influenza due to other identified influenza virus with other respiratory manifestations (principal); Z11.52 Encounter for screening for COVID-19
CPT/HCPCS: 36415; 87804; 87811

== ENCOUNTER 2024-06-06 12:58 | Emergency (ER) | payer SELFPAY ==
--- OUTSIDE RECORDS SUMMARY | 2024-06-06 13:02 | XMS REPORT | Continuity of Care Document ---
Author Name Unknown Address [address] [facility] [address] [place] [address] [facility] thconnect Address [address] [facility]. 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 Role Phone Diane Crump Primary Care Physician Mario Ramirez MD Attending Clinician Lab, Ang - Db Attending Clinician Unavailable MARIO RAMIREZ Attending Clinician Unavail able MARIO RAMIREZ Attending Clinician Unavail able Doctor Unassigned, [place] Attending Clinician U navailable MARIO RAMIREZ Admitting Clinician Unavail able Problems Condition Name Condition Details Condition Category Status Onset Date Resolution Date Last Treatment Date Treating Clinician Comments Source H/O aneurysm H/O aneurysm Disease Active 01-28 00:00: 00 [facility] Memory changes Memory changes Disease Active 01-28 00:00: 00 [facility] High cholestero l High cholestero l Disease Active 12-24 00:00: 00 [facility] History of stroke History of stroke Disease Active 12-24 00:00: 00 [facility] Family history of brain aneurysm Family history of brain aneurysm Disease Active 12-24 00:00: 00 [facility] General counseling and advice for contracept aimee management General counseling and advice for contracept aimee management Disease Active 12-24 00:00: 00 [facility] Hypothyroi d Hypothyroi d Disease Active 12-24 00:00: 00 [facility] Allergies, Adverse Reactions, Alerts Allergy Name Allergy Type Status Severity Reaction(s) Onset Date Inactive Date Treating Clinician Comments Source none (Not Checked) Propi ty to adverse reaction to drug Active 12-25 00:00: 00 Nilo Hathaway NO KNOWN ALLERGIE S Drug Class Active [facility] Social History Social Habit Start Date Stop Date Quantity Comments Source Exposure to SARS-CoV-2 (event) 2022-06-26 00:00:00 2022-07-06 09:37:00 Not sure [facility] Alcohol intake 2016-01-29 00:00:00 2016-01-29 00:00:00 0 /d [facility] Sex Assigned At 1975 00:00:00 1975 00:00:00 [facility] Smoking Status Start Date Stop Date Source Never smoked tobacco [facility] Medications Ordered Medication Name Filled Medication Name Start Date Stop Date Current Medication? Ordering Clinician Indication Dosage Frequency Signature (SIG) Comments Components Source levothyroxi ne 100 mcg tablet 04-04 00:00: 00 Yes 1mcg Nilo Hathaway levothyroxi ne 100 mcg tablet 12-27 00:00: 00 Yes 1mcg Nilo Hathaway TAKE 1 CAPSULE BY MOUTH EVERY 12 HOURS FOR 5 DAYS 2022-09 00:00: 00 Yes Nilo Hathaway TAKE 1 TABLET DAILY. 2022-09 00:00: 00 01-01 00:00 :00 No 88 Nilo Hathaway TAKE 1 TABLET DAILY. 2022-09 00:00: 00 01-01 00:00 :00 No 75 Nilo Hathaway APPLY TO AFFECTED AREAS AT THE MOST 4 TIMES A DAY TOPICALLY 2022-0917 00:00: 00 Yes 1 Nilo Hathaway TAKE 1 TABLET EVERY 12 HOURS DAILY. 2022-09 00:00: 00 01-01 00:00 :00 No 500 Nilo Hathaway TAKE 1 CAPSULE BY MOUTH ONCE DAILY 6-02 00:00: 00 01-01 00:00 :00 No 5 Nilo Hathaway TAKE 1 TABLET DAILY. -24 00:00: 00 01-01 00:00 :00 No 75 Nilo Hathaway Dose Unknown 2021-09 1- 00:00: 00 No Dose Unknown 2021-09 00:00: 00 01-01 00:00 :00 No Nilo Hathaway rosuvastati n (CRESTOR) 10 mg tablet 2021-0918 10:25: 19 Yes 10mg Take 10 mg by mouth at bedtime. [facility] levothyroxi ne (SYNTHROID) 75 mcg tablet 2021-09 10:25: 19 Yes 75ug Take 75 mcg by mouth every morning. [facility] Dose Unknown 04-20 00:00: 00 No Dose Unknown 04-20 00:00: 00 No Dose Unknown 04-20 00:00: 00 Yes Nilo Hathaway Dose Unknown 04-20 00:00: 00 Yes Nilo Hathaway Dose Unknown 04-17 00:00: 00 No Dose Unknown 04-17 00:00: 00 Yes Nilo Hathaway hydroxyzine HCl 25 mg tablet 2 00:00: 00 Yes 1mg Nilo Hathaway levothyroxi ne 75 mcg capsule 2 00:00: 00 Yes 1mcg Nilo Hathaway Dose Unknown 2 00:00: 00 No Dose Unknown 2 00:00: 00 No Dose Unknown 8 00:00: 00 Yes Nilo Hathaway Dose Unknown 8- 00:00: 00 Yes Nilo Hathaway Dose Unknown 8 00:00: 00 No Dose Unknown 8 00:00: 00 No hydroxyzine HCl 25 mg tablet 04-13 00:00: 00 Yes 1mg Nilo Hathaway hydroxyzine HCl 25 mg tablet 04-13 00:00: 00 No 1mg cholecalcif tessie (vitamin D3) 1,250 mcg (50,000 unit) tablet 5-25 00:00: 00 Yes 1(50,00 0 unit) Nilo Hathaway Dose Unknown 2021-0 5-25 00:00: 00 No levothyroxi ne 75 mcg capsule 2020-0 2-05 00:00: 00 Yes 1mcg Nilo Hathaway levothyroxi ne 75 mcg capsule 2020-0 2-05 00:00: 00 No 1mcg meclizine 25 mg tablet 2019-0 7-23 00:00: 00 Yes 1mg Nilo Hathaway meclizine 25 mg tablet 2019-0 7-23 00:00: 00 No 1mg levothyroxi ne 75 mcg capsule 2019-0 7-20 00:00: 00 Yes 1mcg Nilo Hathaway levothyroxi ne 75 mcg capsule 2019-0 7-20 00:00: 00 No 1mcg mupirocin 2 % topical ointment 2019-0 6-19 00:00: 00 Yes 1% Nilo Hathaway hydroxyzine HCl 25 mg tablet 2019-0 6-19 00:00: 00 Yes 1mg Nilo Hathaway mupirocin 2 % topical ointment 2019-0 6-19 00:00: 00 No 1% hydroxyzine HCl 25 mg tablet 2019-0 6-19 00:00: 00 No 1mg levothyroxi ne 75 mcg capsule 2019-0 4-20 00:00: 00 Yes 1mcg Nilo Hathaway levothyroxi ne 75 mcg capsule 2019-0 4-20 00:00: 00 No 1mcg ibuprofen 600 mg tablet 2019-0 4-18 00:00: 00 Yes 1mg Nilo Hathaway cephalexin 500 mg tablet 2019-0 4-18 00:00: 00 Yes 1mg Nilo Hathaway ibuprofen 600 mg tablet 2019-0 4-18 00:00: 00 No 1mg cephalexin 500 mg tablet 2019-0 4-18 00:00: 00 No 1mg ondansetron 4 mg disintegrat ing tablet 2019-0 3-16 00:00: 00 Yes 1mg Nilo Hathaway meclizine 25 mg tablet 2019-0 3-16 00:00: 00 Yes 1mg Nilo Hathaway levothyroxi ne 75 mcg capsule 2019-0 3-16 00:00: 00 Yes 1mcg Nilo Hathaway ondansetron 4 mg disintegrat ing tablet 2019-0 3-16 00:00: 00 No 1mg meclizine 25 mg tablet 12-02 00:00: 00 No 1mg levothyroxi ne 75 mcg capsule 12-02 00:00: 00 No 1mcg Debrox 6.5 % ear drops 11-28 00:00: 00 Yes 5% Nilo Hathaway amoxicillin 500 mg capsule 11-28 00:00: 00 Yes 1mg Nilo Hathaway Debrox 6.5 % ear drops 11-28 00:00: 00 No 5% amoxicillin 500 mg capsule 11-28 00:00: 00 No 1mg Debrox 6.5 % ear drops 01-09 00:00: 00 Yes 5% Nilo Hathaway Debrox 6.5 % ear drops 01-09 00:00: 00 No 5% rosuvastati n (CRESTOR) 10 mg tablet 01-28 15:34: 27 Yes 10mg Take 10 mg by mouth at bedtime. [facility] levothyroxi ne (SYNTHROID) 75 mcg tablet 01-28 15:34: 27 Yes 75ug Take 75 mcg by mouth every morning. [facility] levothyroxi ne 75 mcg capsule 2014-09 00:00: 00 Yes 1mcg Nilo Hathaway levothyroxi ne 75 mcg capsule 2014-09 00:00: 00 No 1mcg Immunizations Ordered Immunization Name Filled Immunization Name Date Status Comments Source Td (adult) preservative Td (adult) preservative 2024-05-02 00:00:00 Completed Nilo Concepción Rivas SHINGRIX VACCINE SHINGRIX VACCINE 2024-05-02 00:00:00 Completed Nilo Concepción Hathaway Vital Signs Vital Name Observation Time Observation Value Comments S lynn Systolic blood pressure 2022-07-06 15:11:00 113 mm[Hg] [place] [facility] Diastolic blood pressure 2022-07-06 15:11:00 76 mm[Hg] [place] [facility] Body height 2022-07-06 15:11:00 160 cm [facility] Body weight 2022-07-06 15:11:00 70.761 kg [facility] BMI 2022-07-06 15:11:00 27.63 kg/m2 [facility] Oxygen saturation in Arterial blood by Pulse oximetry 2022-07-06 15:11:00 96 /min [facility] BP Systolic 2024-05-02 15:04:00 101 mm[Hg] Step hen F Rivas BP Diastolic 2024-05-02 15:04:00 68 mm[Hg] Rayshawn phen F Rivas Weight Measured 2024-05-02 15:04:00 148.40 pounds Nilo F Rivas Height Measured 2024-05-02 15:04:00 62.00 inches Nilo F Rivas Body Temperature 2024-05-02 15:04:00 Nilo F Rivas Heart Rate 2024-05-02 15:04:00 94.00 /min Maribel en F Rivas Respiratory Rate 2024-05-02 15:04:00 Nilo F Rivas BP Systolic 2024-04-26 09:18:00 Step hen F Rivas BP Diastolic 2024-04-26 09:18:00 [place]ayshawn phen F Rivas Weight Measured 2024-04-26 09:18:00 Nilo F Rivas Height Measured 2024-04-26 09:18:00 Nilo F Rivas Body Temperature 2024-04-26 09:18:00 Nilo F Rivas Heart Rate 2024-04-26 09:18:00 Maribel en F Rivas Respiratory Rate 2024-04-26 09:18:00 Nilo F Irvas BP Systolic 2024-04-04 10:37:00 92 mm[Hg] Step hen F Rivas BP Diastolic 2024-04-04 10:37:00 63 mm[Hg] Rayshawn phen F Rivas Weight Measured 2024-04-04 10:37:00 150.80 pounds Nilo F Rivas Height Measured 2024-04-04 10:37:00 62.00 inches Nilo F Rivas Body Temperature 2024-04-04 10:37:00 97.70 degrees Nilo F Rivas Heart Rate 2024-04-04 10:37:00 89.00 /min Maribel en F Rivas Respiratory Rate 2024-04-04 10:37:00 16.00 /min Nilo F Rivas BP Systolic 2023-12-26 08:27:00 103 mm[Hg] Step hen F Rivas BP Diastolic 2023-12-26 08:27:00 69 mm[Hg] [place]hawn phen F Rivas Weight Measured 2023-12-26 08:27:00 157.00 pounds Nilo F Rivas Height Measured 2023-12-26 08:27:00 62.00 inches Nilo F Rivas Body Temperature 2023-12-26 08:27:00 98.30 degrees Nilo F Rivas Heart Rate 2023-12-26 08:27:00 69.00 /min Maribel en F Rivas Respiratory Rate 2023-12-26 08:27:00 Nilo F Rivas BP Systolic 2023-12-26 08:20:00 Step hen F Rivas BP Diastolic 2023-12-26 08:20:00 [place]hawn phen F Rivas Weight Measured 2023-12-26 08:20:00 Nilo F Rivas Height Measured 2023-12-26 08:20:00 62.00 inches Nilo F Rivas Body Temperature 2023-12-26 08:20:00 Nilo F Rivas Heart Rate 2023-12-26 08:20:00 Maribel en F Rivas Respiratory Rate 2023-12-26 08:20:00 Nilo F Rivas BP Systolic 2023-08-30 10:38:00 103 mm[Hg] Step hen F Rivas BP Diastolic 2023-08-30 10:38:00 72 mm[Hg] Rayshawn phen F Rivas Weight Measured 2023-08-30 10:38:00 157.60 pounds Nilo F Rivas Height Measured 2023-08-30 10:38:00 62.00 inches Nilo F Rivas Body Temperature 2023-08-30 10:38:00 97.40 degrees Nilo F Rivas Heart Rate 2023-08-30 10:38:00 76.00 /min Maribel en F Rivas Respiratory Rate 2023-08-30 10:38:00 Nilo F Rivas BP Systolic 2023-07-11 15:46:00 94 mm[Hg] Step hen F Rivas BP Diastolic 2023-07-11 15:46:00 66 mm[Hg] Rayshawn phen F Rivas Weight Measured 2023-07-11 15:46:00 158.00 pounds Nilo F Rivas Height Measured 2023-07-11 15:46:00 62.00 inches Nilo F Rivas Body Temperature 2023-07-11 15:46:00 97.40 degrees Nilo F Rivas Heart Rate 2023-07-11 15:46:00 93.00 /min Maribel en F Rivas Respiratory Rate 2023-07-11 15:46:00 Nilo F Rivas BP Systolic 2023-07-05 16:45:00 103 mm[Hg] Step hen F Rivas BP Diastolic 2023-07-05 16:45:00 68 mm[Hg] Rayshawn phen F Rivas Weight Measured 2023-07-05 16:45:00 156.00 pounds Nilo F Rivas Height Measured 2023-07-05 16:45:00 62.00 inches Nilo F Rivas Body Temperature 2023-07-05 16:45:00 97.70 degrees Nilo F Rivas Heart Rate 2023-07-05 16:45:00 92.00 /min Maribel en F Rivas Respiratory Rate 2023-07-05 16:45:00 Nilo F Rivas BP Systolic 2023-03-03 08:33:00 110 mm[Hg] Step hen F Rivas BP Diastolic 2023-03-03 08:33:00 74 mm[Hg] Rayshawn phen F Rivas Weight Measured 2023-03-03 08:33:00 151.60 pounds Nilo F Rivas Height Measured 2023-03-03 08:33:00 62.00 inches Nilo F Rivas Body Temperature 2023-03-03 08:33:00 98.10 degrees Nilo F Rivas Heart Rate 2023-03-03 08:33:00 78.00 /min Maribel en F Rivas Respiratory Rate 2023-03-03 08:33:00 Nilo F Rivas BP Systolic 2023-02-18 09:44:00 106 mm[Hg] Step hen F Rivas BP Diastolic 2023-02-18 09:44:00 69 mm[Hg] Rayshawn phen F Rivas Weight Measured 2023-02-18 09:44:00 152.80 pounds Nilo F Rivas Height Measured 2023-02-18 09:44:00 62.00 inches Nilo F Rivas Body Temperature 2023-02-18 09:44:00 97.90 degrees Nilo F Rivas Heart Rate 2023-02-18 09:44:00 82.00 /min Maribel en F Rivas Respiratory Rate 2023-02-18 09:44:00 Nilo F Rivas BP Systolic 2022-07-29 08:19:00 106 mm[Hg] BP [...] Procedures Procedure Date / Time Performed Performing Clinician Source [id number] Ultrasound, Soft Tissues Of Head And Neck (eg, Thyroid, Parathyroid, Parotid), Real Time With Image Documentation 2023-12-29 00:00:00 Nilo Hathaway MR BRAIN WO CONTRAST 2022-06-29 16:46:[address] [facility] ASSIGNMENT OF BENEFITS 2022-06-29 14:25:57 Docto r Unassigned, [place] [facility] Plan of Care Planned Activity Planned Date Details Comments Source Goal Plan of Care Note [code = 48404-4] Goal Plan of Care Note [code = 06124-0] Goal Plan of Care Note [code = 96446-1] Goal Plan of Care Note [code = 57850-4] Goal Plan of Care Note [code = 67450-5] Goal Plan of Care Note [code = 89673-4] Goal Plan of Care Note [code = 21969-5] Goal Plan of Care Note [code = 12823-7] Goal Plan of Care Note [code = 91874-0] Goal Plan of Care Note [code = 64652-3] Goal Plan of Care Note [code = 01612-8] Goal Plan of Care Note [code = 62010-2] Goal Plan of Care Note [code = 05237-2] Goal Plan of Care Note [code = 23851-8] Goal Plan of Care Note [code = 07776-2] Goal Plan of Care Note [code = 77852-4] Goal Plan of Care Note [code = 69517-5] Goal Plan of Care Note [code = 78901-3] Goal Plan of Care Note [code = 07164-4] Goal Plan of Care Note [code = 88398-7] Goal Plan of Care Note [code = 88952-6] Goal Plan of Care Note [code = 70765-9] Goal Plan of Care Note [code = 36568-2] Goal Plan of Care Note [code = 75435-9] Goal Plan of Care Note [code = 30543-6] Goal Plan of Care Note [code = 54608-4] Goal Plan of Care Note [code = 09167-7] Goal Plan of Care Note [code = 50469-1] Goal Plan of Care Note [code = 82140-8] Goal Plan of Care Note [code = 08255-9] Goal Plan of Care Note [code = 18857-0] Goal Plan of Care Note [code = 29882-0] Goal Plan of Care Note [code = 03692-8] Goal Plan of Care Note [code = 92208-5] Goal Plan of Care Note [code = 96986-4] Goal Plan of Care Note [code = 13973-7] Goal Plan of Care Note [code = 58288-0] Encounters Start Date/Time End Date/Time Encounter Type Admission Type Attending [facility] Care Department Encounter ID Source 2024-05-02 14:59:21 2024-05-02 14:59:21 Outpatient [facility] 14 Nilo Beebe Rivas 2024-05-02 00:00:00 2024-05-02 00:00:00 Outpatient Visit [facility] [id number] Nilo Beebe Rivas 2024-04-26 09:25:18 2024-04-26 09:25:18 Outpatient [facility] [id number] Nilo F Rivas 2024-04-04 10:36:40 2024-04-04 10:36:40 Outpatient [facility] [id number] Nilo F Rivas 2023-12-29 10:43:37 2023-12-29 10:43:37 Outpatient [facility] S[facility] [id number] Nilo Hathaway 2023-12-26 08:19:16 2023-12-26 08:19:16 Outpatient [facility] SFA [id number] Nilo Hathaway 2023-11-10 14:38:03 2023-11-10 14:38:03 Outpatient [facility] SFA [id number] Nilo Hathaway 2023-08-30 10:31:38 2023-08-30 10:31:38 Outpatient SFA SFA [id number] Nilo Hathaway 2023-07-11 15:37:34 2023-07-11 15:37:34 Outpatient SFA SFA 1023 Nilo Hathaway 2023-07-06 08:56:19 2023-07-06 08:56:19 Outpatient SFA SFA [id number] Nilo Hathaway 2023-07-05 16:39:34 2023-07-05 16:39:34 Outpatient SFA SFA 1017 Nilo Hathaway 2023-03-03 14:33:33 2023-03-03 14:33:33 Outpatient SFA SFA [id number] Nilo Hathaway 2023-02-18 09:37:52 2023-02-18 09:37:52 Outpatient SFA SFA [id number] Nilo Hathaway 2022-11-11 08:19:07 2022-11-11 08:19:07 Outpatient SFA SFA 3 Nilo Hathaway 2022-09-07 00:00:00 2022-09-07 00:00:00 Telephone Mario Ramirez [facility] [id number] 350.1.13.10 4.2.7.2.686 [id number] [facility] 2022-08-17 08:41:39 2022-08-17 08:41:39 Outpatient SFA SFA [id number] Nilo Hathawya 2022-07-29 08:08:27 2022-07-29 08:08:27 Outpatient SFA SFA [id number] Nilo Hathaway 2022-07-29 00:00:00 2022-07-29 00:00:00 Outpatient Visit [id number] 2022-07-06 10:45:00 2022-07-06 11:00:00 Insurance Manager Visit Lab, Hao Ramirez Mario [facility] 1.840.114 350.1.13.10 4.2.7.2.686 [id number] [facility] 2022-07-06 10:00:00 2022-07-06 10:36:22 Outpatient MARIO PAL [facility] [id number] [facility] 2022-07-06 10:00:00 2022-07-06 10:36:22 Office Visit James Mario Crespo [facility] 1.84.114 350.1.13.10 4.2.7.2.686 [id number] [facility] 2022-06-29 09:29:26 2022-06-29 23:59:00 Outpatient MARIO PAL [facility] [id number] [facility] 2022-06-29 09:29:26 2022-06-29 23:59:00 Hospital Encounter James Mario Zak [facility] 1.114 350.1.13.10 4.2.7.2.686 [id number] [facility] 2022-06-29 00:00:00 2022-06-29 00:00:00 Orders Only Doctor Unassigned, [place] [facility] 1.114 350.1.13.10 4.2.7.2.686 [id number] [facility] 2022-05-04 10:00:00 2022-05-04 10:00:00 Office Visit Mario Ramirez [facility] JESUS?[facility] 1.2.840.114 350.1.13.10 4.2.7.2.686 [id number] [facility] 2022-05-04 10:00:00 2022-05-04 09:30:52 Outpatient R MARIO RAMIREZ [facility] [id number] [facility] 2022-05-04 10:00:00 2022-05-04 09:30:52 Outpatient MARIO PAL [facility] [id number] [facility] 2022-05-04 00:00:00 2022-05-04 00:00:00 [facility] 1.2.840.114 350.1.13.10 4.2.7.2.686 [id number] [facility] 2022-05-04 00:00:00 2022-05-04 00:00:00 Orders Only Doctor Unassigned, [place] [facility] 1.2.840.114 350.1.13.10 4.2.7.2.686 [id number] [facility] 2022-05-04 00:00:00 2022-05-04 00:00:00 Telephone Mario Ramirez [facility] JESUS?[facility] 1.2.840.114 350.1.13.10 4.2.7.2.686 [id number] [facility] Results Test Description Test Time Test Comments Results Result Co mments Source Nilo Beebe AustinHEPATITIS PROFILE (A,B,C)2024-05-04 00:00:00* Test Item Value Reference Range Interpretation Comme nts HEPATITIS A TOTAL AB (test c ode = 2725) NON-REACTIVE HEPATITIS B SURF AG (test co de = 0991) NON-REACTIVE HEP B CORE TOTAL AB (test co de = 4589) NON-REACTIVE HEPATITIS B SURFACE AB (test code = 2737) NON-REACTIVE HEPATITIS C ANTIBODY (test c ode = 0789) NON-REACTIVE INTERPRETATION HEPATITIS A: (test code = 2552) (NOTE) INTERPRETATION HEPATITIS B: (test code = 34717) (NOTE) INTERPRETATION HEPATITIS C: (test code = 54797) (NOTE) Nilo HathawayCT/NG, NAAT, [id number] 00:00:00* Test Item Value Reference Range Interpretation Comme nts CHLAMYDIA, NAAT, URINE (test code = 46760) NEGATIVE GONORRHEA, NAAT, URINE (test code = 58136) NEGATIVE Nilo HathawayHIV 1/2 4TH GEN, RFLX [id number] 00:00:00* Test Item Value Reference Range Interpretation Comme nts HIV 1/2 4TH GEN, RFLX CONF ( test code = 3514) NON-REACTIVE Nilo HathawayRPR REFLEX TO T. PALLIDUM - [id number] 00:00:00* Test Item Value Reference Range Interpretation Comme nts RPR (test code = 59771) NON-REACTIVE RPR TITER (test code = 3500) NOT INDIC. TITER Nilo HathawayOccult Blood, Fecal, [id number] 00:00:00* Test Item Value Reference Range Interpretation Comme nts Occult Blood, Fecal, IA (sukh t code = 04647-0) Negative Nilo Beebe RivasRequest Problem [ADDED]2024-04-11 00:00:00* Test Item Value Reference Range Interpretation Comme nts Request Problem (test code = 359263) TNP Nilo HathawayCOMPREHENSIVE METABOLIC [id number] 00:00:00* Test Item Value Reference Range Interpretation Comme nts GLUCOSE (test code = 2217) 87 MG/DL BUN (test code = 2208) 10 MG/DL CREATININE (test code = 2214) 0.57 MG/DL eGFR (2020 CKD-EPI) (test code = 60683) 111 ML/MIN/1.73 CALC BUN/CREAT (test code = 2235) 18 RATIO SODIUM (test code = 2231) 138 MEQ/L POTASSIUM (test code = 2228) 4.6 MEQ/L CHLORIDE (test code = 2215) 102 MEQ/L CARBON DIOXIDE (test code = 2206) 27 MEQ/L CALCIUM (test code = 2209) 9.2 MG/DL PROTEIN, TOTAL (test code = 2229) 6.9 G/DL ALBUMIN (test code = 2201) 4.2 G/DL CALC GLOBULIN (test code = 2240) 2.7 G/DL CALC A/G RATIO (test code = 2234) 1.6 RATIO BILIRUBIN, TOTAL (test code = 2207) <0.2 MG/DL ALKALINE PHOSPHATASE (test code = 2204) 73 U/L AST (test code = 2218) 19 U/L ALT (test code = 2219) 17 U/L Nilo HathawayLIPID [id number] 00:00:00* Test Item Value Reference Range Interpretation Comme nts CHOLESTEROL (test code = 2210) 158 MG/DL TRIGLYCERIDES (test code = 2232) 92 MG/DL HDL CHOLESTEROL (test code = 2220) 42 MG/DL CALC LDL CHOL (test code = 2237) 97 MG/DL RISK RATIO LDL/HDL (test cod e = 2238) 2.31 RATIO Nilo Vo, THIRD [id number] 00:00:00* Test Item Value Reference Range Interpretation Comme nts TSH, THIRD GENERATION (test code = 2821) <0.010 UIU/ML Nilo CruzSANTOS T4 (THYROXINE)2024-04-05 00:00:00* Test Item Value Reference Range Interpretation Comme nts FREE T4 (THYROXINE) (test co de = 2823) 2.25 NG/DL Nilo WhiteH, THIRD [id number] 05:38:27* Test Item Value Reference Range Interpretation Comme nts TSH, THIRD GENERATION (test code = 2821) 8.360 UIU/ML 0.400-4.100 H UNLESS OTHERWISE INDICATED, ALL TESTING PERFORMED AT [facility] [address] [place] [address] SPINNER OPERATOR: RICK WHITING M.D. CLIA NUMBER [id number] [place]. [id number] TSH, THIRD [id number] 00:00:00* Test Item Value Reference Range Interpretation Comme nts TSH, THIRD GENERATION (test code = 2821) 8.360 UIU/ML Nilo Vo, THIRD [id number] 06:41:19* Test Item Value Reference Range Interpretation Comme shae TSH, THIRD GENERATION (test code = 2821) 8.200 UIU/ML 0.400-4.100 H UNLESS OTHERWISE INDICATED, ALL TESTING PERFORMED AT [facility] [address] [place] [address] SPINNER OPERATOR: RICK WHITING M.D. [place] NUMBER [id number] [facility] [place]. [id number] HEMOGLOBIN [id number] 03:08:03* Test Item Value Reference Range Interpretation Comme shae HEMOGLOBIN A1c (test code = 57406) 5.3 % 4.2-5.6 HEMOGLOBIN [id number] 00:00:00* Test Item Value Reference Range Interpretation Comme shae HEMOGLOBIN A1c (test code = 46535) 5.3 % Nilo Vo, THIRD [id number] 00:00:00* Test Item Value Reference Range Interpretation Comme shae KAHN, THIRD GENERATION (test code = 2821) 8.200 UIU/ML Nilo Celaya (ANTI-NUCLEAR AB) WITH REFLEX [id number] 01:09:29* Test Item Value Reference Range Interpretation Comme shae ANTI-NUCLEAR ANTIBODIES (test code = 3506) NEGATIVE NEGATIVE Methodology is I ndirect Immunofluorescent Assay (IFA) with a titering system using [id number] cells (Hep2 cells transfected with SS-A/Ro). CLOVER PATTERN (REPORTED TITER) (test code = 45756) SEE BELOW HOMOGENEOUS (test code = 68959) NEGATIVE TITER NEGATIVE SPECKLED (test code = 239837) NEGATIVE TITER NEGATIVE DENSE FINE SPECKLED (test code = 41520) NEGATIVE TITER NEGATIVE CENTROMERE (test code = 340098) NEGATIVE TITER NEGATIVE COARSE SPECKLED (test code = 180021) NEGATIVE TITER NEGATIVE DISCRETE NUCLEAR DOTS (test code = 553726) NEGATIVE TITER NEGATIVE NUCLEOLAR (test code = 405445) NEGATIVE TITER NEGATIVE NUCLEAR MEMBRANE (test code = 702489) NEGATIVE TITER NEGATIVE CYTO. RETICULAR (YVONNE) (test code = 034533) NEGATIVE NEGATIVE COMMENTS (test code = 971069) NONE METHOD (test code = 74049) (NOTE) TESTING PERFORME D BY [employer] IFA PLATFORM.THE METHOD INCLUDES A SCREEN THRESHOLD OF 1:80, DIGITIZED AND COMPUTER ALGORITHM-ASSISTED INTERPRETATION OF TITERS AND DIGITAL PATTERNS, AND HEp-2 CELL LINE SUBSTRATE. ADDITIONAL UNUSUAL PATTERNS WILL BE GIVEN COMMENTS.FOR MORE INFORMATION, SEE [email or web address] CLOVER (ANTI-NUCLEAR AB) WITH REFLEX [id number] 00:00:00* Test Item Value Reference Range Interpretation Comme nts ANTI-NUCLEAR ANTIBODIES (sukh t code = 3506) NEGATIVE CLOVER PATTERN (REPORTED TITER) (test code = 92444) SEE BELOW HOMOGENEOUS (test code = 99590) NEGATIVE TITER SPECKLED (test code = 930164) NEGATIVE TITER DENSE FINE SPECKLED (test co de = 72596) NEGATIVE TITER CENTROMERE (test code = 882782) NEGATIVE TITER COARSE SPECKLED (test code = 168679) NEGATIVE TITER DISCRETE NUCLEAR DOTS (test code = 374520) NEGATIVE TITER NUCLEOLAR (test code = 646944) NEGATIVE TITER NUCLEAR MEMBRANE (test code = 942381) NEGATIVE TITER CYTO. RETICULAR (YVONNE) (test code = 089870) NEGATIVE COMMENTS (test code = 967395) NONE METHOD (test code = 08324) (NOTE) Nilo HathawayCCP [id number] 06:11:34* Test Item Value Reference Range Interpretation Comme nts CCP IgG (test code = 42324) <0.5 U/ML <3.0 INTERPRETIVE INFORMATION INTERPRETATION RESULT NEGATIVE <3.0 U/ML POSITIVE >=3.0 U/ML RHEUMATOID FACTOR, [id number] 04:38:41* Test Item Value Reference Range Interpretation Comme nts RHEUMATOID FACTOR, QUANT (te st code = 3502) <10 IU/ML <14 SEDIMENTATION [id number] 04:27:55* Test Item Value Reference Range Interpretation Comme nts SEDIMENTATION RATE (test code = 1017) 24 MM/HOUR 0-20 H UNLESS OTHERW ISE INDICATED, ALL TESTING PERFORMED AT [facility] [address] [place] [address] SPINNER OPERATOR: RICK WHITING M.D. CLIA NUMBER [id number] [place]. [id number] URIC [id number] 04:10:25* Test Item Value Reference Range Interpretation Comme nts URIC ACID (test code = 2233) 3.3 MG/DL 2.7-6.1 RHEUMATOID FACTOR, [id number] 00:00:00* Test Item Value Reference Range Interpretation Comme shae RHEUMATOID FACTOR, QUANT (te st code = 3502) <10 IU/ML Nilo HathawayCCP [id number] 00:00:00* Test Item Value Reference Range Interpretation Comme shae CCP IgG (test code = 67349) <0.5 U/ML Nilo HathawayURIC [id number] 00:00:00* Test Item Value Reference Range Interpretation Comme shae URIC ACID (test code = 2233) 3.3 MG/DL Nilo HathawaySEDIMENTATION [id number] 00:00:00* Test Item Value Reference Range Interpretation Comme nts SEDIMENTATION RATE (test cod e = 1017) 24 MM/HOUR Nilo HathawayTSH, THIRD [id number] 04:24:19* Test Item Value Reference Range Interpretation Comme shae TSH, THIRD GENERATION (test code = 2821) 2.970 UIU/ML 0.400-4.100 LIPID [id number] 04:21:31* Test Item Value Reference Range Interpretation [...] SPECIMENS. FOR MOREINFORMATION, SEE CLIENT ANNOUNCEMENT AT [email or web address] /CalcLDL-C RISK RATIO LDL/HDL (test code = 2238) 2.50 RATIO <3.22 [facility] has i mportant pathology staff changes effective 11/17/2022. New pathology staff will provide uninterrupted, excellent patient care and clinical consultation. See URL: [email or web address]. UNLESS OTHERWISE INDICATED, ALL TESTING PERFORMED AT [facility] [address] [place] [address] SPINNER OPERATOR: STEPHON FRANKLIN M.D. CLIA NUMBER [id number] [facility] [place]. [id number] LIPID [id number] 00:00:00* Test Item Value Reference Range Interpretation Comme nts CHOLESTEROL (test code = 2210) 200 MG/DL TRIGLYCERIDES (test code = 2232) 83 MG/DL HDL CHOLESTEROL (test code = 2220) 52 MG/DL CALC LDL CHOL (test code = 2237) 130 MG/DL RISK RATIO LDL/HDL (test cod e = 2238) 2.50 RATIO Nilo Beebe [id number] 00:00:00* Test Item Value Reference Range Interpretation Comme nts TSH, THIRD GENERATION (test code = 2821) 2.970 UIU/ML Nilo Beebe [id number] 00:00:00* Test Item Value Reference Range Interpretation Comme nts TSH, THIRD GENERATION (test code = 2821) 13.000 UIU/ML Nilo HathawayCOMPREHENSIVE METABOLIC [id number] 05:18:29* Test Item Value Reference Range Interpretation Comme nts GLUCOSE (test code = 2217) 84 MG/DL 70-99 BUN (test code = 2208) 11 MG/DL 6-20 CREATININE (test code = 2214) 0.73 MG/DL 0.60-1.30 eGFR (2020 CKD-EPI) (test code = 48150) 101 ML/MIN/1.73 >60 CALC BUN/CREAT (test code [...] 5-40 UNLESS OTHERWISE INDICATED, ALL TESTING PERFORMED [facility] [employer] [address] [place] [address] SPINNER OPERATOR: STEPHON FRANKLIN M.D. CLIA NUMBER [id number] [facility] [place]. [id number] CBC W/AUTO DIFF WITH [id number] 03:18:03* Test Item Value Reference Range Interpretation [...] 0.00-0.10 ABS NUCLEATED RBCS (test code = 24338) 0.00 K/UL 0.00-0.11 CBC W/AUTO [id number] 00:00:00* Test Item Value Reference Range Interpretation [...] ABS NUCLEATED RBCS (test cod e = 16052) 0.00 K/UL COMPREHENSIVE METABOLIC [id number] 00:00:00* Test Item Value Reference Range Interpretation Comme nts GLUCOSE (test code = 2217) 84 MG/DL BUN (test code = 2208) 11 MG/DL CREATININE (test code = 2214) 0.73 MG/DL eGFR (2020 CKD-EPI) (test code = 92411) 101 ML/MIN/1.73 CALC BUN/CREAT (test code = [...] code = 2219) 17 U/L COMPREHENSIVE METABOLIC [id number] 00:00:00* Test Item Value Reference Range Interpretation Comme nts GLUCOSE (test code = 2217) 84 MG/DL BUN (test code = 2208) 11 MG/DL CREATININE (test code = 2214) 0.73 MG/DL eGFR (2020 CKD-EPI) (test code = 61979) 101 ML/MIN/1.73 CALC BUN/CREAT (test code = [...] ALT (test code = 2219) 17 U/L Nilo HathawayCBC W/AUTO [id number] 00:00:00* Test Item Value Reference Range Interpretation [...] ABS NUCLEATED RBCS (test cod e = 64407) 0.00 K/UL Nilo HathawayLIPID [id number] 01:22:39* Test Item Value Reference Range Interpretation Comme nts CHOLESTEROL (test code = 2210) 226 MG/DL <200 H TRIGLYCERIDES (test code = 2232) 480 MG/DL <150 H HDL CHOLESTEROL (test code = 2220) 41 MG/DL >39 CALC LDL CHOL (test code = 2237) (NOTE) MG/DL <100 UNABLE TO CALCUL ATE A VALID LDL CHOLESTEROL WHEN THE TRIGLYCERIDEVALUE IS GREATER THAN 400 MG/DL. NOTE: CALCULATED LDL IS BASED ON PATRICK-ROBB METHOD WHICHINCLUDES ADJUSTABLE TRIGLYCERIDE:VLDL CHOLESTEROL RATIO.THIS FACTOR VARIES BY MEASURED TRIGLYCERIDE AND NON-HDLCHOLESTEROL CONCENTRATIONS WITH INCREASED CALCULATED LDL SEENIN HIGHER TRIGLYCERIDE OR LOWER NON-HDL SPECIMENS. FOR MOREINFORMATION, SEE CLIENT ANNOUNCEMENT AT [email or web address]/ CalcLDL-C RISK RATIO LDL/HDL (test code = 2238) 3.07 RATIO <3.22 UNABLE TO CAIT CULATE COMPREHENSIVE METABOLIC [id number] 01:22:39* Test Item Value Reference Range Interpretation Comme nts GLUCOSE (test code = 2217) 107 MG/DL 70-99 H BUN (test code = 2208) 15 MG/DL 6-20 CREATININE (test code = 2214) 0.58 MG/DL 0.60-1.30 L eGFR (2020 CKD-EPI) (test code = 36544) 112 ML/MIN/1.73 >60 CALC BUN/CREAT (test code [...] 5-40 UNLESS OTHERWISE INDICATED, [facility] [address] [place] [address] SPINNER OPERATOR: STEPHON FRANKLIN M.D. IA NUMBER [id number] [facility] [place]. [id number] TSH, THIRD [id number] 01:03:53* Test Item Value Reference Range Interpretation Comme nts TSH, THIRD GENERATION (test code = 2821) 3.030 UIU/ML 0.400-4.100 LIPID [id number] 00:00:00* Test Item Value Reference Range Interpretation Comme nts CHOLESTEROL (test code = 2210) 226 MG/DL TRIGLYCERIDES (test code = 2232) 480 MG/DL HDL CHOLESTEROL (test code = 2220) 41 MG/DL CALC LDL CHOL (test code = 2237) (NOTE) MG/DL RISK RATIO LDL/HDL (test cod e = 2238) 3.07 RATIO COMPREHENSIVE METABOLIC [id number] 00:00:00* Test Item Value Reference Range Interpretation Comme nts GLUCOSE (test code = 2217) 107 MG/DL BUN (test code = 2208) 15 MG/DL CREATININE (test code = 2214) 0.58 MG/DL eGFR (2020 CKD-EPI) (test code = 94299) 112 ML/MIN/1.73 CALC BUN/CREAT (test code = [...] ALT (test code = 2219) 16 U/L [id number] 00:00:00* Test Item Value Reference Range Interpretation Comme nts TSH, THIRD GENERATION (test code = 2821) 3.030 UIU/ML LIPID [id number] 00:00:00* Test Item Value Reference Range Interpretation Comme nts CHOLESTEROL (test code = 2210) 226 MG/DL TRIGLYCERIDES (test code = 2232) 480 MG/DL HDL CHOLESTEROL (test code = 2220) 41 MG/DL CALC LDL CHOL (test code = 2237) (NOTE) MG/DL RISK RATIO LDL/HDL (test cod e = 2238) 3.07 RATIO Nilo HathawayCOMPREHENSIVE METABOLIC [id number] 00:00:00* Test Item Value Reference Range Interpretation Comme nts GLUCOSE (test code = 2217) 107 MG/DL BUN (test code = 2208) 15 MG/DL CREATININE (test code = 2214) 0.58 MG/DL eGFR (2020 CKD-EPI) (test code = 99481) 112 ML/MIN/1.73 CALC BUN/CREAT (test code = [...] ALT (test code = 2219) 16 U/L Nilo [id number] 00:00:00* Test Item Value Reference Range Interpretation Comme [facility] TSH, THIRD GENERATION (test code = 2821) 3.030 UIU/ML Nilo HathawayHEMOGLOBIN [id number] 05:54:09* Test Item Value Reference Range Interpretation Comme nts HEMOGLOBIN A1c (test code = 60210) 5.5 % 4.2-5.6 CBC W/AUTO DIFF WITH [id number] 04:21:47* Test Item Value Reference Range Interpretation [...] 0.00-0.10 ABS NUCLEATED RBCS (test code = 66682) 0.00 K/UL 0.00-0.11 CBC W/AUTO [id number] 00:00:00* Test Item Value Reference Range Interpretation [...] ABS NUCLEATED RBCS (test cod e = 93470) 0.00 K/UL HEMOGLOBIN [id number] 00:00:00* Test Item Value Reference Range Interpretation Comme nts HEMOGLOBIN A1c (test code = 13700) 5.5 % CBC W/AUTO [id number] 00:00:00* Test Item Value Reference Range Interpretation [...] ABS NUCLEATED RBCS (test cod e = 75804) 0.00 K/UL Nilo Beebe AustinHEMOGLOBIN [id number] 00:00:00* Test Item Value Reference Range Interpretation Comme nts HEMOGLOBIN A1c (test code = 45490) 5.5 % Nilo Beeeb [id number] (COVID-19) by RT-PCR (HIGH RISK)2021-05-20 00:00:00* Test Item Value Reference Range Interpretation Comme nts SARS-CoV-2 INTERPRETATION (t est code = 88407) NEGATIVE SOURCE (test code = 49913) NOT SPECIFIED SARS-CoV-2 (COVID-19) by RT-PCR (HIGH RISK)2021-05-20 00:00:00* Test Item Value Reference Range Interpretation Comme nts SARS-CoV-2 INTERPRETATION (t est code = 57405) NEGATIVE SOURCE (test code = 62106) NOT SPECIFIED Nilo Beebe [id number] (COVID-19) by RT-PCR (HIGH RISK)2021-05-16 00:00:00* Test Item Value Reference Range Interpretation Comme nts SARS-CoV-2 INTERPRETATION (test code = 21627) TEST NOT PERFORMED SOURCE (test code = 96348) TEST NOT PERFORMED SARS-CoV-2 (COVID-19) by RT-PCR (HIGH RISK)2021-05-16 00:00:00* Test Item Value Reference Range Interpretation Comme nts SARS-CoV-2 INTERPRETATION (test code = 22857) TEST NOT PERFORMED SOURCE (test code = 65554) TEST NOT PERFORMED Nilo HathawayCBC W/AUTO [id number] 00:00:00* Test Item Value Reference Range Interpretation [...] ABS NUCLEATED RBCS (test cod e = 79782) 0.00 K/UL CBC W/AUTO [id number] 00:00:00* Test Item Value Reference Range Interpretation [...] ABS NUCLEATED RBCS (test cod e = 50122) 0.00 K/UL Nilo [id number] 00:00:00* Test Item Value Reference Range Interpretation Comme [facility] TSH, THIRD GENERATION (test code = 2821) 3.880 UIU/ML VITAMIN B 12 AND FOLIC [id number] 00:00:00* Test Item Value Reference Range Interpretation Comme [facility] VITAMIN B-12 (test code = 2840) 398 PG/ML FOLIC ACID (test code = 2695) 16.5 UG/L [id number] 00:00:00* Test Item Value Reference Range Interpretation Comme [facility] TSH, THIRD GENERATION (test code = 2821) 3.880 UIU/ML Nilo HathawayVITAMIN D, 25 [id number] 00:00:00* Test Item Value Reference Range Interpretation Comme [facility] VITAMIN D, 25 OH (test code = 4958) 29 NG/ML VITAMIN B 12 AND FOLIC [id number] 00:00:00* Test Item Value Reference Range Interpretation Comme [facility] VITAMIN B-12 (test code = 2840) 398 PG/ML FOLIC ACID (test code = 2695) 16.5 UG/L Nilo HathawayVITAMIN D, 25 [id number] 00:00:00* Test Item Value Reference Range Interpretation Comme nts VITAMIN D, 25 OH (test code = 4958) 29 NG/ML Nilo HathawaySCR MAMM BILATERAL MARICARMEN CAD [id number] 09:50:45 Name: Mayra : 1975 Sex: F - SCR MAMM BILATERAL MARICARMEN CADDIGITALBILATERAL DIGITAL SCREENING MAMMOGRAM 3D/2D WITH CAD: 01/16/2021LINICAL: Asymptomatic. Digital breast tomosynthesis was performed in addition to routine CC and MLO views. Current mammographic images were evaluated by [employer] CAD (computed aided detection) software. Comparison is made to exam dated 12/09/2014 mammogram - [facility]. The tissue of both breasts isextremely dense, which lowers the sensitivity of mammography. There are nodular densities bilaterally that most likely represent benign fibroadenomas, cysts, or nodular breast tissue, however this must be confirmed with ultrasound. No suspicious mass, architectural distortion, malignant type calcification, or lymph node abnormality detected. IMPRESSION: INCOMPLETE: ADDITIONAL IMAGING EVALUATION NEEDEDBilateral ultrasound recommended. Chelsea castro/penmajor:01/21/2021 09:50:45 Swatch Checker: Brittney Cardozo MM, [facility]: Additional Imaging Mammogram BI-R ADS: 0 Incomplete: Additional Imaging Evaluation NeededPAP TEST, THINPREP, [id number] 00:00:00* Test Item Value Reference Range Interpretation Comme nts SOURCE: (test code = 8001) Cervical/Endocervical SLIDES: (test code = 8011) 1 LMP: (test code = 8021) 10/03/2020 SPECIMEN ADEQUACY: (test code = 62173) (NOTE) INTERPRETATION: (test code = 08507) NILM/NO EPITH. ABNORMALITY;SEE BELOW SERVICE STATION HELPER: (test code = 8101) DEONNA Conteh(ASCP)IA C LOCATION: (test code = 96950) (NOTE) CPT: (test code = 8140) (NOTE) HPV HIGH RISK WITH GENOTYPE, [id number] 00:00:00* Test Item Value Reference Range Interpretation Comme nts HPV HIGH RISK INTERP (test c ode = 40628) NEGATIVE HPV 16 (test code = 57947) NEGATIVE HPV 18 (test code = 97356) NEGATIVE HPV, HR, OTHER GENOTYPES (te st code = 67942) NEGATIVE HPV HIGH RISK WITH GENOTYPE, [id number] 00:00:00* Test Item Value Reference Range Interpretation Comme nts HPV HIGH RISK INTERP (test c ode = 61612) NEGATIVE HPV 16 (test code = 67364) NEGATIVE HPV 18 (test code = 55912) NEGATIVE HPV, HR, OTHER GENOTYPES (te st code = 32744) NEGATIVE Nilo PascualP TEST, THINPREP, [id number] 00:00:00* Test Item Value Reference Range Interpretation Comme nts SOURCE: (test code = 8001) Cervical/Endocervical SLIDES: (test code = 8011) 1 LMP: (test code = 8021) 10/03/2020 SPECIMEN ADEQUACY: (test code = 98515) (NOTE) INTERPRETATION: (test code = 43780) NILM/NO EPITH. ABNORMALITY;SEE BELOW SERVICE STATION HELPER: (test code = 8101) DEONNA Conteh(ASCP)IA C LOCATION: (test code = 80764) (NOTE) CPT: (test code = 8140) (NOTE) Nilo [id number] 00:00:00* Test Item Value Reference Range Interpretation Comme nts TSH, THIRD GENERATION (test code = 2821) 2.170 UIU/ML CBC W/AUTO [id number] 00:00:00* Test Item Value Reference Range Interpretation [...] (test code = 1015) 314 K/UL HEMOGLOBIN [id number] 00:00:00* Test Item Value Reference Range Interpretation Comme nts HEMOGLOBIN A1c (test code = 87458) 5.8 % LIPID [id number] 00:00:00* Test Item Value Reference Range Interpretation Comme nts CHOLESTEROL (test code = 2210) 201 MG/DL TRIGLYCERIDES (test code = 2232) 121 MG/DL HDL CHOLESTEROL (test code = 2220) 53 MG/DL CALC LDL CHOL (test code = 2237) 125 MG/DL RISK RATIO LDL/HDL (test cod e = 2238) 2.36 RATIO COMPREHENSIVE METABOLIC [id number] 00:00:00* Test Item Value Reference Range Interpretation Comme nts GLUCOSE (test code = 2217) 88 MG/DL BUN (test code = 2208) 9 MG/DL CREATININE (test code = 2214) 0.58 MG/DL eGFR AMER. (test cod e = 48086) 127 ML/MIN/1.73 eGFR NON- AMER. (test code = 84257) 110 ML/MIN/1.73 CALC BUN/CREAT (test code = [...] ALT (test code = 2219) 17 U/L HEMOGLOBIN [id number] 00:00:00* Test Item Value Reference Range Interpretation Comme nts HEMOGLOBIN A1c (test code = 41141) 5.8 % Nilo Beebe AustinLIPID [id number] 00:00:00* Test Item Value Reference Range Interpretation Comme nts CHOLESTEROL (test code = 2210) 201 MG/DL TRIGLYCERIDES (test code = 2232) 121 MG/DL HDL CHOLESTEROL (test code = 2220) 53 MG/DL CALC LDL CHOL (test code = 2237) 125 MG/DL RISK RATIO LDL/HDL (test cod e = 2238) 2.36 RATIO Nilo HathawayCOMPREHENSIVE METABOLIC [id number] 00:00:00* Test Item Value Reference Range Interpretation Comme nts GLUCOSE (test code = 2217) 88 MG/DL BUN (test code = 2208) 9 MG/DL CREATININE (test code = 2214) 0.58 MG/DL eGFR AMER. (test cod e = 43948) 127 ML/MIN/1.73 eGFR NON- AMER. (test code = 72678) 110 ML/MIN/1.73 CALC BUN/CREAT (test code = [...] ALT (test code = 2219) 17 U/L Nilo [id number] 00:00:00* Test Item Value Reference Range Interpretation Comme nts TSH, THIRD GENERATION (test code = 2821) 2.170 UIU/ML Nilo HathawayCBC W/AUTO [id number] 00:00:00* Test Item Value Reference Range Interpretation [...] COUNT (test code = 1015) 314 K/UL Nilo Beebe [id number] 00:00:00* Test Item Value Reference Range Interpretation Comme nts TSH, THIRD GENERATION (test code = 2821) 1.410 UIU/ML [id number] 00:00:00* Test Item Value Reference Range Interpretation Comme nts TSH, THIRD GENERATION (test code = 2821) 1.410 UIU/ML Nilo Beebe [id number] 00:00:00* Test Item Value Reference Range Interpretation Comme nts TSH, THIRD GENERATION (test code = 2821) 2.780 UIU/ML [id number] 00:00:00* Test Item Value Reference Range Interpretation Comme nts TSH, THIRD GENERATION (test code = 2821) 2.780 UIU/ML Nilo Beebe [id number] 00:00:00* Test Item Value Reference Range Interpretation Comme nts TSH, THIRD GENERATION (test code = 2821) 8.480 UIU/ML COMPREHENSIVE METABOLIC [id number] 00:00:00* Test Item Value Reference Range Interpretation Comme nts GLUCOSE (test code = 2217) 91 MG/DL BUN (test code = 2208) 10 MG/DL CREATININE (test code = 2214) 0.57 MG/DL eGFR AMER. (test cod e = 66151) 129 ML/MIN/1.73 eGFR NON- AMER. (test code = 82011) 111 ML/MIN/1.73 CALC BUN/CREAT (test code = [...] (test code = 2219) 24 U/L LIPID [id number] 00:00:00* Test Item Value Reference Range Interpretation Comme nts CHOLESTEROL (test code = 2210) 203 MG/DL TRIGLYCERIDES (test code = 2232) 114 MG/DL HDL CHOLESTEROL (test code = 2220) 60 MG/DL CALC LDL CHOL (test code = 2237) 121 MG/DL RISK RATIO LDL/HDL (test cod e = 2238) 2.02 RATIO HEMOGLOBIN [id number] 00:00:00* Test Item Value Reference Range Interpretation Comme nts HEMOGLOBIN A1c (test code = 82648) 5.5 % CBC W/AUTO [id number] 00:00:00* Test Item Value Reference Range Interpretation [...] COUNT (test code = 1015) 398 K/UL COMPREHENSIVE METABOLIC [id number] 00:00:00* Test Item Value Reference Range Interpretation Comme nts GLUCOSE (test code = 2217) 91 MG/DL BUN (test code = 2208) 10 MG/DL CREATININE (test code = 2214) 0.57 MG/DL eGFR AMER. (test cod e = 01210) 129 ML/MIN/1.73 eGFR NON- AMER. (test code = 81892) 111 ML/MIN/1.73 CALC BUN/CREAT (test code = [...] ALT (test code = 2219) 24 U/L Nilo Beebe AustinLIPID [id number] 00:00:00* Test Item Value Reference Range Interpretation Comme nts CHOLESTEROL (test code = 2210) 203 MG/DL TRIGLYCERIDES (test code = 2232) 114 MG/DL HDL CHOLESTEROL (test code = 2220) 60 MG/DL CALC LDL CHOL (test code = 2237) 121 MG/DL RISK RATIO LDL/HDL (test cod e = 2238) 2.02 RATIO Nilo HathawayHEMOGLOBIN [id number] 00:00:00* Test Item Value Reference Range Interpretation Comme nts HEMOGLOBIN A1c (test code = 47031) 5.5 % Nilo HathawayCBC W/AUTO [id number] 00:00:00* Test Item Value Reference Range Interpretation [...] COUNT (test code = 1015) 398 K/UL Nilo [id number] 00:00:00* Test Item Value Reference Range Interpretation Comme nts TSH, THIRD GENERATION (test code = 2821) 8.480 UIU/ML Nilo Beebe AustinHEMOGLOBIN [id number] 00:00:00* Test Item Value Reference Range Interpretation Comme nts HEMOGLOBIN A1c (test code = 15157) 5.6 % LIPID [id number] 00:00:00* Test Item Value Reference Range Interpretation Comme nts CHOLESTEROL (test code = 2210) 167 MG/DL TRIGLYCERIDES (test code = 2232) 119 MG/DL HDL CHOLESTEROL (test code = 2220) 44 MG/DL CALC LDL CHOL (test code = 2237) 99 MG/DL RISK RATIO LDL/HDL (test cod e = 2238) 2.25 RATIO [id number] 00:00:00* Test Item Value Reference Range Interpretation Comme nts TSH, THIRD GENERATION (test code = 2821) 4.140 UIU/ML LIPID [id number] 00:00:00* Test Item Value Reference Range Interpretation Comme nts CHOLESTEROL (test code = 2210) 167 MG/DL TRIGLYCERIDES (test code = 2232) 119 MG/DL HDL CHOLESTEROL (test code = 2220) 44 MG/DL CALC LDL CHOL (test code = 2237) 99 MG/DL RISK RATIO LDL/HDL (test cod e = 2238) 2.25 RATIO Nilo [id number] 00:00:00* Test Item Value Reference Range Interpretation Comme nts TSH, THIRD GENERATION (test code = 2821) 4.140 UIU/ML Nilo HathawayHEMOGLOBIN [id number] 00:00:00* Test Item Value Reference Range Interpretation Comme nts HEMOGLOBIN A1c (test code = 03119) 5.6 % Nilo HathawayTHYROID II PROFILE (T3U, T4, T7, TSH)2015-07-02 00:00:00* Test Item Value Reference Range Interpretation Comme nts T3 UPTAKE (test code = 2817) 25.0 % T4 (THYROXINE) (test code = 2819) 9.4 UG/DL CALCULATED T7 (FTI) (test co de = 2820) 2.35 TSH (test code = 2821) 3.8 UIU/ML Nilo Beebe AustinTHYROID II PROFILE (T3U, T4, T7, TSH)2015-07-02 00:00:00* [...] TSH (test code = 2821) 2.0 UIU/ML Nilo Hathaway Notes Date/Time Note Provider Source [facility]
[2024-06-06] MEDS ORDERED: ONDANSETRON 4 MG/2 ML VIAL ONE (13:27)
[2024-06-06] MEDS ORDERED: NA CHLORIDE 0.9% 1,000 ML ONE (13:27)
[2024-06-06 13:29] LABS: Absolute Eosinophils 0.1 K/uL (0-0.5); Absolute Lymphocytes (CBC) 1.6 K/uL (0.7-4.9); Absolute Monocytes 0.5 K/uL (0.1-1.3); Absolute Neutrophil 6.3 K/uL (1.8-8.0); Basophils % 0.4 % (0-1.3); Eosinophils % 0.8 % (0-4.4); Hematocrit 43.7 % (36.0-45.0); Hemoglobin 14.2 g/dL (12.0-15.0); Lymphocytes % 18.6 % (15.3-44.8); MCH 27.9 pg (27.0-35.0); MCHC 32.5 g/dL (32.0-36.0); MCV 85.9 fL (80-100); MPV 7.5 fL (7.6-11.3); Monocytes % 5.7 % (3.3-12.3); Neutrophils % 74.5 % (41.7-73.7); Platelets 320 thou/uL (152-406); RBC Red Blood Cell Count 5.08 M/uL (3.86-4.86); Red Cell Distribution Width 15.6 % (12.1-15.2)
[2024-06-06 13:47] LABS: Albumin 3.7 g/dL (3.4-5.0); Albumin/Globulin Ratio 0.9 (1.1-1.8); Anion Gap 11.5 mEq/L (5.0-15.0); Bilirubin Total 0.2 mg/dL (0.2-1.0); Globulin 3.9 g/dL (2.3-3.5); Potassium 3.5 mEq/L (3.5-5.1); Protein, Total 7.6 g/dL (6.4-8.2); Troponin High Sensitivity 3.7 pg/mL (<58.9)
--- NOTE | 2024-06-06 14:32 | RAD REPORT ---
EXAM: CT brain without contrast HISTORY: Dizziness COMPARISON: 2021 TECHNIQUE: Multiple contiguous axial images were obtained and a CT of the brain without contrast. Sagittal and coronal reformats were performed. Automated exposure control, adjustment of the mA and/or kV according to patient size, and/or itera tive reconstruction. Unless otherwise specified, incidental findings do not require dedicated imaging follow-u FINDINGS: An intracranial bleed is not seen Ventricles are normal caliber No extra-axial fluid collection noted No significant hypodensity within the brain No fluid within the visualized sinuses or mastoids noted. IMPRESSION: No acute intracranial abnormality noted. If the patient's symptoms persist MRI of the brain would be recommended.
[2024-06-06] MEDS ORDERED: NA CHLORIDE 0.9% 500 ML ONE (15:42)
[2024-06-06 15:52] LABS: Barbiturates NEGATIVE (NEGATIVE); Benzodiazepines NEGATIVE (NEGATIVE); Cocaine NEGATIVE (NEGATIVE); METHAMPHETAM NEGATIVE (NEGATIVE); Methadone NEGATIVE (NEGATIVE); Opiates NEGATIVE (NEGATIVE); Phencyclidine NEGATIVE (NEGATIVE); THC Cannibis NEGATIVE (NEGATIVE)
[2024-06-06 16:14] LABS: Specific Gravity 1.011 (1.005-1.030); Sqamous Epithelial <5 /HPF (None Seen); Urine Bacteria None Seen /HPF (<20); Urine Bilirubin NEGATIVE (Negative); Urine Blood Negative (Negative); Urine Clarity Clear (Clear); Urine Color Colorless (Yellow); Urine Culture Reflex Order NOT NEEDED; Urine Glucose TRACE (Negative); Urine Ketones NEGATIVE (Negative); Urine Microscopic Reflex YN ORDER UMIC; Urine Nitrite NEGATIVE (Negative); Urine Protein NEGATIVE (Negative); Urine RBC <5 /HPF (None Seen); Urine Urobilinogen Normal (Normal); Urine WBC <5 /HPF (<5)
--- NOTE | 2024-06-06 16:47 | ER ---
Nurse's Notes [facility] Name: Mayra Gallo Age: 49 yrs Sex: Female : 1975 Arrival Date: 06/06/2024 Time: 12:58 Bed 20 Private MD: Diagnosis: Episodic lightheadedness;Near syncope;Dehydration Presentation: 06/06 13:03 Chief complaint: EMS states: "toned out for dizziness and headache. Pt diaphoretic on mb9 scene, urinated on self, and has a headache.". Coronavirus screen: Vaccine status: Patient reports receiving the 2nd dose of the covid vaccine. Ebola Screen: No symptoms or risks identified at this time. Initial Sepsis Screen: Does the patient meet any 2 criteria? No. Patient's initial sepsis screen is negative. Does the patient have a suspected source of infection? No. Patient's initial sepsis screen is negative. Risk Assessment: Do you want to hurt yourself or someone else? Patient reports no desire to harm self or others. Onset of symptoms was June 06, 2024. 13:03 Acuity: JOE 2 mb9 13:03 Method Of Arrival: EMS: [facility] mb9 Historical: - Allergies: 13:16 No Known Allergies; mb9 - Home Meds: 13:01 levothyroxine 100 mcg tablet daily [Active]; mb9 - PMHx: 13:01 Hypothyroidism; Anxiety; Brain bleed; mb9 13:16 Cerebrovascular accident; mb9 - PSHx: 13:01 brain surgery; mb9 - Immunization history:: Adult Immunizations up to date. - Infectious Disease History:: Denies. - Social history:: Smoking status: Patient denies any tobacco usage or history of. Screenin:02 [facility] ED Fall Risk Assessment (Adult) History of falling in the last 3 months, rs5 including since admission No falls in past 3 months (0 pts) Confusion or Disorientation No (0 pts) Intoxicated or Sedated No (0 pts) Impaired Gait Yes (1 pt) Mobility Assist Device Used Yes (1 pt) Altered Elimination No (0 pt) Score/Fall Risk Level 0 - 2 = Low Risk Oriented to surroundings, Maintained a safe environment. Abuse screen: Denies threats or abuse. Nutritional screening: No deficits noted. Tuberculosis screening: No symptoms or risk factors identified. Assessment: 13:02 General: Appears in no apparent distress. uncomfortable, Behavior is calm, cooperative. rs5 Pain: Complains of pain in head Pain currently is 3 out of 10 on a pain scale. Quality of pain is described as aching, Is continuous. Neuro: Level of Consciousness is awake, alert, obeys commands, Oriented to person, place, time, situation, Reports dizziness. Cardiovascular: Patient's skin is warm and dry. Respiratory: Airway is patent Respiratory effort is even, unlabored, Respiratory pattern is regular, symmetrical. GI: Abdomen is round non-distended, Abd is soft and non tender X 4 quads. : Reports incontinence, urgency. EENT: No signs and/or symptoms were reported regarding the EENT system. Derm: Skin is intact, Skin is pink, warm \\T\\ dry. Musculoskeletal: Range of motion: intact in all extremities. 13:48 Reassessment: Patient and/or family updated on plan of care and expected duration. Pain rs5 level reassessed. Patient is alert, oriented x 3, equal unlabored respirations, skin warm/dry/pink. 14:37 Reassessment: No changes from previously documented assessment. rs5 15:30 Reassessment: Patient and/or family updated on plan of care and expected duration. Pain rs5 level reassessed. Patient is alert, oriented x 3, equal unlabored respirations, skin warm/dry/pink. to bedside for orthostatics, pt complains of dizziness when moving from sitting to standing position. provider notified. Vital Signs: 13:03 BP 134 / 76; Pulse 122; Resp 18; Temp 98; Pulse Ox 100% ; mb9 13:49 BP 137 / 71; Pulse 116; Resp 17; Pulse Ox 98% on R/A; rs5 15:22 BP 117 / 78 Supine; Pulse 98; rs5 15:24 BP 124 / 86 Sitting; Pulse 104; rs5 15:26 BP 133 / 79 Standing; Pulse 116; rs5 17:00 BP 137 / 82; Pulse 99; Resp 17; Pulse Ox 99% on R/A; rs5 ED Course: 13:01 Patient arrived in ED. mb9 13:01 Saba Ortega MD is Attending Physician. sd2 13:02 Arm band placed on. mb9 13:02 Patient has correct armband on for positive identification. Placed in gown. Bed in low rs5 position. Call light in reach. Side rails up X2. 13:02 No provider procedures requiring assistance completed. rs5 13:15 Triage completed. mb9 13:23 Initial lab(s) drawn, by me, sent to lab. Inserted saline lock: 22 gauge in right mb9 antecubital area, using aseptic technique. Blood collected. Flushed with 10 mL NS. 13:23 Maintain EMS IV. Dressing intact. Good blood return noted. Site clean \\T\\ dry. Gauge \\T\\ mb 9 site: 18 g left FA. Flushed with 10 mL NS. 13:24 EKG done, by ED staff, reviewed by Saba Ortega MD. mb9 13:26 Hank Yi, RN is Primary Nurse. rs5 13:43 CT Head Brain wo Cont In Process Unspecified. EDMS 17:00 IV discontinued, intact, bleeding controlled, No redness/swelling at site. Pressure rs5 dressing applied. Administered Medications: 13:30 Drug: NS 0.9% IV 1000 ml IV at 1 bolus Per protocol; 1000 mL bolus Route: IV; Rate: 1 rs5 bolus; Site: right antecubital; 13:30 Drug: Ondansetron IVP 4 mg IVP once; over 2 minutes Route: IVP; Site: right antecubital;rs5 15:55 Drug: NS 0.9% IV 500 ml IV at bolus once Route: IV; Rate: bolus; Site: left antecubital;rs5 Medication: 13:49 VIS not applicable for this client. rs5 Outcome: 16:46 Discharge ordered by . sd2 17:00 Discharged to home ambulatory, with family, rs5 17:00 Condition: stable rs5 17:00 Discharge instructions given to patient, family, Instructed on discharge instructions, follow up and referral plans. Demonstrated understanding of instructions, follow-up care, 17:09 Patient left the ED. rs5 Signatures: Dispatcher [employer] EDMD Saba Ortega MD MD sd2 Wilkerson, Mary Beth, RN RN mb9 Hank Yi, MANUELA RN rs5 Corrections: (The following items were deleted from the chart) 13:15 13:02 Chief complaint: mb9 mb9 15:38 15:24 BP 133 / 79 Standing; Pulse 116bpm; rs5 rs5 19:02 19:02 BP 137 / 82; Pulse 99bpm; Resp 17bpm; Pulse Ox 99% RA; rs5 rs5
--- NOTE | 2024-06-06 16:47 | EDPHYS ---
Physician Documentation [facility] Name: Mayra Gallo Age: 49 yrs Sex: Female : 1975 Arrival Date: 06/06/2024 Time: 12:58 Bed 20 Private MD: ED Physician Saba Ortega HPI: 06/06 13:18 This 49 yrs old Female presents to ER via EMS with complaints of Dizziness. sd2 13:18 49 yo F presents via EMS with CC of lightheadedness that started after receiving a sd2 haircut. States feeling as if she was going to pass out with associated nausea and dry heaving. 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 Denies any associated CP or significant SOB. No prior hx of syncope. No current pain or nausea. Received 4mg of Zofran and 300 mL of NS en route and states she is now feeling hungry. No recent travel or leg edema. . Historical: - Allergies: 13:16 No Known Allergies; mb9 - Home Meds: 13:01 levothyroxine 100 mcg tablet daily [Active]; mb9 - PMHx: 13:01 Hypothyroidism; Anxiety; Brain bleed; mb9 13:16 Cerebrovascular accident; mb9 - PSHx: 13:01 brain surgery; mb9 - Immunization history:: Adult Immunizations up to date. - Infectious Disease History:: Denies. - Social history:: Smoking status: Patient denies any tobacco usage or history of. ROS: 13:18 Constitutional: Negative for fever, chills, and weight loss, Eyes: Negative for injury, sd2 pain, redness, and discharge, Cardiovascular: Negative for chest pain, palpitations, and edema, Respiratory: Negative for shortness of breath, cough, wheezing. Abdomen/GI: Negative for abdominal pain, vomiting, diarrhea. Positive for nausea. MS/Extremity: Negative for injury and deformity, Skin: Negative for injury, rash, and discoloration, Neuro: Negative for headache, numbness and tingling. Positive for lightheadedness. Exam: 13:18 Constitutional: This is a well developed, well nourished patient who is awake, alert, sd2 and in no acute distress. Head/Face: Normocephalic, atraumatic. Eyes: EOMI, normal conjunctiva bilaterally Neck: Trachea midline, no thyromegaly or masses palpated, and no cervical lymphadenopathy. Supple, full range of motion without nuchal rigidity, or vertebral point tenderness. No Meningismus. Chest/axilla: Normal chest wall appearance and motion. Nontender with no deformity. Cardiovascular: Regular rate and rhythm with a normal S1 and S2. No gallops, murmurs, or rubs. 2+ distal pulses. Respiratory: Lungs have equal breath sounds bilaterally, clear to auscultation and percussion. No rales, rhonchi or wheezes noted. No increased work of breathing, no retractions or nasal flaring. Abdomen/GI: Soft, non-tender, with normal bowel sounds. No guarding or rebound. No evidence of tenderness throughout. Skin: Warm, dry with normal turgor. Normal color with no rashes, no lesions, and no evidence of cellulitis. MS/ Extremity: Pulses equal, no cyanosis. Neurovascular intact. Full, normal range of motion. Neuro: Awake and alert, GCS 15, oriented to person, place, time, and situation. Cranial nerves II-XII grossly intact. Motor strength 5/5 in all extremities. Sensory grossly intact. Cerebellar exam normal. Normal gait. Psych: Awake, alert, with orientation to person, place and time. Behavior, mood, and affect are within normal limits. 13:37 ECG was reviewed by the Attending Physician. Sinus tachycardia, rate 122, no STEMI sd2 criteria Vital Signs: 13:03 BP 134 / 76; Pulse 122; Resp 18; Temp 98; Pulse Ox 100% ; mb9 13:49 BP 137 / 71; Pulse 116; Resp 17; Pulse Ox 98% on R/A; rs5 15:22 BP 117 / 78 Supine; Pulse 98; rs5 15:24 BP 124 / 86 Sitting; Pulse 104; rs5 15:26 BP 133 / 79 Standing; Pulse 116; rs5 17:00 BP 137 / 82; Pulse 99; Resp 17; Pulse Ox 99% on R/A; rs5 MDM: 13:01 Patient medically screened. sd2 13:18 Differential Diagnosis Dehydration, anemia, electrolyte abnormality, ACS, doubt CVA sd2 among others. Data reviewed: vital signs, nurses notes, EMS record, lab test result(s), EKG, radiologic studies. I considered the following discharge prescriptions or medication management in the emergency department Medications were administered in the Emergency Department. See MAR. 16:43 Counseling: I had a detailed discussion with the patient and/or guardian regarding the sd2 historical points, exam findings, and any diagnostic results supporting the discharge/admit diagnosis, lab results, radiology results, the need for outpatient follow up, to return to the emergency department if symptoms worsen or persist or if there are any questions or concerns that arise at home. ED course: Pt feeling improved after IVFs. No signs of central etiology of dizziness. Reports it is lightheadedness only and has improved. No focal neuro deficits. CT negative and labs reassuring. Pt ambulatory. Reports she does not drink much water at all and was likely dehydrated. She is comfortable with plan for discharge and outpatient follow up and verbalizes understanding of strict return precautions. . 06/06 13:15 Order name: CBC with Diff; Complete Time: 14:43 sd2 06/06 13:15 Order name: CMP; Complete Time: 14:43 sd2 06/06 13:15 Order name: Magnesium; Complete Time: 14:43 sd2 06/06 13:15 Order name: Troponin High Sensitivity; Complete Time: 14:43 sd2 06/06 13:15 Order name: BNP; Complete Time: 14:43 sd2 06/06 13:21 Order name: Urinalysis w/ reflexes; Complete Time: 16:16 sd2 06/06 13:21 Order name: UDS; Complete Time: 16:16 sd2 06/06 13:21 Order name: CT Head Brain wo Cont; Complete Time: 14:43 sd2 06/06 13:15 Order name: EKG - Nurse/Tech; Complete Time: 13:26 sd2 06/06 13:15 Order name: Orthostatic Blood Pressure; Complete Time: 15:37 sd2 Administered Medications: 13:30 Drug: NS 0.9% IV 1000 ml IV at 1 bolus Per protocol; 1000 mL bolus Route: IV; Rate: 1 rs5 bolus; Site: right antecubital; 13:30 Drug: Ondansetron IVP 4 mg IVP once; over 2 minutes Route: IVP; Site: right antecubital;rs5 15:55 Drug: NS 0.9% IV 500 ml IV at bolus once Route: IV; Rate: bolus; Site: left antecubital;rs5 Disposition Summary: 06/06/24 16:46 Discharge Ordered Problem: new sd2 Symptoms: have improved sd2 Condition: Stable sd2 Diagnosis - Episodic lightheadedness sd2 - Near syncope sd2 - Dehydration sd2 Followup: sd2 - With: Private Physician - When: 2 - 3 days - Reason: Recheck today's complaints, Continuance of care, Re-evaluation by your physician Discharge Instructions: - Discharge Summary Sheet sd2 - Dehydration, Adult sd2 - Near-Syncope sd2 Forms: - Medication Reconciliation Form sd2 - Antibiotic Education sd2 - Prescription Opioid Use sd2 - Patient Portal Instructions sd2 - Leadership Thank You Letter sd2 Signatures: Dispatcher [employer] Saba Heath MD MD sd2 Leidy Ortiz RN RN mb9 Hank Yi RN RN rs5
[2024-06-06 17:23] VITALS: TEMP 98
[2024-06-06 17:24] VITALS: O2SAT 98
[2024-06-06 17:29] VITALS: BP 133/79
--- NOTE | 2024-06-07 12:19 | EKG ---
Test Date: 2024-06-06 Test Time: 13:27:32 Photo Specialist: MB MEASUREMENT RESULTS: Intervals: Rate: 122 NV: 150 QRSD: 74 QT: 308 QTc: 438 Nesmith: P: 67 NV: 150 QRS: 46 T: 45 INTERPRETIVE STATEMENTS: Sinus tachycardia Nonspecific T wave abnormality Abnormal ECG Compared to ECG 04/20/2024 17:25:25 T-wave abnormality now present Sinus rhythm no longer present Electronically Signed On 06-07-24 12:16:57 CDT by Jed Deluna
== END 2024-06-06 17:09 | disposition home or self-care (01) ==
LOC: ER 12:58
DX: R42 Dizziness and giddiness (principal); E86.0 Dehydration; R55 Syncope and collapse
CPT/HCPCS: 36415; 70450; 80053; 80307; 81001; 83735; 83880; 84484; 85025; 93005; J2405; J7030; J7040